=== PATIENT | male | born 1970 | race Caucasian/White ===

== ENCOUNTER 2017-01-30 20:20 | Emergency (ER) | payer BC ==
[2017-01-30 20:27] VITALS: RESP 18
--- NOTE | 2017-01-30 21:23 | ED ---
General Adult HPI - General Chief complaint: Shortness of Breath Stated complaint: congestion, jamil Time Seen by Provider: 01/30/17 20:57 Source: patient Mode of arrival: ambulatory Limitations: no limitations - History of Present Illness Initial comments: Patient is a 46-year-old male with history of GERD, hypertension, hyperlipidemia , tobacco abuse presenting with cough and shortness breath for the past 2 weeks. Patient states he been trying everything [id number] without relief. Patient states she has multiple sick contacts at home and at work. Patient smokes on average a pack a day. Patient denies fever, chills, chest pain. Patient states he wakes up having coughing fits at night. Patient denies influenza vaccine this year. - Related Data Home Medications Medication Instructions Recorded Confirmed Metoprolol Tartrate [Lopressor] 100 mg PO BID 04/10/15 01/30/17 Aspirin 325 mg PO DAILY 01/30/17 01/30/17 Lansoprazole 15 mg PO DAILY 01/30/17 01/30/17 Olmesartan/Hydrochlorothiazide 1 tab PO DAILY 01/30/17 01/30/17 [Benicar Hct 40-12.5 mg Tablet] Simvastatin [Zocor] 20 mg PO DAILY 01/30/17 01/30/17 Allergies Allergy/AdvReac Type Severity Reaction Status Date / Time No Known Allergies Allergy Verified 01/30/17 21:13 Review of Systems ROS Statement: Those systems with pertinent positive or pertinent negative responses have been documented in the HPI. Constitutional: No fever and no chills. HENT: +congestion, no rhinorrhea and +sore throat. Eyes: No discharge and no redness. Respiratory: +cough and +shortness of breath. Cardiovascular: No chest pain and no palpitations. Gastrointestinal: No nausea, no vomiting, no abdominal pain and no diarrhea. Genitourinary: No dysuria and no hematuria. Musculoskeletal: No back pain and no arthralgias. Skin: No pallor and no rash. Neurological: No dizziness and No headaches. ROS Other: All systems not noted in ROS Statement are negative. Past Medical History Past Medical History: CVA/TIA, GERD/Reflux, Hypertension Additional Past Medical History / Comment(s): hypercholestremia History of Any Multi-Drug Resistant Organisms: None Reported Additional Past Surgical History / Comment(s): eye surgery Past Psychological History: No Psychological Hx Reported Smoking Status: Current every day smoker Past Alcohol Use History: None Reported Past Drug Use History: Marijuana General Exam - General Exam Comments Initial Comments: Constitutional: Patient appears well-developed and well-nourished. Mild distress with a dry tacky cough. Head: Normocephalic and atraumatic. Eyes: Conjunctivae and EOM are normal. Right eye exhibits no discharge. Left eye exhibits no discharge. No scleral icterus. Neck: Normal range of motion. Neck supple. Cardiovascular: Normal rate and regular rhythm. No murmur heard. Pulmonary/Chest: Effort normal and breath sounds normal. No respiratory distress. No wheezes. Abdominal: Soft. No distension. There is no tenderness. There is no rebound and no guarding. Musculoskeletal: Normal range of motion. No edema or tenderness. Neurological: Patient alert and oriented to person, place, and time. Skin: Skin is warm and dry. Not diaphoretic. Nursing notes and vitals reviewed. Limitations: no limitations Course Vital Signs 01/30/17 01/30/17 20:23 21:31 Temperature 97.4 F L 97.1 F L Pulse Rate 84 74 Respiratory 18 18 Rate Blood Pressure 160/97 130/78 O2 Sat by Pulse 98 99 Oximetry - Reevaluation(s) Reevaluation #1: 01/30/17 22:13 Patient resting comfortably in bed awaiting flu results. Medical Decision Making - Medical Decision Making Patient's a 46-year-old male with tobacco abuse presenting with cough for 2 weeks. Patient has multiple sick contacts. Physical exam unremarkable chest x- ray negative. Flu negative. Prior to discharge, patient was resting comfortably in bed. Course of stay improved. Denies pain. Discussed physical exam and diagnostic tests with patient. Questions answered and patient is agreeable to discharge with close follow up with Primary Care Physician. Instructed to return to Emergency Department if symptoms worsen. - Lab Data Lab Results 01/30/17 Range/Units 21:25 Influenza Type A RNA Not Detected (Not Detectd) Influenza Type B (PCR) Not Detected (Not Detectd) Disposition Clinical Impression: Cough Disposition: HOME SELF-CARE Condition: Good Instructions: Chronic Cough (ED) Referrals: Paulo Rowell MD [Primary Care Provider] - 1-2 days
--- NOTE | 2017-01-30 21:36 | XR ---
EXAMINATION TYPE: XR chest 2V DATE OF EXAM: 01/30/2017 9:28 PM COMPARISON: 02/10/2014 HISTORY: Cough and congestion TECHNIQUE: Frontal and lateral views of the chest are obtained. FINDINGS: Heart and mediastinum are normal. Lungs are clear. Diaphragm is normal. Bony thorax is int act. IMPRESSION: Normal chest. No change.
[2017-01-30 22:42] VITALS: BP 123/88; PULSE 66; TEMP 97.7
== END 2017-01-30 22:41 | disposition home or self-care (01) ==
LOC: EC 20:20
DX: R05 Cough (principal); R06.02 Shortness of breath; I10 Essential (primary) hypertension; K21.9 Gastro-esophageal reflux disease without esophagitis; E78.00 Pure hypercholesterolemia, unspecified; F17.200 Nicotine dependence, unspecified, uncomplicated; Z79.82 Long term (current) use of aspirin; Z79.899 Other long term (current) drug therapy
CPT/HCPCS: 71020; 87502; 99285

== ENCOUNTER 2018-05-07 17:29 | Inpatient (IN) | payer BC ==
[2018-05-07 18:17] LABS: Basophils # (A) 0.1 k/uL (0-0.2); Basophils % (A) 1 %; Eosinophils # (A) 0.2 k/uL (0-0.7); Eosinophils % (A) 2 %; HCT 44.9 % (39.0-53.0); Lymphocytes # (A) 2.3 k/uL (1.0-4.8); Lymphocytes % (A) 27 %; MCH 29.4 pg (25.0-35.0); MCHC 35.6 g/dL (31.0-37.0); MCV 82.6 fL (80.0-100.0); Mean Platelet Volume 6.2; Monocytes # (A) 0.5 k/uL (0-1.0); Monocytes % (A) 6 %; Neutrophils # (A) 5.4 k/uL (1.3-7.7); Neutrophils % (A) 63 %; Platelet Count 337 k/uL (150-450); RBC 5.44 m/uL (4.30-5.90); RDW 13.1 % (11.5-15.5); WBC 8.6 k/uL (3.8-10.6)
[2018-05-07 18:26] LABS: ALT 32 U/L (21-72); AST 22 U/L (17-59); Albumin 4.3 g/dL (3.5-5.0); Alkaline Phosphatase 68 U/L (38-126); Anion Gap 12 mmol/L; Blood Urea Nitrogen 18 mg/dL (9-20); Calcium 9.4 mg/dL (8.4-10.2); Carbon Dioxide 24 mmol/L (22-30); Chloride 102 mmol/L (98-107); Glucose 96 mg/dL (74-99); Partial Thromboplastin Time 25.9 sec (22.0-30.0); Potassium 4.2 mmol/L (3.5-5.1); Prothrombin Time 10.1 sec (9.0-12.0); Sodium 138 mmol/L (137-145); Total Bilirubin 0.5 mg/dL (0.2-1.3)
[2018-05-07 19:10] LABS: Creatine Kinase MB 2.8 ng/mL (0.0-2.4); Troponin I 0.075 ng/mL (0.000-0.034)
[2018-05-07] MEDS ORDERED: ASPIRIN 81 MG PO STA (19:19)
[2018-05-07] MEDS ORDERED: HEPARIN SODIUM,PORCINE 5,000 UNIT/ML 1 ML VIAL IV ONE (19:31)
[2018-05-07] MEDS ORDERED: HEPARIN SODIUM,PORCINE 5,000 UNIT/ML 1 ML VIAL IV PRN (19:31)
--- NOTE | 2018-05-07 19:41 | ED ---
Chest Pain HPI - General Chief Complaint: Chest Pain Stated Complaint: CHEST/ABDOMINAL PAIN RADIATING TO NECK AND BACK Time Seen by Provider: 05/07/18 19:18 Source: patient Mode of arrival: ambulatory Limitations: no limitations - History of Present Illness Initial Comments: Patient is a 47-year-old male who presents with a chief complaint of diaphoresis , nausea, shoulder and jaw pain, and lightheadedness. Patient states that his symptoms started last Monday. 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 The patient states that he was not heavily exerting himself the time. The patient states that given the repeated episodes of the symptoms she decided to come to the ER for evaluation. Patient states he is a current pack and a half per day smoker, he has hypertension, hyperlipidemia, and hypertriglyceridemia. The patient is not diabetic though he states diabetes runs in his family. The patient states he cannot identify an inciting incident. Aggravating factors are exertion. Alleviating factors are rest. - Related Data Home Medications Medication Instructions Recorded Confirmed Metoprolol Tartrate [Lopressor] 100 mg PO BID 04/10/15 05/07/18 Aspirin 325 mg PO DAILY 01/30/17 05/07/18 Lansoprazole 15 mg PO DAILY 01/30/17 05/07/18 Olmesartan/Hydrochlorothiazide 1 tab PO DAILY 01/30/17 05/07/18 [Benicar Hct 40-12.5 mg Tablet] Simvastatin [Zocor] 20 mg PO DAILY 01/30/17 05/07/18 Allergies Allergy/AdvReac Type Severity Reaction Status Date / Time No Known Allergies Allergy Verified 05/07/18 19:40 Review of Systems ROS Statement: Those systems with pertinent positive or pertinent negative responses have been documented in the HPI. ROS Other: All systems not noted in ROS Statement are negative. Cardiovascular: Reports: chest pain, dyspnea on exertion Past Medical History Past Medical History: CVA/TIA, GERD/Reflux, Hypertension Additional Past Medical History / Comment(s): hypercholestremia History of Any Multi-Drug Resistant Organisms: None Reported Additional Past Surgical History / Comment(s): eye surgery Past Psychological History: No Psychological Hx Reported Smoking Status: Current every day smoker Past Alcohol Use History: Occasional Past Drug Use History: Marijuana General Exam Limitations: no limitations General appearance: alert, in no apparent distress Head exam: Present: atraumatic, normocephalic Eye exam: Present: normal appearance ENT exam: Present: normal exam Neck exam: Present: normal inspection Respiratory exam: Present: normal lung sounds bilaterally. Absent: respiratory distress, wheezes Cardiovascular Exam: Present: regular rate, normal rhythm GI/Abdominal exam: Present: soft. Absent: distended, tenderness Rectal exam: Present: deferred Extremities exam: Present: normal inspection Back exam: Present: normal inspection Neurological exam: Present: alert, oriented X3 Psychiatric exam: Present: normal affect, normal mood Skin exam: Present: warm, dry, intact Course Vital Signs 05/07/18 05/07/18 17:42 20:20 Temperature 98.1 F Pulse Rate 69 60 Respiratory 18 18 Rate Blood Pressure 141/92 116/68 O2 Sat by Pulse 98 98 Oximetry Chest Pain MDM - Differential Diagnosis AMI, ACS - MDM Patient presents with a chief complaint of anginal type symptoms. On initial evaluation, vitals are stable, patient is in no acute distress. EKG and labs performed while patient was in triage. EEG performed at 1803 shows normal sinus rhythm with a rate of 67 bpm. EKG is otherwise unremarkable. Lab evaluation shows positive cardiac enzymes with a troponin of 0.075, and a CK-MB of 2.8. Currently pending BNP, and chest x-ray. On exam, patient has nasal symptoms with minimal exertion. Even this finding, the patient was started on heparin. He denies any history of GI bleeding or active bleeding. She was given an aspirin. Discussed with pharmacy, patient to be started on low intensity heparin drip. 7:54 PM Case discussed with Dr. Bhagat who accepts admission with consult cardiology. 9:06 PM CXR and BNP unremarkable. patient remains stable. - Wells Criteria Clinical Symptoms of DVT: (0) No No Alternative Diagnosis: (0) No Immobilization of Surgery in Previous 4 Weeks: (0) No Previous DVT/PE: (0) No Hemoptysis: (0) No Malignancy: (0) No - PERC Rule Heart Rate < 100: (0) No g: (0) No No Prior History pf DVT/PE: (0) No No Recent Trauma or Surgery: (0) No Hemoptysis: (0) No No Exogenous Estrogen: (0) No No Clinical Signs Suggesting DVT: (0) No - LEE Score Age > 65: (0) No 3 or more CAD Risk Factors: (1) Yes Known CAD with more than 50% Stenosis: (0) No Aspirin use within the Past 7 Days: (1) Yes Elevated Cardiac Markers: (1) Yes ST Deviation Greater than 0.5mm: (0) No Disposition Clinical Impression: NSTEMI (non-ST elevated myocardial infarction) Disposition: ADMITTED IP TO THIS HOSP Condition: Good - Out of Hospital Transfer - Req. Specs Out of Hospital Transfer - Requested Specifics: Telemetry Unit
[2018-05-07] MEDS ORDERED: HEPARIN SOD,PORK IN 0.45% NACL 25,000 UNIT in 0.45% NACL 1 500ML.BAG IV SCH (19:45)
[2018-05-07] MEDS ORDERED: NALOXONE 0.4 MG/ML 1 ML VIAL IV PRN (19:50)
--- NOTE | 2018-05-07 20:16 | XR ---
EXAMINATION TYPE: XR chest 2V DATE OF EXAM: 05/07/2018 COMPARISON: 01/30/2017 HISTORY: Chest pain left arm pain TECHNIQUE: Frontal and lateral views of the chest are obtained. FINDINGS: Heart and mediastinum are normal. Lungs are clear. Diaphragm is normal. Bony thorax appear s normal. IMPRESSION: Normal chest. No change.
[2018-05-07 22:57] LABS: Glucose,Whole Blood 124 mg/dL (75-99)
[2018-05-07 23:18] VITALS: BMI 34.6
[2018-05-08 04:48] LABS: Basophils # (A) 0.1 k/uL (0-0.2); Basophils % (A) 1 %; Eosinophils # (A) 0.2 k/uL (0-0.7); Eosinophils % (A) 2 %; HCT 43.7 % (39.0-53.0); Lymphocytes # (A) 3.6 k/uL (1.0-4.8); Lymphocytes % (A) 50 %; MCH 28.8 pg (25.0-35.0); MCHC 34.3 g/dL (31.0-37.0); Mean Platelet Volume 6.5; Monocytes # (A) 0.5 k/uL (0-1.0); Monocytes % (A) 7 %; Neutrophils # (A) 2.8 k/uL (1.3-7.7); Neutrophils % (A) 38 %; Platelet Count 301 k/uL (150-450); RDW 12.9 % (11.5-15.5); WBC 7.3 k/uL (3.8-10.6)
[2018-05-08 05:31] LABS: Anion Gap 10 mmol/L; Blood Urea Nitrogen 15 mg/dL (9-20); Carbon Dioxide 24 mmol/L (22-30); Chloride 105 mmol/L (98-107); Glucose 88 mg/dL (74-99); Potassium 4.1 mmol/L (3.5-5.1); Sodium 139 mmol/L (137-145)
[2018-05-08] MEDS ORDERED: ALPRAZolam 0.5 MG TAB PO PRN (09:29)
[2018-05-08] MEDS ORDERED: ALPRAZolam 0.25 MG TAB PO PRN (09:29)
[2018-05-08] MEDS ORDERED: NITROGLYCERIN SL TABS 0.4 MG TAB SUBLINGUAL PRN ×2 (09:29→13:20)
[2018-05-08] MEDS ORDERED: SODIUM CHLORIDE 0.9% 1,000 ML in EMPTY BAG 1 BAG IV ONE (09:29)
[2018-05-08] MEDS ORDERED: ASPIRIN 325 MG TAB PO STA (09:36)
[2018-05-08] MEDS ORDERED: ATORVASTATIN 80 MG TAB PO STA (09:36)
--- NOTE | 2018-05-08 10:40 | CONS ---
CONSULTATION CHIEF COMPLAINT: Chest pain. Ferny is a 47-year-old gentleman with history of hypertension and dyslipidemia and smoking, who presented to hospital complaining of chest pain. He went to work around 4:00 yesterday and started having what he describes as epigastric discomfort, nausea, and felt unwell. It was moderate to severe intensity, came on at rest without clear- cut relieving or exacerbating factors. These symptoms persisted and the patient came to the ER and got admitted from there with a diagnosis of unstable angina. His EKG does not reveal any ischemic changes. However, his troponin was elevated at 0.07 and the second set was 0.1 and the third set was 1.2. At the time of my evaluation this morning, patient is chest pain-free and is hemodynamically stable. His labs show a hemoglobin of 15, platelet count of 301, potassium is 4.1 and creatinine is 0.9. Patient's clinical presentation is consistent with a diagnosis of non ST-segment elevation CA and I advised the patient to undergo cardiac catheterization with a view to performing angioplasty. The patient has been explained of risks, benefits and alternatives, understood and accepted. PAST MEDICAL HISTORY: Significant for hypertension and dyslipidemia. MEDICATIONS: Current medications include Zocor 20 q. daily, Benicar, Lopressor 100 b.i.d., Protonix, and aspirin. ALLERGIES: There are no known drug allergies. FAMILY HISTORY: Family history is significant for coronary artery disease in his father. SOCIAL HISTORY: Significant for smoking. There is no history of EtOH abuse or drug abuse. REVIEW OF SYSTEMS: HEENT is unremarkable. CARDIAC: As described above. RESPIRATORY: Negative. GI: Negative. GENITOURINARY: Negative. ALLERGY/IMMUNOLOGICAL: Negative. SKIN: Negative. MUSCULOSKELETAL: Negative. ENDOCRINE: Negative. HEMATOLOGICAL: Negative. DERM: Negative. CONSTITUTIONAL: Negative. ONCOLOGICAL: Negative. Rest of the system review is not relevant. PHYSICAL EXAMINATION: On exam, patient is comfortable at rest. Afebrile. Vital signs are stable. There is no jugular venous distention. Carotid upstroke is normal. There is no bruit. Chest exam reveals good air entry bilaterally. Heart exam reveals first and second heart sounds. No gallop. No murmur. No rub. Abdomen is soft, nontender. Examination of extremities did not reveal any edema. Peripheral pulses are felt. FAMILY EDUCATOR exam did not reveal focal neurological deficits. LABS: Labs show a hemoglobin of 15. Creatinine is 0.9. Troponins are elevated. ASSESSMENT: 1. Acute non ST-segment elevation myocardial infarction. 2. Hypertension. 3. Dyslipidemia. PLAN: I will obtain a 2D echo to assess LV function and schedule him for cardiac catheterization. The patient had been explained of risks, benefits and alternatives understood and accepted. NELA / SIOMARA: [id number] /
[2018-05-08] MEDS ORDERED: LIDOCAINE 1% INJ 10MG/ML (20 ML MDV) ONE (11:15)
--- NOTE | 2018-05-08 11:18 | P.HPIM ---
History of Present Illness H&P Date: 05/08/18 Chief Complaint: epigastric discomfort 47-year-old male who presented to the emergency room with a chief complaint of feeling "queasy". The patient reports his symptoms started on Monday. He states he had some epigastric discomfort and some tightness in his arm and shoulder. He reports nausea. Denies emesis. He states he had ate a large meal and attributed his symptoms to that. He states he was at work yesterday when he began to have the same feelings of queasiness. He also reports tightness in his back and neck. He once again denied any chest pain. He denied shortness of breath. He did have nausea again yesterday, but denied any episodes of emesis. Denies lightheadedness or dizziness. Denies fever or chills. The patient has a history of hypertension, GERD, and TIA in 2014. He is a current every day smoker and reports smoking between 1-1/2 packs per day. Chest x-ray completed in the emergency room was negative for acute process. EKG revealed sinus mechanism without ST elevation. Troponins were elevated 0.075, 0.144, and 1.200. White count 8.6. Hemoglobin 16.0. Platelet count 337. Sodium 130. Potassium 4.2. BUN 18. Creatinine 1.12. BNP 49. The patient was placed on a heparin drip and admitted to the hospital for further evaluation under the care of Dr. Bhagat. Consultations were placed to cardiology. Review of Systems Those systems with pertinent positive or pertinent negative responses have been documented in the HPI Past Medical History Past Medical History: CVA/TIA, GERD/Reflux, Hypertension Additional Past Medical History / Comment(s): hypercholestremia History of Any Multi-Drug Resistant Organisms: None Reported Additional Past Surgical History / Comment(s): eye surgery, vasectomy Past Psychological History: No Psychological Hx Reported Smoking Status: Current every day smoker Past Alcohol Use History: Occasional Past Drug Use History: Marijuana - Past Family History Father Additional Family Medical History / Comment(s): from circulation issues at the age of 63 Mother Additional Family Medical History / Comment(s): from CA at the age of 58 Medications and Allergies Home Medications Medication Instructions Recorded Confirmed Type Metoprolol Tartrate [Lopressor] 100 mg PO BID 04/10/15 05/07/18 History Aspirin 325 mg PO DAILY 01/30/17 05/07/18 History Lansoprazole 15 mg PO DAILY 01/30/17 05/07/18 History Olmesartan/Hydrochlorothiazide 1 tab PO DAILY 01/30/17 05/07/18 History [Benicar Hct 40-12.5 mg Tablet] Simvastatin [Zocor] 20 mg PO DAILY 01/30/17 05/07/18 History Allergies Allergy/AdvReac Type Severity Reaction Status Date / Time No Known Allergies Allergy Verified 05/07/18 19:40 Physical Exam Vitals: Vital Signs Temp Pulse Pulse Resp BP BP Pulse Ox 05/08/18 09:00 62 102/74 97 05/08/18 08:00 98 F 68 109/68 97 05/08/18 04:00 97.6 F 56 L 12 109/81 98 05/08/18 00:00 97.5 F L 57 L 16 105/67 95 05/07/18 22:07 98.2 F 68 18 118/80 98 05/07/18 22:00 97.5 F L 54 L 18 127/86 05/07/18 21:43 65 18 125/72 96 05/07/18 20:20 60 18 116/68 98 05/07/18 19:15 66 05/07/18 17:42 98.1 F 69 18 141/92 98 Intake and Output 05/07/18 05/08/18 05/08/18 22:59 06:59 14:59 Intake Total 623 Output Total 0 Balance 623 0 Intake: Intake, IV Titration 143 Amount Heparin Sod,Pork in 0.45% 143 NaCl 25,000 unit In 0.45 % NaCl 1 500ml.bag @ 12 UNITS/KG/HR 23.62 mls/hr IV .[id number] [facility] Rx#: [id number] Tube Feeding 480 Output: Urine 0 Other: Voiding Method Toilet # Voids 1 0 Weight 97.3 kg 97.3 kg 97.3 kg GENERAL: This is a 47-year-old male in no apparent distress at the time of examination. Pleasant and cooperative. HEENT: Head is atraumatic, normocephalic. Pupils are equal, round, and reactive to light. Sclerae anicteric. Conjunctivae are clear. Mucus membranes of the mouth are moist. Neck is supple. RESPIRATORY: Clear to ausculation. No wheezes, rales, or rhonchi. No use of accessory muscles. Patient maintaining oxygen saturation greater than 92%. No chest wall tenderness is noted on palpation or with deep breathing. CARDIOVASCULAR: Regular rate and rhythm. S1 and S2 noted. No systolic or diastolic murmur auscultated. No JVD noted. No S3 or S4 noted. GASTROINTESTINAL: No distention noted. Abdomen soft and round. Normal active bowel sounds auscultated x 4 quadrants. No pain or tenderness noted upon palpation. INTEGUMENTARY: No cyanosis. No jaundice. No rashes noted. No cellulitis noted. EXTREMITIES: 2+ peripheral pulses. No evidence of peripheral edema. No calf tenderness noted. NEUROLOGIC: Cranial nerves II-XII intact. PSYCHIATRIC: Awake, alert, and oriented X 3. Appropriate affect. Intact judgement and insight. Results CBC & Chem 7: 05/08/18 04:23 05/08/18 04:23 Labs: Abnormal Lab Results - Last 24 Hours (Table) 05/07/18 05/07/18 05/07/18 Range/Units 18:06 21:40 22:56 APTT (22.0-30.0) sec POC Glucose (mg/dL) 124 H (75-99) mg/dL CK-MB (CK-2) 2.8 H* (0.0-2.4) ng/mL Troponin I 0.075 H* 0.144 H* (0.000-0.034) ng/mL 05/08/18 05/08/18 05/08/18 Range/Units 02:10 04:23 09:01 APTT 36.8 H 47.7 H (22.0-30.0) sec POC Glucose (mg/dL) (75-99) mg/dL CK-MB (CK-2) (0.0-2.4) ng/mL Troponin I 1.200 H* (0.000-0.034) ng/mL Thrombosis Risk Factor Assmnt - Choose All That Apply Any of the Below Risk Factors Present?: Yes Each Factor Represents 1 point: Age 41-60 years, Obesity (BMI >25) Thrombosis Risk Factor Assessment Total Risk Factor Score: 2 Thrombosis Risk Factor Assessment Level: Low Risk Assessment and Plan Plan: ASSESSMENT: 1. Acute non-ST elevated myocardial infarction 2. Hypertension 3. History of TIA, 2015 4. Dyslipidemia 5. Nicotine dependence, patient is a current cigarette smoker and reports 1 to 1.5 PPD 6. Obesity: BMI 34.6 PLAN: Cardiology on consult. Appreciate recommendations and input Echocardiogram ordered. Await results Patient to undergo cardiac catheterization Home meds as appropriate Monitor labs GI prophylaxis: Pepcid 20mg PO BID DVT prophylaxis: Patient currently on heparin drip Monitor vital signs and address as appropriate Discharge planning: Patient to return home when stable Further recommendations pending patient's course Nurse practitioner note has been reviewed by physician. Signing provider agrees with the documented findings, assessment, and plan of care.
[2018-05-08 11:24] LABS: Glucose,Whole Blood 97 mg/dL (75-99)
[2018-05-08] MEDS ORDERED: HEPARIN SODIUM,PORCINE 30 ML 30 ML ONE (11:35)
[2018-05-08] MEDS ORDERED: MIDAZOLAM 2 MG/2 ML VIAL ONE (11:38)
[2018-05-08] MEDS ORDERED: SODIUM CHLORIDE 0.9% 500 ML IV ONE ×2 (11:42→12:36)
[2018-05-08] MEDS ORDERED: MIDAZOLAM 2 MG/2 ML VIAL IVP ONE (11:48)
[2018-05-08] MEDS ORDERED: LIDOCAINE 1% INJ 10MG/ML (20 ML MDV) SQ ONE (11:50)
[2018-05-08] MEDS ORDERED: fentaNYL (PF) 50 MCG/ML 2 ML AMP ONE (11:53)
[2018-05-08] MEDS: fentaNYL (PF) 50 MCG/ML 2 ML AMP IVP ONE ×2 (11:54→12:34)
[2018-05-08] MEDS ORDERED: BIVALIRUDIN 250 MG in SODIUM CHLORIDE 0.9% 50 ML IV ONE (12:21)
[2018-05-08] MEDS ORDERED: BIVALIRUDIN BOLUS 250 MG/50 ML IV ONE ×2 (12:21)
[2018-05-08] MEDS ORDERED: niCARdipine 25 MG/10 ML VIAL ONE (12:23)
[2018-05-08] MEDS ORDERED: CLOPIDOGREL 75 MG TAB ONE (12:23)
--- NOTE | 2018-05-08 12:27 | ECHOF ---
Referral Reason:mi MEASUREMENTS -------- HEIGHT: 165.1 cm WEIGHT: 97.5 kg BP: 123/80 IVSd: 1.3 cm (0.6 - 1.1) LVIDd: 3.7 cm (3.9 - 5.3) LVPWd: 1.2 cm (0.6 - 1.1) IVSs: 1.6 cm LVIDs: 2.8 cm LVPWs: 1.2 cm Ao Diam: 3.3 cm (2.0 - 3.7) AV Cusp: 1.7 cm (1.5 - 2.6) LA Diam: 2.9 cm (2.7 - 3.8) MV EXCURSION: 19.913 mm (> 18.000) MV EF SLOPE: 143 mm/s (70 - 150) EPSS: 0.8 cm MV E Teddy: 0.64 m/s MV DecT: 170 ms MV A Teddy: 0.50 m/s MV E/A Ratio: 1.28 RAP: 5.00 mmHg RVSP: 9.06 mmHg FINDINGS -------- Sinus rhythm. This was a techncally difficult study with suboptimal views, , Lumason utilized for enhancement of im ages. The left ventricular size is normal. There is borderline concentric left ventricular hypertrophy. Overall left ventricular systolic function is low-normal with, an EF between 50 - 55 %. Inferior b rohit Hypokinesis The right ventricle is normal in size. The left atrial size is normal. The right atrial size is normal. 5.0mg OF Lumason UTLIZED: 2 OR MORE WALL SEGMENTS NOT VISUALIZED. The aortic valve was not well visualized. Mild mitral annular calcification present. Mild mitral regurgitation is present. Mild tricuspid regurgitation present. There is no evidence of pulmonary hypertension. The right v entricular systolic pressure, as measured by Doppler, is 9.06mmHg. The pulmonic valve was not well visualized. The aortic root size is normal. There is no pericardial effusion. CONCLUSIONS -------- 1. This was a techncally difficult study with suboptimal views, , Lumason utilized for enhancement of images. 2. The left ventricular size is normal. 3. There is borderline concentric left ventricular hypertrophy. 4. Overall left ventricular systolic function is low-normal with, an EF between 50 - 55 %. 5. Inferior basal Hypokinesis 6. The right ventricle is normal in size. 7. The left atrial size is normal. 8. The right atrial size is normal. 9. 5.0mg OF Lumason UTLIZED: 2 OR MORE WALL SEGMENTS NOT VISUALIZED. 10. The aortic valve was not well visualized. 11. Mild mitral annular calcification present. 12. Mild mitral regurgitation is present. 13. Mild tricuspid regurgitation present. 14. There is no evidence of pulmonary hypertension. 15. The right ventricular systolic pressure, as measured by Doppler, is 9.06mmHg. 16. The pulmonic valve was not well visualized. 17. The aortic root size is normal. 18. There is no pericardial effusion. SPANISH SPEAKING BABYSITTER: Abbey Hernandez RDCS
[2018-05-08] MEDS ORDERED: CLOPIDOGREL 75 MG TAB PO ONE ×2 (12:29)
[2018-05-08] MEDS ORDERED: IOPAMIDOL-370 125ML BTL INJ ONE ×2 (12:30→13:11)
[2018-05-08] MEDS: niCARdipine Syringe (1,000 mcg/10 mL) INTRACORON ONE ×4 (12:37→13:10)
[2018-05-08] MEDS: NITROGLYCERIN 1000MCG/10ML SYRINGE INTRACORON ONE ×4 (12:37→13:10)
[2018-05-08] MEDS ORDERED: IOPAMIDOL-370 100ML BTL INJ ONE (13:14)
--- NOTE | 2018-05-08 13:16 | CC ---
CARDIAC CATHETERIZATION REPORT INDICATION: Non ST-segment elevation FL. PROCEDURE NOTE: After obtaining informed consent, left heart catheterization and coronary angiogram were performed via the right femoral artery using standard Margaret catheters. The left coronary with a size 4 Margaret was selectively engaging the at 3.5 got better images of the LAD. The patient received moderate conscious sedation and total sedation time was 20 minutes. The patient's procedure was completed uneventfully. FINDINGS: 1. HEMODYNAMICS: Left ventricular end-diastolic pressure is 8 to 12 mm. There is no significant gradient across the aortic valve. 2. LEFT VENTRICULOGRAM: Left ventriculogram is not performed. 3. ANGIOGRAPHIC DATA: 4. Left main coronary artery: Left main coronary artery is a normal-sized vessel and is free of stenosis. Divides into left anterior descending coronary artery and circumflex coronary artery. LAD and its branches, circumflex coronary artery and its branches are free of significant stenosis. There are extensive collaterals from the LAD to the distal right coronary artery. Next, right coronary artery appears totally occluded in its distal portion, which is probably the reason patient had myocardial infarction. 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 PLAN: I am going to have Dr. Gutierrez, the on-call v belt coverer, review the angiographic data and perform angioplasty of the right coronary artery. MMODL / IJN: [id number] /
[2018-05-08] MEDS ORDERED: ATROPINE SULFATE 0.1 MG/ML 10ML SYRINGE IV PRN (13:20)
[2018-05-08] MEDS ORDERED: ZOLPIDEM 5 MG TAB PO PRN (13:20)
[2018-05-08] MEDS ORDERED: MAG HYDROX/AL HYDROX/SIMETH 30 ML CUP PO PRN (13:20)
[2018-05-08] MEDS ORDERED: RX INFO: IV CONTRAST WAS GIVEN 1 EACH MISC MISCELLANE PRN (13:20)
[2018-05-08] MEDS ORDERED: SODIUM CHLORIDE 0.9% 1,000 ML IV SCH (13:30)
--- NOTE | 2018-05-08 14:37 | LTR ---
DATE OF SERVICE: 05/08/2017 RE: William Ferny Dear Dr. Rowell; Mr. Ferny Thomas presented to the hospital with chest discomfort and ruled in for acute non ST-elevation myocardial infarction. He underwent a heart catheterization and that revealed acute total occlusion of the right coronary artery distally where he underwent successful stenting of the RCA with good angiographic results and without any complication. I want to thank you for allowing us participate in his care and please do not hesitate to call if you have any question or concern. Sincerely, MD NELA Alvarez / SIOMARA: [id number] /
--- NOTE | 2018-05-08 15:22 | PTCA ---
PERCUTANEOUSTRANS CORORONARY ANGIOGRAPHY DATE OF SERVICE: May 08, 2018 PERFORMING PHYSICIAN: Gino Gutierrez MD, performance consultant. PROCEDURE PERFORMED: 1. Successful stenting of the distal right coronary artery using 2.5 x 18 mm Xience ALESSANDRO with good angiographic results. 2. Successful stenting of the mid to distal right coronary artery using 3.0 x 38 mm Xience ALESSANDRO with good angiographic results. 3. An aspiration thrombectomy from the right coronary artery. INDICATION: This is a pleasant 47-year-old gentleman with a past medical history significant for hypertension and dyslipidemia who presented to the hospital complaining of chest discomfort that started this past Monday, which is 2 days ago. The patient was seen and evaluated by Dr. Root. He was ruled in for acute non ST elevation myocardial infarction. Heart catheterization was performed by Dr. 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 The decision was made towards percutaneous coronary intervention of the right coronary artery. APPROACH: Right common femoral artery. COMPLICATION: None. LEVEL OF SEDATION: Moderate with sedation length of 62 minutes. PROCEDURE DESCRIPTION: After diagnostic heart catheterization was performed by Dr. Root and after reviewing the angiogram, we decided to pursue with an intervention on the right coronary artery. Anticoagulation was initiated using Angiomax. Subsequently I did engage the RCA using JR4 guiding catheter. After that, I did wire the right coronary artery using an 014 whisper wire. I did cross the acute total occlusion in the mid to distal right coronary artery. Subsequently I did balloon angioplasty using 2.0 x 12 mm balloon and in spite of that, I was unable to restore the flow in the right coronary artery. I decided to do an aspiration thrombectomy which was performed using the export catheter and I was unable to extract any thrombus from the right coronary artery. I decided at that point to balloon using a bigger balloon, so I did use a 2.5 x 15 mm balloon and again I did balloon the distal and mid to distal right coronary artery. With a 2.5 balloon, I was able to restore some flow in the RCA and see the bifurcation of the RCA into PDA and PLV branches. I was able to tell that there was a tight lesion at the bifurcation of the RCA distally and also at the mid to distal right coronary artery. I did decide to stent the RCA distally, which I did using 2.5 x 18 mm Xience ALESSANDRO where the stent was positioned under fluoroscopy guidance and deployed under 12 atmospheres for 20 seconds. I post dilated the stent using 2.75 mm NC balloon. 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 I decided to cover that with a stent. I did use 3.0 x 38 mm another Xience ALESSANDRO where the stent was positioned under fluoroscopy guidance with about 2 mm overlap between this stent and the previous stents. The second stent was deployed under 12 atmospheres again for 30 seconds. The following angiogram showed good angiographic results. The procedure was completed without any complication. CONCLUSION: 1. Acute non ST elevation myocardial infarction in this 47-year-old gentleman with history of hypertension and dyslipidemia. 2. 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 3. Successful stenting of the distal RCA using 2.5 x 18 mm Xience ALESSANDRO with good angiographic results. 4. Successful stenting of the mid to distal right coronary artery using 3.0 x 38 mm Xience ALESSANDRO with good angiographic results. POSTPROCEDURE MANAGEMENT: 1. Maximize medical treatment. 2. Follow up with the patient. MMODL / IJN: [id number] /
[2018-05-08] MEDS: FAMOTIDINE 20 MG TAB PO SCH (22:37)
[2018-05-09 07:46] LABS: Basophils # (A) 0.1 k/uL (0-0.2); Basophils % (A) 1 %; Eosinophils # (A) 0.1 k/uL (0-0.7); Eosinophils % (A) 2 %; HCT 42.3 % (39.0-53.0); HGB 14.7 gm/dL (13.0-17.5); Lymphocytes # (A) 2.4 k/uL (1.0-4.8); Lymphocytes % (A) 33 %; MCH 29.2 pg (25.0-35.0); MCHC 34.7 g/dL (31.0-37.0); MCV 84.2 fL (80.0-100.0); Mean Platelet Volume 6.3; Monocytes # (A) 0.4 k/uL (0-1.0); Monocytes % (A) 6 %; Neutrophils # (A) 4.2 k/uL (1.3-7.7); Neutrophils % (A) 57 %; Platelet Count 305 k/uL (150-450); RBC 5.03 m/uL (4.30-5.90); RDW 13.3 % (11.5-15.5); WBC 7.3 k/uL (3.8-10.6)
[2018-05-09] MEDS ORDERED: OLMESARTAN PO SCH (09:00)
[2018-05-09] MEDS ORDERED: [UNRECOGNIZED DRUG - OTHER] PO SCH (09:00)
[2018-05-09] MEDS ORDERED: HYDROCHLOROTHIAZIDE PO SCH (09:00)
--- NOTE | 2018-05-09 11:29 | P.PN ---
Subjective Progress Note Date: 05/09/18 47-year-old male who presented to the emergency room with a chief complaint of feeling "queasy". The patient reports his symptoms started on Monday. He states he had some epigastric discomfort and some tightness in his arm and shoulder. He reports nausea. Denies emesis. He states he had ate a large meal and attributed his symptoms to that. He states he was at work yesterday when he began to have the same feelings of queasiness. He also reports tightness in his back and neck. He once again denied any chest pain. He denied shortness of breath. He did have nausea again yesterday, but denied any episodes of emesis. Denies lightheadedness or dizziness. Denies fever or chills. The patient has a history of hypertension, GERD, and TIA in 2014. He is a current every day smoker and reports smoking between 1-1/2 packs per day. Chest x-ray completed in the emergency room was negative for acute process. EKG revealed sinus mechanism without ST elevation. Troponins were elevated 0.075, 0.144, and 1.200. White count 8.6. Hemoglobin 16.0. Platelet count 337. Sodium 130. Potassium 4.2. BUN 18. Creatinine 1.12. BNP 49. The patient was placed on a heparin drip and admitted to the hospital for further evaluation under the care of Dr. Bhagat. Consultations were placed to cardiology. 05/09/2018 Patient seen and examined while he was outside of the ICU walking in the hallway. Patient states he feel good today. Denies chest pain or pressure. Denies SOB. Patient underwent cardiac cath yesterday with two stents placed to the RCA. Patient tolerating PO intake. Vital signs have been stable. Patient anticipates he will be cleared for discharge tomorrow from cardiology standpoint. Objective - Vital Signs Vital signs: Vital Signs Temp 97.6 F 05/09/18 00:00 Pulse 71 05/09/18 01:00 Resp 18 05/09/18 00:00 BP 138/85 05/09/18 01:00 Pulse Ox 97 05/09/18 01:00 Intake & Output 05/08/18 05/09/18 05/09/18 18:59 06:59 18:59 Intake Total 743.6 800 Output Total 1350 750 Balance -606.4 50 Weight 97.3 kg Intake: IV 743.6 800 0.9 NACL 100 800 Output: Urine 1350 750 Other: Voiding Method Urinal Urinal # Voids 0 ABP, PAP, CO, CI - Last Documented Arterial Blood Pressure 144/75 - Exam GENERAL: This is a 47-year-old male in no apparent distress at the time of examination. Pleasant and cooperative. HEENT: Head is atraumatic, normocephalic. Pupils are equal, round, and reactive to light. Sclerae anicteric. Conjunctivae are clear. Mucus membranes of the mouth are moist. Neck is supple. RESPIRATORY: Clear to ausculation. No wheezes, rales, or rhonchi. No use of accessory muscles. Patient maintaining oxygen saturation greater than 92%. No chest wall tenderness is noted on palpation or with deep breathing. CARDIOVASCULAR: Regular rate and rhythm. S1 and S2 noted. No systolic or diastolic murmur auscultated. No JVD noted. No S3 or S4 noted. GASTROINTESTINAL: No distention noted. Abdomen soft and round. Normal active bowel sounds auscultated x 4 quadrants. No pain or tenderness noted upon palpation. INTEGUMENTARY: No cyanosis. No jaundice. No rashes noted. No cellulitis noted. EXTREMITIES: 2+ peripheral pulses. No evidence of peripheral edema. No calf tenderness noted. NEUROLOGIC: Cranial nerves II-XII intact. PSYCHIATRIC: Awake, alert, and oriented X 3. Appropriate affect. Intact judgement and insight. - Labs CBC & Chem 7: 05/08/18 04:23 05/08/18 04:23 Assessment and Plan Plan: ASSESSMENT: 1. Acute non-ST elevated myocardial infarction, s/p cardiac catherization with stent placement x 2 to RCA 2. Hypertension 3. History of TIA, 2015 4. Dyslipidemia 5. Nicotine dependence, patient is a current cigarette smoker and reports 1 to 1.5 PPD 6. Obesity: BMI 34.6 PLAN: Cardiology on consult. Appreciate recommendations and input Activity as tolerated Home meds as appropriate Monitor labs GI/DVT prophylaxis Monitor vital signs and address as appropriate Discharge planning: Patient to return home when stable Further recommendations pending patient's course Anticipate discharge home tomorrow if patient remains stable Nurse practitioner note has been reviewed by physician. Signing provider agrees with the documented findings, assessment, and plan of care.
[2018-05-09] MEDS: HYDROCHLOROTHIAZIDE 12.5 MG CAP PO SCH (11:44)
[2018-05-09] MEDS: FAMOTIDINE 20 MG TAB PO SCH ×2 (11:44→20:54)
[2018-05-09] MEDS: LOSARTAN 50 MG TAB PO SCH (11:44)
[2018-05-09] MEDS: NICOTINE 21MG/24HR PATCH TRANSDERM SCH (11:45)
--- NOTE | 2018-05-09 12:23 | PN ---
PROGRESS NOTE This is a 47-year-old gentleman who was admitted to hospital with non ST-segment elevation [place]. Underwent cardiac catheterization and angioplasty with stent placement of distal right coronary artery. This morning he is doing well and is free of symptoms. Denies chest pain or difficulty in breathing. He is on optimal medical therapy. On exam, vital signs are stable. There is no jugular venous distention. Chest exam reveals good air entry bilaterally. Heart exam reveals first and second heart sounds. No gallop. No murmur. Abdomen is soft. Exam of the extremities did not reveal any edema. Peripheral pulses are felt. Groin is free of bleeding, bruit, hematoma. Foot pulses are intact. ASSESSMENT: Acute non ST-segment elevation myocardial infarction, status post catheterization and angioplasty of right coronary artery. Patient is doing well. Will ambulate him outside in the hallway and we should be able to discharge him home tomorrow morning. MMODL / IJN: [id number] /
[2018-05-09] MEDS: CLOPIDOGREL 75 MG TAB PO SCH (12:35)
[2018-05-09 14:45] LABS: Anion Gap 11 mmol/L; Blood Urea Nitrogen 12 mg/dL (9-20); Calcium 8.8 mg/dL (8.4-10.2); Carbon Dioxide 22 mmol/L (22-30); Chloride 106 mmol/L (98-107); Glucose 82 mg/dL (74-99); Potassium 4.4 mmol/L (3.5-5.1); Sodium 139 mmol/L (137-145)
[2018-05-09 16:41] VITALS: TEMP 98.1
[2018-05-09 21:56] VITALS: RESP 16
[2018-05-10 06:24] LABS: Basophils # (A) 0.1 k/uL (0-0.2); Basophils % (A) 1 %; Eosinophils # (A) 0.2 k/uL (0-0.7); Eosinophils % (A) 2 %; HGB 15.2 gm/dL (13.0-17.5); Lymphocytes # (A) 2.7 k/uL (1.0-4.8); Lymphocytes % (A) 37 %; MCH 29.3 pg (25.0-35.0); MCHC 35.3 g/dL (31.0-37.0); MCV 83.1 fL (80.0-100.0); Mean Platelet Volume 6.1; Monocytes # (A) 0.5 k/uL (0-1.0); Monocytes % (A) 7 %; Neutrophils # (A) 3.6 k/uL (1.3-7.7); Neutrophils % (A) 50 %; Platelet Count 293 k/uL (150-450); RBC 5.17 m/uL (4.30-5.90); RDW 13.6 % (11.5-15.5); WBC 7.2 k/uL (3.8-10.6)
[2018-05-10] MEDS: LOSARTAN 50 MG TAB PO SCH (08:42)
[2018-05-10] MEDS: CLOPIDOGREL 75 MG TAB PO SCH (08:42)
[2018-05-10] MEDS: NICOTINE 21MG/24HR PATCH TRANSDERM SCH ×2 (08:42→08:47)
[2018-05-10] MEDS: FAMOTIDINE 20 MG TAB PO SCH (08:42)
[2018-05-10] MEDS: HYDROCHLOROTHIAZIDE 12.5 MG CAP PO SCH (08:42)
--- NOTE | 2018-05-10 10:48 | P.PN ---
Subjective Progress Note Date: 05/10/18 Principal diagnosis: This is a pleasant 47-year-old gentleman who presented to the hospital with a non-ST elevation myocardial infarction, underwent angioplasty and stent placement of the RCA. Patient was seen and examined this morning, denied any chest pain or difficulty in breathing and he's been up ambulating without any difficulty. At pressure 130/70 with a heart rate in the 60s, 98% on room air. Objective - Vital Signs Vital signs: Vital Signs Temp 98.1 F 05/09/18 20:00 Pulse 65 05/10/18 04:00 Resp 16 05/10/18 04:00 BP 131/76 05/10/18 04:00 Pulse Ox 98 05/10/18 04:00 Intake & Output 05/09/18 05/10/18 05/10/18 18:59 06:59 18:59 Intake Total 700 240 Balance 700 240 Weight 97.3 kg 102.6 kg Intake: Oral 700 240 Other: Voiding Method Toilet Urinal # Voids 3 1 1 # Bowel Movements 0 ABP, PAP, CO, CI - Last Documented Arterial Blood Pressure 144/75 - Exam PHYSICAL EXAMINATION: GENERAL: 47-year-old gentleman in no apparent distress at the time of my examination. HEENT: Head is atraumatic, normocephalic. Pupils equal, round. Sclera anicteric. Conjunctiva are clear. Mucous membranes of the mouth are moist. Neck is supple. There is no elevated jugular venous pressure.] bruit is heard. HEART EXAMINATION: Heart S1, S2 normal. No murmur or gallop heard. CHEST EXAMINATION: Lungs are clear to auscultation and precussion. No chest wall tenderness is noted on palpation or with deep breathing. ABDOMEN: Soft, nontender. Bowel sounds are heard. No organomegaly noted. EXTREMITIES: 2+ peripheral pulses with no evidence of peripheral edema and no calf tenderness noted. NEUROLOGIC patient is awake, alert and oriented ?-3. . - Labs CBC & Chem 7: 05/10/18 05:35 05/09/18 04:13 Assessment and Plan Plan: Assessment and plan #1 non-ST elevation myocardial infarction, status post angioplasty and stenting of the right coronary artery #2 hypertension #3 hyperlipidemia #4 history of prior TIA #5 nicotine dependence #6 obesity, BMI 34.6 Plan From cardiology's perspective, patient may be able to be discharged home today. We will make him a follow-up appointment in the office post discharge with Dr. Root. Discharge medications include Plavix 75 mg daily, Ecotrin 81 mg daily, losartan 150 mg daily, nicotine patch 21 mg daily, Lopressor 25 mg daily , sublingual nitroglycerin as needed for chest pain. DNP note has been reviewed, I agree with a documented findings and plan of care. Patient was seen and examined.
[2018-05-10 10:58] VITALS: BP 138/74; PULSE 80
[2018-05-10] MEDS ORDERED: ASPIRIN 81 MG PO SCH (11:00)
[2018-05-10] MEDS ORDERED: METOPROLOL TARTRATE 25 MG TAB PO SCH (11:00)
--- NOTE | 2018-05-10 11:38 | P.DS ---
Providers Date of admission: 05/07/18 19:50 Expected date of discharge: 05/10/18 Attending physician: Baldo Bhagat Consults: 05/07/18 19:50 Consult Physician Stat Consulting Provider: Gino Gutierrez Consult Reason/Comments: NSTEMI Do you want consulting provider notified?: Yes 05/08/18 13:21 Consult Physician Routine Consulting Provider: [facility] Consult Reason/Comments: Post Interventional patient Do you want consulting provider notified?: Already Contacted Primary care physician: [facility] Hospital Course: 47-year-old male who presented to the emergency room with a chief complaint of feeling "queasy". The patient reports his symptoms started on Monday. He states he had some epigastric discomfort and some tightness in his arm and shoulder. He reports nausea. Denies emesis. He states he had ate a large meal and attributed his symptoms to that. He states he was at work yesterday when he began to have the same feelings of queasiness. He also reports tightness in his back and neck. He once again denied any chest pain. He denied shortness of breath. He did have nausea again yesterday, but denied any episodes of emesis. Denies lightheadedness or dizziness. Denies fever or chills. The patient has a history of hypertension, GERD, and TIA in 2015. He is a current every day smoker and reports smoking between 1-1/2 packs per day. Chest x-ray completed in the emergency room was negative for acute process. EKG revealed sinus mechanism without ST elevation. Troponins were elevated 0.075, 0.144, and 1.200. White count 8.6. Hemoglobin 16.0. Platelet count 337. Sodium 130. Potassium 4.2. BUN 18. Creatinine 1.12. BNP 49. The patient was placed on a heparin drip and admitted to the hospital for further evaluation under the care of Dr. Bhagat. Consultations were placed to cardiology. The patient underwent cardiac cath on 05/08/2018 with two stents placed to the RCA. Patient has been feeling well since cardiac cath. Denies any further chest pain or pressure. Denies shortness of breath. Patient has been ambulating in the hallway. Tolerating PO intake. Vital signs have been stable. The patient has been cleared for discharge from a medical standpoint when cleared from cardiology. Smoking cessation was recommended. Discharge diagnosis: 1. Acute non-ST elevated myocardial infarction, s/p cardiac catherization with stent placement x 2 to RCA 2. Hypertension 3. History of TIA, 2014 4. Dyslipidemia 5. Nicotine dependence, patient is a current cigarette smoker and reports 1 to 1.5 PPD 6. Obesity: BMI 34.6 Nurse practitioner note has been reviewed by physician. Signing provider agrees with the documented findings, assessment, and plan of care. Patient Condition at Discharge: Stable Plan - Discharge Summary Discharge Rx Participant: Yes New Discharge Prescriptions: New Clopidogrel [Plavix] 75 mg PO DAILY #30 tab Hydrochlorothiazide [Hydrodiuril] 12.5 mg PO DAILY #30 cap Losartan [Cozaar] 150 mg PO DAILY #30 tab Nicotine 21Mg/24Hr Patch [Habitrol] 1 patch TRANSDERM DAILY #30 patch Nitroglycerin Sl Tabs [Nitrostat] 0.4 mg SUBLINGUAL Q5M PRN #25 tab PRN Reason: Chest Pain Continue Metoprolol Tartrate [Lopressor] 100 mg PO BID Simvastatin [Zocor] 20 mg PO DAILY Lansoprazole 15 mg PO DAILY Aspirin 325 mg PO DAILY Discontinued Olmesartan/Hydrochlorothiazide [Benicar Hct 40-12.5 mg Tablet] 1 tab PO DAILY Discharge Medication List Metoprolol Tartrate [Lopressor] 100 mg PO BID 04/10/15 [History] Aspirin 325 mg PO DAILY 01/30/17 [History] Lansoprazole 15 mg PO DAILY 01/30/17 [History] Simvastatin [Zocor] 20 mg PO DAILY 01/30/17 [History] Clopidogrel [Plavix] 75 mg PO DAILY #30 tab 05/10/18 [Rx] Hydrochlorothiazide [Hydrodiuril] 12.5 mg PO DAILY #30 cap 05/10/18 [Rx] Losartan [Cozaar] 150 mg PO DAILY #30 tab 05/10/18 [Rx] Nicotine 21Mg/24Hr Patch [Habitrol] 1 patch TRANSDERM DAILY #30 patch 05/10/18 [ Rx] Nitroglycerin Sl Tabs [Nitrostat] 0.4 mg SUBLINGUAL Q5M PRN #25 tab 05/10/18 [Rx ] Follow up Appointment(s)/Referral(s): Paulo Rowell MD [Primary Care Provider] - 05/21/18 1:45 pm (Monday) Ildefonso Root MD [STAFF PHYSICIAN] - 05/15/18 3:00 pm (Monday) Patient Instructions/Handouts: *[facility] - After Heart Catheterization - Ict Educator Instructions, Left Heart Catheterization (DC) Discharge Disposition: HOME SELF-CARE
== END 2018-05-10 12:01 | disposition home or self-care (01) | DRG 246 ==
LOC: EC 17:29 → 6SEL 19:50 → 6ICU 21:52 → 6SEL 05-09 18:45
PROVIDERS: ADMIT Family Medicine; ATTEND Family Medicine
PROC: 027035Z Dilation of Coronary Artery, One Artery with Two Drug-eluting Intraluminal Devices, Percutaneous Approach (ICD-10-PCS; principal; 2018-05-08 11:23)
PROC: 4A023N7 Measurement of Cardiac Sampling and Pressure, Left Heart, Percutaneous Approach (ICD-10-PCS; 2018-05-08 11:23)
PROC: B2111ZZ Fluoroscopy of Multiple Coronary Arteries using Low Osmolar Contrast (ICD-10-PCS; 2018-05-08 11:23)
DX: I21.4 Non-ST elevation (NSTEMI) myocardial infarction (principal); I25.42 Coronary artery dissection; E66.9 Obesity, unspecified; E78.1 Pure hyperglyceridemia; E78.5 Hyperlipidemia, unspecified; F17.210 Nicotine dependence, cigarettes, uncomplicated; I10 Essential (primary) hypertension; K21.9 Gastro-esophageal reflux disease without esophagitis; I25.10 Atherosclerotic heart disease of native coronary artery without angina pectoris; Z68.34 Body mass index [BMI] 34.0-34.9, adult; Z79.82 Long term (current) use of aspirin; Z79.899 Other long term (current) drug therapy; Z86.73 Personal history of transient ischemic attack (TIA), and cerebral infarction without residual deficits; Z83.3 Family history of diabetes mellitus; Z82.49 Family history of ischemic heart disease and other diseases of the circulatory system
CPT/HCPCS: 36415; 71046; 80048; 80053; 82550; 82553; 83880; 84484; 85025; 85610; 85730; 93005; 93306; 93458; 93799; 96365; 96366; 96376; 99285

== ENCOUNTER 2019-01-07 13:57 | Emergency (ER) | payer BC ==
[2019-01-07 14:55] LABS: Basophils # (A) 0.1 k/uL (0-0.2); Basophils % (A) 1 %; Eosinophils # (A) 0.2 k/uL (0-0.7); Eosinophils % (A) 3 %; HCT 45.5 % (39.0-53.0); HGB 15.5 gm/dL (13.0-17.5); Lymphocytes # (A) 2.6 k/uL (1.0-4.8); Lymphocytes % (A) 35 %; MCH 28.5 pg (25.0-35.0); MCHC 34.1 g/dL (31.0-37.0); MCV 83.7 fL (80.0-100.0); Monocytes # (A) 0.5 k/uL (0-1.0); Monocytes % (A) 6 %; Neutrophils # (A) 3.9 k/uL (1.3-7.7); Neutrophils % (A) 53 %; Platelet Count 333 k/uL (150-450); RBC 5.44 m/uL (4.30-5.90); RDW 13.2 % (11.5-15.5); WBC 7.4 k/uL (3.8-10.6)
--- NOTE | 2019-01-07 14:57 | ED ---
Chest Pain HPI - General Chief Complaint: Chest Pain Stated Complaint: Flutter in chest Time Seen by Provider: 01/07/19 14:19 Source: patient, RN notes reviewed Mode of arrival: ambulatory Limitations: no limitations - History of Present Illness Initial Comments: 48-year-old male presents emergency Department with chief complaint palpitations. Patient states that this started yesterday worse today. Patient states that he was well physical it's Be. Patient States She's Had This in the past. Patient Also Admits That He Had a Heart Attack Last April. He Had Stents Placed by Dr. Gray. Patient Denies Any Current Chest Pain or Chest Pressure. Patient Is Scheduled for Stress Echo Tomorrow. Patient Denies Any Current Headache, Dizziness, Nausea Vomiting. - Related Data Home Medications Medication Instructions Recorded Confirmed Lansoprazole 15 mg PO DAILY 01/30/17 01/07/19 Atorvastatin [Lipitor] 80 mg PO HS 01/07/19 01/07/19 Metoprolol Tartrate [Lopressor] 25 mg PO BID 01/07/19 01/07/19 Olmesartan/Hydrochlorothiazide 1 tab PO DAILY 01/07/19 01/07/19 [Benicar Hct 40-12.5 mg Tablet] Previous Rx's Medication Instructions Recorded Aspirin 81 mg PO DAILY #30 chew 05/10/18 Clopidogrel [Plavix] 75 mg PO DAILY #30 tab 05/10/18 Nicotine 21Mg/24Hr Patch [Habitrol] 1 patch TRANSDERM DAILY #30 patch 05/10/18 Nitroglycerin Sl Tabs [Nitrostat] 0.4 mg SUBLINGUAL Q5M PRN #25 tab 05/10/18 Allergies Allergy/AdvReac Type Severity Reaction Status Date / Time No Known Allergies Allergy Verified 01/07/19 15:16 Review of Systems ROS Statement: Those systems with pertinent positive or pertinent negative responses have been documented in the HPI. ROS Other: All systems not noted in ROS Statement are negative. EKG Findings - EKG Comments: EKG Findings:: EKG performed at 14:34 normal sinus rhythm with a rate of 96 [place] 158 QRS 84 QT/QTC 358/452 Past Medical History Past Medical History: CVA/TIA, GERD/Reflux, Hypertension, Myocardial Infarction ([place]) Additional Past Medical History / Comment(s): hypercholestremia History of Any Multi-Drug Resistant Organisms: None Reported Past Surgical History: Heart Catheterization With Stent Additional Past Surgical History / Comment(s): eye surgery, vasectomy Past Psychological History: No Psychological Hx Reported Smoking Status: Current every day smoker Past Alcohol Use History: Occasional Past Drug Use History: Marijuana - Past Family History Father Additional Family Medical History / Comment(s): from circulation issues at the age of 63 Mother Additional Family Medical History / Comment(s): from [place] at the age of 58 General Exam Limitations: no limitations Course Vital Signs 01/07/19 14:01 Temperature 98.4 F Pulse Rate 98 Respiratory 18 Rate Blood Pressure 156/84 O2 Sat by Pulse 97 Oximetry Chest Pain MDM - MDM 48-year-old male presented for palpitations. Patient has no chest pain or shortness breath no associated symptoms. Patient stopped his metoprolol today because he is scheduled for stress echo tomorrow. Patient did have a few PVCs which were noted. Patient has no current symptoms will be discharged. Disposition Clinical Impression: Palpitations Disposition: HOME SELF-CARE Condition: Stable Instructions (If sedation given, give patient instructions): Heart Palpitations (ED) Additional Instructions: Please return to the Emergency Department if symptoms worsen or any other concerns. Is patient prescribed a controlled substance at d/c from ED?: No Referrals: Paulo Rowell MD [Primary Care Provider] - 1-2 days Time of Disposition: 15:44
[2019-01-07 15:02] LABS: INR 0.9 (<1.2); Partial Thromboplastin Time 25.5 sec (22.0-30.0)
[2019-01-07 15:04] LABS: ALT 46 U/L (21-72); AST 28 U/L (17-59); Albumin 4.4 g/dL (3.5-5.0); Alkaline Phosphatase 88 U/L (38-126); Anion Gap 11 mmol/L; Blood Urea Nitrogen 13 mg/dL (9-20); Calcium 9.4 mg/dL (8.4-10.2); Carbon Dioxide 25 mmol/L (22-30); Chloride 104 mmol/L (98-107); Glucose 100 mg/dL (74-99); Lipase 84 U/L (23-300); Magnesium 1.6 mg/dL (1.6-2.3); Sodium 140 mmol/L (137-145); Total Bilirubin 0.5 mg/dL (0.2-1.3); Total Protein 7.3 g/dL (6.3-8.2)
--- NOTE | 2019-01-07 15:08 | XR ---
EXAMINATION TYPE: XR chest 2V DATE OF EXAM: 01/07/2019 COMPARISON: 05/07/2018 TECHNIQUE: PA and lateral views submitted. HISTORY: Chest pain FINDINGS: The lungs are clear and there is no pneumothorax, pleural effusion, or focal pneumonia. Degenerativ e change of the spine. Hyperinflation suggests COPD. IMPRESSION: 1. No acute process.
[2019-01-07 16:09] VITALS: BP 118/91; PULSE 82; RESP 19; TEMP 97.9
--- NOTE | 2019-01-09 00:56 | CDI ---
Dear Jonny Zhang DO: Please do addendum Physical Examination. Thank you, Dia Lomax, [employer]. If you have any questions, please contact [facility] at [phone]. [facility]
== END 2019-01-07 16:08 | disposition home or self-care (01) ==
LOC: EC 13:57
DX: R00.2 Palpitations (principal); I49.3 Ventricular premature depolarization; E78.00 Pure hypercholesterolemia, unspecified; I10 Essential (primary) hypertension; I25.2 Old myocardial infarction; K21.9 Gastro-esophageal reflux disease without esophagitis; F17.200 Nicotine dependence, unspecified, uncomplicated; Z79.899 Other long term (current) drug therapy; Z86.73 Personal history of transient ischemic attack (TIA), and cerebral infarction without residual deficits; Z95.5 Presence of coronary angioplasty implant and graft; Z82.49 Family history of ischemic heart disease and other diseases of the circulatory system
CPT/HCPCS: 36415; 71046; 80053; 83690; 83735; 83880; 84484; 85025; 85610; 85730; 93005; 99285

== ENCOUNTER → 2020-05-19 | Outpatient (CLI) | payer BC ==
--- NOTE | 2020-05-19 08:56 | XR ---
EXAM TYPE: LUMBAR SPINE X RAY SERIES COMPARISON: NONE HISTORY: Pain TECHNIQUE: Three facet arthropathy L4-5 and L5-S1. Vascular calcifications. Views are submitted. FINDINGS: Alignment is anatomic. The pedicles are intact. The transverse processes are intact. There is no s pondylolisthesis. Multilevel hypertrophic changes. IMPRESSION: 1. Advanced facet arthropathy L4-5 and L5-S1 consider follow-up MRI to assess for foraminal encroachm ent. 2. Multilevel hypertrophic spurring.
== END | disposition home or self-care (01) ==
LOC: RADXRMAIN 08:19
PROVIDERS: ATTEND Family Medicine
DX: M47.26 Other spondylosis with radiculopathy, lumbar region (principal); M47.27 Other spondylosis with radiculopathy, lumbosacral region
CPT/HCPCS: 72100

== ENCOUNTER 2020-05-20 08:03 | Emergency (ER) | payer BC ==
--- NOTE | 2020-05-20 08:28 | ED ---
Male Urogenital HPI - General Chief complaint: Urogenital Stated complaint: Groin pain Time Seen by Provider: 05/20/20 08:14 Source: patient, RN notes reviewed Mode of arrival: ambulatory Limitations: no limitations - History of Present Illness Initial comments: 49-year-old male present emergency from chief complaint of right groin pain. Patient states she's had some on-and-off symptoms for a while states since Monday as worsening pain along with swelling now. Patient states that when he stands up he no solid large lump. He denies any trauma denies any activity that exacerbated his symptoms. Denies dysuria, hematuria, diarrhea constipation patient denies any prior abdominal surgeries he does admit that he had access of his right groin for heart cath in the past. Patient states it's this was several years ago. Patient has meant that with certain movements pain is worsened. - Related Data Home Medications Medication Instructions Recorded Confirmed Lansoprazole 15 mg PO DAILY 01/30/17 01/07/19 Atorvastatin [Lipitor] 80 mg PO HS 01/07/19 01/07/19 Metoprolol Tartrate [Lopressor] 25 mg PO BID 01/07/19 01/07/19 Olmesartan/Hydrochlorothiazide 1 tab PO DAILY 01/07/19 01/07/19 [Benicar Hct 40-12.5 mg Tablet] Previous Rx's Medication Instructions Recorded Aspirin 81 mg PO DAILY #30 chew 05/10/18 Clopidogrel [Plavix] 75 mg PO DAILY #30 tab 05/10/18 Nicotine 21Mg/24Hr Patch [Habitrol] 1 patch TRANSDERM DAILY #30 patch 05/10/18 Nitroglycerin Sl Tabs [Nitrostat] 0.4 mg SUBLINGUAL Q5M PRN #25 tab 05/10/18 Allergies Allergy/AdvReac Type Severity Reaction Status Date / Time No Known Allergies Allergy Verified 05/20/20 12:22 Review of Systems ROS Statement: Those systems with pertinent positive or pertinent negative responses have been documented in the HPI. ROS Other: All systems not noted in ROS Statement are negative. Past Medical History Past Medical History: CVA/TIA, GERD/Reflux, Hypertension, Myocardial Infarction ([place]) Additional Past Medical History / Comment(s): hypercholestremia History of Any Multi-Drug Resistant Organisms: None Reported Past Surgical History: Heart Catheterization With Stent Additional Past Surgical History / Comment(s): eye surgery, vasectomy Past Psychological History: No Psychological Hx Reported Smoking Status: Current every day smoker Past Alcohol Use History: Occasional Past Drug Use History: Marijuana - Past Family History Father Additional Family Medical History / Comment(s): from circulation issues at the age of 63 Mother Additional Family Medical History / Comment(s): from [place] at the age of 58 General Exam Limitations: no limitations General appearance: alert, in no apparent distress Head exam: Present: atraumatic, normocephalic, normal inspection Respiratory exam: Present: normal lung sounds bilaterally. Absent: respiratory distress, wheezes, rales, rhonchi, stridor Cardiovascular Exam: Present: regular rate, normal rhythm, normal heart sounds. Absent: systolic murmur, diastolic murmur, rubs, gallop, clicks GI/Abdominal exam: Present: soft, normal bowel sounds. Absent: distended, tenderness, guarding, rebound, rigid exam: Present: other (There is tenderness and mild swelling to the right groin noted, no erythema no discoloration no scrotal swelling) Back exam: Absent: CVA tenderness (R), CVA tenderness (L) Neurological exam: Present: alert, oriented X3 Skin exam: Present: warm, dry, intact, normal color. Absent: rash Course Vital Signs 05/20/20 08:04 Temperature 97.9 F Pulse Rate 87 Respiratory 18 Rate Blood Pressure 144/88 O2 Sat by Pulse 96 Oximetry Medical Decision Making - Medical Decision Making CT REVEALED EVIDENCE OF INGUINAL HERNIA RIGHT AND LEFT. PATIENT WILL FOLLOW-UP WITH DR. NAIK. WE DISCUSSED NO HEAVY LIFTING CLOSE RETURN PARAMETERS. Disposition Clinical Impression: Inguinal hernia Disposition: HOME SELF-CARE Condition: Stable Instructions (If sedation given, give patient instructions): Inguinal Hernia (ED) Additional Instructions: Please return to the Emergency Department if symptoms worsen or any other concerns. Is patient prescribed a controlled substance at d/c from ED?: No Referrals: Paulo Rowell MD [Primary Care Provider] - 1-2 days Nissa West MD [STAFF PHYSICIAN] - 1-2 days
--- NOTE | 2020-05-20 09:21 | US ---
EXAMINATION TYPE: US groin RT DATE OF EXAM: 05/20/2020 COMPARISON: NONE CLINICAL HISTORY: Groin pain. Right groin pain. Patient states he has had discomfort on right groin for a while and sometimes feels a bulge. Pain increased this morning. Area of pain scanned. Possible right inguinal hernia visualized with bowel seen. Josee arana IMPRESSION: 1. Findings are suspicious for a right inguinal hernia. CT scan follow-up recommended.
--- NOTE | 2020-05-20 13:20 | CT ---
EXAMINATION TYPE: CT abdomen pelvis wo con DATE OF EXAM: 05/20/2020 COMPARISON: None INDICATION: Rt groin pain DLP: 1137.3 mGycm, Automated exposure control for dose reduction was used. CONTRAST: 0 mL of Isovue 300. Study performed without Oral Contrast TECHNIQUE: Axial images were obtained from above the diaphragm to the pubic rami in the axial plane a t 5 mm thick sections. Reconstructed images are reviewed on the computer in the coronal plane. FINDINGS: Limited CT sections are obtained the lung bases. The lung bases are clear. CT ABDOMEN: Liver: Normal Spleen: Normal Pancreas: Normal Adrenal glands: The adrenal glands are normal. Gallbladder: Normal Kidneys: No masses are evident. No hydronephrosis is present. No cysts are present. There is a 0.3 cm calcification within the left renal pelvis. No hydronephrosis is evident. No [place] ureter is evid ent. 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 Aorta: Vascular calcification is within the aorta. Inferior vena cava: Normal. CT PELVIS: Bilateral inguinal hernias are present larger on the left than the right. No loops of luis eduardo l are involved. Loops of bowel within the abdomen and pelvis are normal. The study is without oral contrast limit ing bowel evaluation. Appendix: Normal as visualized. Urinary bladder: Normal. Genitourinary structures: Prostate is normal. Osseous structures: No suspicious lytic or sclerotic lesions. Preliminary report was provided. IMPRESSIONS: 1. Nonobstructing 0.3 cm left renal pelvic stone. 2. Minimal to small bilateral inguinal hernias containing mesenteric fat.
[2020-05-22 09:18] VITALS: BP 144/88; PULSE 87; RESP 18; TEMP 97.9
== END 2020-05-20 15:35 | disposition home or self-care (01) ==
LOC: EC 08:03
DX: K40.20 Bilateral inguinal hernia, without obstruction or gangrene, not specified as recurrent (principal); I10 Essential (primary) hypertension; I25.2 Old myocardial infarction; K21.9 Gastro-esophageal reflux disease without esophagitis; F17.200 Nicotine dependence, unspecified, uncomplicated; Z79.899 Other long term (current) drug therapy; Z86.73 Personal history of transient ischemic attack (TIA), and cerebral infarction without residual deficits; Z95.5 Presence of coronary angioplasty implant and graft
CPT/HCPCS: 74176; 99283

== ENCOUNTER 2020-07-17 09:31 | Day surgery (SDC) | payer BC ==
[2020-07-15 10:21] VITALS: BMI 37.1
[~2020-07-17 09:31] MED LIST: DEXAMETHASONE SOD PHOSPHATE 10 MG/ML 1 ML VIAL IV ONE; HEPARIN SODIUM,PORCINE 5,000 UNIT/ML 1 ML VIAL SQ ONE; HYDROmorphone 0.5 MG/0.5 ML SYRINGE IVP PRN; LACTATED RINGERS 1,000 ML IV SCH; LIDOCAINE 1% (10MG/ML) FOR IV START INTRADERMA PRN; MIDAZOLAM 2 MG/2 ML VIAL IV PRN; ONDANSETRON 4 MG/2 ML VIAL IVP ONE; fentaNYL (PF) 50 MCG/ML 2 ML AMP IVP PRN
[2020-07-17 10:26] LABS: HCT 46.9 % (39.0-53.0); HGB 16.3 gm/dL (13.0-17.5); MCH 29.3 pg (25.0-35.0); MCHC 34.7 g/dL (31.0-37.0); MCV 84.4 fL (80.0-100.0); Mean Platelet Volume 6.9; Platelet Count 338 k/uL (150-450); RBC 5.56 m/uL (4.30-5.90); RDW 13.2 % (11.5-15.5); WBC 7.1 k/uL (3.8-10.6)
[2020-07-17] MEDS ORDERED: ACETAMINOPHEN TAB 500 MG TAB ONE (10:30)
[2020-07-17] MEDS ORDERED: TAMSULOSIN 0.4 MG CAP.ER.24H PO STA (10:31)
[2020-07-17] MEDS ORDERED: ACETAMINOPHEN TAB 500 MG TAB PO STA (10:31)
[2020-07-17] MEDS ORDERED: GABAPENTIN 300 MG CAP PO STA (10:31)
--- NOTE | 2020-07-17 10:31 | P.GSHP ---
History of Present Illness H&P Date: 07/17/20 CHIEF COMPLAINT: Inguinal hernia, bilateral HISTORY OF PRESENT ILLNESS: The patient is a 50-year-old male who presents with a history of swelling and pain along the groins. He's noted increased swelling including pain of the area. Now he presents for repair of his inguinal hernia. PAST MEDICAL HISTORY: Please see list. PAST SURGICAL HISTORY: Please see list. MEDICATIONS: Please see list. ALLERGIES: Please see list. SOCIAL HISTORY: No illicit drug use FAMILY HISTORY: No reports of Crohn disease or ulcerative colitis. REVIEW OF ORGAN SYSTEMS: CONSTITUTIONAL: No reports of fevers or chills. No reports of weight loss despite prior attempts. GI: Denies any blood in stools or constipation. PHYSICAL EXAM: VITAL SIGNS: Stable GENERAL: Well-developed pleasant male in no acute distress. HEENT: No scleral icterus. Extraocular movements grossly intact. Moist buccal mucosa. NECK: Supple without lymphadenopathy. CHEST: Unlabored respirations. Equal bilateral excursions. CARDIOVASCULAR: Regular rate and rhythm. Distal 2+ pulses. ABDOMEN: Soft, nondistended. No peritoneal signs. Palpable defect of the groin MUSCULOSKELETAL: No clubbing, cyanosis, or edema. ASSESSMENT: 1. Inguinal hernia, bilateral PLAN: 1. Recommend proceeding with a robotic inguinal repair with mesh with bilateral approach. 2. Benefits and risks of surgical intervention was discussed including possibility of open technique. 3. DVT prophylaxis. 4. Antibiotic prophylaxis. Past Medical History Past Medical History: CVA/TIA, GERD/Reflux, Hyperlipidemia, Hypertension, Myocardial Infarction ([place]), Sleep Apnea/CPAP/BIPAP Additional Past Medical History / Comment(s): hypercholestremia Last Myocardial Infarction Date:: 05/2018 History of Any Multi-Drug Resistant Organisms: None Reported Past Surgical History: Heart Catheterization With Stent Additional Past Surgical History / Comment(s): eye surgery, vasectomy. stent x2 Past Anesthesia/Blood Transfusion Reactions: Previous Problems w/ Anesthesia Additional Past Anesthesia/Blood Transfusion Reaction / Comment(s): pt states stopped breathing during egd oxygen applied resolved Date of Last Stent Placement:: 05/2018 Smoking Status: Current every day smoker - Past Family History Father Additional Family Medical History / Comment(s): from circulation issues at the age of 63 Mother Family Medical History: Cancer Additional Family Medical History / Comment(s): from [place] at the age of 58 Medications and Allergies Home Medications Medication Instructions Recorded Confirmed Type Atorvastatin [Lipitor] 80 mg PO HS 01/07/19 07/15/20 History Metoprolol Tartrate [Lopressor] 25 mg PO BID@1200,2100 01/07/19 07/15/20 History Olmesartan/Hydrochlorothiazide 1 tab PO W/LUNCH 01/07/19 07/15/20 History [Benicar Hct 40-12.5 mg Tablet] Aspirin 81 mg PO W/LUNCH 05/20/20 07/15/20 History Lansoprazole [Prevacid] 15 mg PO W/LUNCH 05/20/20 07/15/20 History Allergies Allergy/AdvReac Type Severity Reaction Status Date / Time No Known Allergies Allergy Verified 07/17/20 09:52 Results - Labs 07/17/20 10:05
[2020-07-17] MEDS ORDERED: fentaNYL (PF) 50 MCG/ML 2 ML AMP IVP ONE (11:05)
--- NOTE | 2020-07-17 11:32 | P.ANPRN ---
Procedure Note - Anesthesia - Nerve Block Performed Bilateral Transversus Abdominis Single Time Out Performed: Yes Date of Procedure: 07/17/20 Procedure Start Time: :04 Procedure Stop Time: :14 Location of Patient: PreOp Indication: Requested by Surgeon Specifically requested for management of pain by DrArron: Nissa West Sedation Type: Sedate with meaningful contact maintained Preparation: Sterile Prep Position: Supine Needle Types: Pajunk Needle Gauge: 20 Ultrasound used to visualize needle placement: Yes Ultrasound used to observe medication spread: Yes Injectate: 0.5% Ropivacaine (see comment for volume) (20 ml plus Dexamethason 4 mg per side) Blood Aspirated: No Pain Paresthesia on Injection Noted: No Resistance on Injection: Normal Image Stored and Saved: Yes Events: Uneventful and Well Tolerated
[2020-07-17] MEDS ORDERED: DEXAMETHASONE SOD PHOSPHATE 4 MG/ML 1 ML VIAL ONE (12:26)
[2020-07-17] MEDS ORDERED: GLYCOPYRROLATE 0.2 MG/ML 2 ML VIAL ONE (12:26)
[2020-07-17] MEDS ORDERED: NEOSTIGMINE 1 MG/ML 10 ML VIAL ONE (12:26)
[2020-07-17] MEDS ORDERED: MIDAZOLAM 2 MG/2 ML VIAL ONE (12:26)
[2020-07-17] MEDS ORDERED: ROCURONIUM BROMIDE 10 MG/ML 5 ML VIAL IV ONE (12:26)
[2020-07-17] MEDS ORDERED: SUCCINYLCHOLINE CHLORIDE 100 MG/5 ML SYR IV ONE (12:26)
[2020-07-17] MEDS ORDERED: LIDOCAINE 1% INJ 10MG/ML (20 ML MDV) ONE (12:26)
[2020-07-17] MEDS ORDERED: ROPIVACAINE 5 MG/ML 30 ML VIAL ONE (12:26)
[2020-07-17] MEDS ORDERED: PROPOFOL 10 MG/ML 20 ML VIAL IV ONE (12:26)
[2020-07-17] MEDS ORDERED: fentaNYL (PF) 50 MCG/ML 2 ML AMP ONE (12:26)
[2020-07-17] MEDS ORDERED: BUPIVACAINE (PF) 0.25% 30 ML VIAL SQ ONE (12:51)
[2020-07-17 13:48] VITALS: TEMP 98.1
--- NOTE | 2020-07-17 13:50 | P.OP ---
Date of Procedure: 07/17/20 Description of Procedure: SURGEON: NISSA WEST MD PREOPERATIVE DIAGNOSES: 1. Bilateral groin pain 2. Morbid obesity due to excess calories, BMI 37.9 3. Hypertensive heart disease 4. Gastroesophageal reflux disease 5. Hyperlipidemia 6. History of cerebrovascular accident 7. History of myocardial infarction 8. Obstructive sleep apnea 9. Tobacco abuse disorder 10. History of cardiac catheterization POSTOPERATIVE DIAGNOSES: 1. Right inguinal hernia 2. Morbid obesity due to excess calories, BMI 37.9 3. Hypertensive heart disease 4. Gastroesophageal reflux disease 5. Hyperlipidemia 6. History of cerebrovascular accident 7. History of myocardial infarction 8. Obstructive sleep apnea 9. Tobacco abuse disorder 10. History of cardiac catheterization OPERATION: 1. Robotic-assisted right groin exploration 2. Robotic-assisted laparoscopic right inguinal hernia repair without mesh Anesthesia: GETA, local Estimated Blood Loss (ml): 5 Pathology: none sent Condition: stable Disposition: same day COMPLICATIONS: None. Operative Findings: 1. No inguinal hernia on the left side 2. Mild weakness and defect along the right groin with right groin exploration for lipoma. 3. Peritoneum closed primarily without mesh INDICATIONS: The patient is a 50-year-old male who presents with history of bilateral groin pain. Now he presents for surgical intervention. Laparoscopic versus open and robotic approaches were discussed. Benefits and risks including bleeding, infection and chronic groin pain were reviewed. Placement of mesh was also described. Informed consent was obtained. DESCRIPTION: The patient was brought to the operating room and initially laid in supine position. After general induction, the abdomen had been prepped and draped in standard sterile fashion. Ioban draping was also placed. Prior to incision, a timeout protocol was confirmed with surgical team regarding patient's name including procedures to be performed and location along the left groin. Initial positioning for the robotic assisted ports were selected whereby 20 cm superior to the target anatomy, 0 degree 5 mm laparoscopic trocar entry was performed at the left upper quadrant. The abdomen was insufflated to 15 mmHg which was tolerated well. Diagnostic laparoscopy demonstrated no hernias to the left groin. A small weakness was identified at the indirect inguinal area of the right groin. The [employer] Xi robot was primed, draped, prepared for docking along the left side of the patient. I then went to the [employer] console. The executive assistant was at bedside for exchange of the robot arms and equipment. Along the weakness of the right indirect inguinal area, the peritoneum was scored. The right groin was explored without findings of a large lipoma. The peritoneal defect was oversewn using nonabsorbable 2-0 VLOC x 9-inch length sutures. Intraoperative films were obtained. The robot was undocked from the patient's bedside. I then rescrubbed into the case. Insufflation was released from the abdominal cavity and all instruments were removed from the abdominal cavity. The rest of incisions were reapproximated using 4-0 Monocryl in a running subcuticular fashion. Local anesthetic was placed along the incision including for a groin block. Incisions were cleansed using dilute hydrogen peroxide. Exofin was applied to the skin. At the end of the procedure, the needle, sponge and instrument counts had been verified correct by the registered dietetic technician. The patient had tolerated the procedure well and was taken to the postanesthesia care unit in stable condition. Plan - Discharge Summary Discharge Rx Participant: No New Discharge Prescriptions: New Ibuprofen [Motrin] 600 mg PO Q8HR PRN #30 tab PRN Reason: Pain Acetaminophen Tab [Tylenol Tab] 1,000 mg PO Q6HR PRN #30 tablet Continue Metoprolol Tartrate [Lopressor] 25 mg PO BID@1200,2100 Olmesartan/Hydrochlorothiazide [Benicar Hct 40-12.5 mg Tablet] 1 tab PO W/LUNCH Atorvastatin [Lipitor] 80 mg PO HS Lansoprazole [Prevacid] 15 mg PO W/LUNCH Aspirin 81 mg PO W/LUNCH Discharge Medication List Atorvastatin [Lipitor] 80 mg PO HS 01/07/19 [History] Metoprolol Tartrate [Lopressor] 25 mg PO BID@1200,2100 01/07/19 [History] Olmesartan/Hydrochlorothiazide [Benicar Hct 40-12.5 mg Tablet] 1 tab PO W/LUNCH 01/07/19 [History] Aspirin 81 mg PO W/LUNCH 05/20/20 [History] Lansoprazole [Prevacid] 15 mg PO W/LUNCH 05/20/20 [History] Acetaminophen Tab [Tylenol Tab] 1,000 mg PO Q6HR PRN #30 tablet 07/17/20 [Rx] Ibuprofen [Motrin] 600 mg PO Q8HR PRN #30 tab 07/17/20 [Rx] Follow up Appointment(s)/Referral(s): Nissa West MD [STAFF PHYSICIAN] - 07/28/20 (YOU WILL NEED TO CALL TO SCHEDULE YOUR FOLLOW UP APPOINTMENT UNLESS YOU ALREADY HAVE ONE MADE) Paulo Arce MD [Primary Care Provider] - 1 Week (YOU NEED TO CALL DR. ARCE'S OFFICE TO RESCHEDULE YOUR PHYSICAL AND TO SCHEDULE FOR A SLEEP STUDY TEST) Patient Instructions/Handouts: *[facility] - Managing Your Pain After Surgery Without Opioids, *[facility] - (Anesthesia) Discharge Instructions Outpatient Surgery, Laparoscopic Herniorrhaphy (IP) Activity/Diet/Wound Care/Special Instructions: No lifting over 10 pounds in 2 weeks until Jul 31 May shower. No bath tub soaks for two weeks until Jul 31 Diet as tolerated. Use Tylenol and ibuprofen or Aleve scheduled for the next 24-48 hours for best pain relief. Use ice along incisions for the today to prevent swelling. Discharge Disposition: HOME SELF-CARE
[2020-07-17 15:33] VITALS: RESP 18
[2020-07-17 16:15] VITALS: BP 149/87; PULSE 93
== END 2020-07-17 16:18 | disposition home or self-care (01) ==
LOC: OR 09:31
PROVIDERS: ATTEND Surgery Plastic and Reconstructive Surgery
DX: K40.90 Unilateral inguinal hernia, without obstruction or gangrene, not specified as recurrent (principal); R10.32 Left lower quadrant pain; R19.04 Left lower quadrant abdominal swelling, mass and lump; I25.10 Atherosclerotic heart disease of native coronary artery without angina pectoris; E78.2 Mixed hyperlipidemia; I11.9 Hypertensive heart disease without heart failure; E66.01 Morbid (severe) obesity due to excess calories; F17.210 Nicotine dependence, cigarettes, uncomplicated; K21.9 Gastro-esophageal reflux disease without esophagitis; I25.2 Old myocardial infarction; G47.33 Obstructive sleep apnea (adult) (pediatric); Z95.5 Presence of coronary angioplasty implant and graft; Z79.899 Other long term (current) drug therapy; Z79.82 Long term (current) use of aspirin; Z86.73 Personal history of transient ischemic attack (TIA), and cerebral infarction without residual deficits; Z99.89 Dependence on other enabling machines and devices; Z98.890 Other specified postprocedural states; Z98.52 Vasectomy status; Z91.89 Other specified personal risk factors, not elsewhere classified; Z97.2 Presence of dental prosthetic device (complete) (partial); Z82.49 Family history of ischemic heart disease and other diseases of the circulatory system; Z80.9 Family history of malignant neoplasm, unspecified; Z68.37 Body mass index [BMI] 37.0-37.9, adult
CPT/HCPCS: 64488; 85027; 49650; J2250; J1100 ×2; J2710; J0690; J2405; J2001; J3010; J2795; J0330; J2704

== ENCOUNTER 2021-01-05 09:29 | Emergency (ER) | payer BC ==
[2021-01-05 09:36] VITALS: RESP 18
--- NOTE | 2021-01-05 10:11 | ED ---
Abdominal Pain HPI - General Chief Complaint: Abdominal Pain Stated Complaint: Male Time Seen by Provider: 01/05/21 10:02 Source: patient Mode of arrival: ambulatory Limitations: no limitations - History of Present Illness Initial Comments: 50-year-old male with history of a inguinal hernia presents to emergency department with a chief complaint of groin pain. Patient reports bilateral hernia repair 8 months ago without mesh placement. Patient reports over last several days he developed increased pain in bilateral inguinal region. He also reports a "lump" on the right inguinal region which was present prior to the surgery but not after. He denies any nausea or vomiting diarrhea or constipation. Reports the pain is sharp 7/10. Pain is exacerbated when lifting heavy. 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 Denies any testicular swelling, erythema, enlargement or penile discharge. - Related Data Home Medications Medication Instructions Recorded Confirmed Atorvastatin [Lipitor] 80 mg PO HS 01/07/19 01/05/21 Metoprolol Tartrate [Lopressor] 100 mg PO BID@1200,2100 01/07/19 01/05/21 Olmesartan/Hydrochlorothiazide 1 tab PO DAILY 01/07/19 01/05/21 [Benicar Hct 40-12.5 mg Tablet] Aspirin 81 mg PO DAILY 05/20/20 01/05/21 Lansoprazole [Prevacid] 15 mg PO DAILY 05/20/20 01/05/21 Allergies Allergy/AdvReac Type Severity Reaction Status Date / Time No Known Allergies Allergy Verified 01/05/21 10:27 Review of Systems ROS Statement: Those systems with pertinent positive or pertinent negative responses have been documented in the HPI. ROS Other: All systems not noted in ROS Statement are negative. Past Medical History Past Medical History: CVA/TIA, GERD/Reflux, Hyperlipidemia, Hypertension, Myocardial Infarction ([place]), Sleep Apnea/CPAP/BIPAP Additional Past Medical History / Comment(s): hypercholestremia Last Myocardial Infarction Date:: 05/2018 History of Any Multi-Drug Resistant Organisms: None Reported Past Surgical History: Heart Catheterization With Stent, Hernia Repair Additional Past Surgical History / Comment(s): eye surgery, vasectomy. stent x2 Past Anesthesia/Blood Transfusion Reactions: Previous Problems w/ Anesthesia Additional Past Anesthesia/Blood Transfusion Reaction / Comment(s): pt states stopped breathing during egd oxygen applied resolved Date of Last Stent Placement:: 05/2018 Past Psychological History: No Psychological Hx Reported Smoking Status: Current every day smoker Past Alcohol Use History: Occasional Past Drug Use History: Marijuana - Past Family History Father Additional Family Medical History / Comment(s): from circulation issues at the age of 63 Mother Family Medical History: Cancer Additional Family Medical History / Comment(s): from [place] at the age of 58 General Exam Limitations: no limitations General appearance: alert, in no apparent distress Head exam: Present: atraumatic, normocephalic, normal inspection Eye exam: Present: normal appearance, PERRL, EOMI Pupils: Present: normal accommodation ENT exam: Present: normal exam, normal oropharynx, mucous membranes moist Neck exam: Present: normal inspection, full ROM. Absent: tenderness Respiratory exam: Present: normal lung sounds bilaterally. Absent: respiratory distress Cardiovascular Exam: Present: regular rate, normal rhythm, normal heart sounds GI/Abdominal exam: Present: soft, tenderness (Mild tenderness in bilateral groin regions.), normal bowel sounds, hernia (Small protrusion noted in the right internal region.). Absent: distended, guarding, rebound, rigid Extremities exam: Present: normal inspection, full ROM, normal capillary refill. Absent: tenderness Back exam: Present: normal inspection, full ROM. Absent: tenderness Neurological exam: Present: alert, oriented X3, normal gait Psychiatric exam: Present: normal affect, normal mood Skin exam: Present: warm, dry, intact, normal color Course Vital Signs 01/05/21 09:30 Temperature 97.5 F L Pulse Rate 71 Respiratory 18 Rate Blood Pressure 141/94 O2 Sat by Pulse 99 Oximetry Medical Decision Making - Medical Decision Making 50 yo Male resenting to the emergency department with a chief complaint of groin pain. On physical examination, patient has scarring in bilateral inguinal region from the hernia repair. Very small protrusion distal to the right inguinal scar. No testicular swelling erythema or tenderness. CBC CMP unremarkable. CT of abdomen and pelvis performed shows no signs of a hernia. However, there is an 11 mm lesion on the left kidney that radiology does recommend a follow-up. Patient was advised to follow-up with a general surgeon and a urologist. Return parameters discussed with patient was understanding and agreeable. Case discussed with Dr. Flores. - Lab Data Result diagrams: 01/05/21 10:20 01/05/21 10:20 Lab Results 01/05/21 01/05/21 01/05/21 Range/Units 10:20 10:20 10:20 WBC 7.8 (3.8-10.6) k/uL RBC 5.64 (4.30-5.90) m/uL Hgb 16.5 (13.0-17.5) gm/dL Hct 47.8 (39.0-53.0) % MCV 84.7 (80.0-100.0) fL MCH 29.3 (25.0-35.0) pg MCHC 34.6 (31.0-37.0) g/dL RDW 12.7 (11.5-15.5) % Plt Count 317 (150-450) k/uL MPV 6.7 Neutrophils % 55 % Lymphocytes % 33 % Monocytes % 7 % Eosinophils % 3 % Basophils % 1 % Neutrophils # 4.2 (1.3-7.7) k/uL Lymphocytes # 2.6 (1.0-4.8) k/uL Monocytes # 0.5 (0-1.0) k/uL Eosinophils # 0.3 (0-0.7) k/uL Basophils # 0.1 (0-0.2) k/uL Sodium 138 (137-145) mmol/L Potassium 4.7 (3.5-5.1) mmol/L Chloride 101 (98-107) mmol/L Carbon Dioxide 28 (22-30) mmol/L Anion Gap 9 mmol/L BUN 13 (9-20) mg/dL Creatinine 0.97 (0.66-1.25) mg/dL Est GFR (CKD-EPI)AfAm >90 (>60 ml/min/1.73 sqM) Est GFR (CKD-EPI)NonAf >90 (>60 ml/min/1.73 sqM) Glucose 127 H (74-99) mg/dL Plasma Lactic Acid Aidan (0.7-2.0) mmol/L Calcium 9.9 (8.4-10.2) mg/dL Total Bilirubin 0.8 (0.2-1.3) mg/dL AST 30 (17-59) U/L ALT 40 (4-49) U/L Alkaline Phosphatase 76 (38-126) U/L Total Protein 7.5 (6.3-8.2) g/dL Albumin 4.4 (3.5-5.0) g/dL Urine Color Yellow Urine Appearance Clear (Clear) Urine pH 6.0 (5.0-8.0) Ur Specific [place] 1.017 (1.001-1.035) Urine Protein Negative (Negative) Urine Glucose (UA) Negative (Negative) Urine Ketones Negative (Negative) Urine Blood Negative (Negative) Urine Nitrite Negative (Negative) Urine Bilirubin Negative (Negative) Urine Urobilinogen <2.0 (<2.0) mg/dL Ur Leukocyte Esterase Negative (Negative) 01/05/21 Range/Units 10:20 WBC (3.8-10.6) k/uL RBC (4.30-5.90) m/uL Hgb (13.0-17.5) gm/dL Hct (39.0-53.0) % MCV (80.0-100.0) fL MCH (25.0-35.0) pg MCHC (31.0-37.0) g/dL RDW (11.5-15.5) % Plt Count (150-450) k/uL MPV Neutrophils % % Lymphocytes % % Monocytes % % Eosinophils % % Basophils % % Neutrophils # (1.3-7.7) k/uL Lymphocytes # (1.0-4.8) k/uL Monocytes # (0-1.0) k/uL Eosinophils # (0-0.7) k/uL Basophils # (0-0.2) k/uL Sodium (137-145) mmol/L Potassium (3.5-5.1) mmol/L Chloride (98-107) mmol/L Carbon Dioxide (22-30) mmol/L Anion Gap mmol/L BUN (9-20) mg/dL Creatinine (0.66-1.25) mg/dL Est GFR (CKD-EPI)AfAm (>60 ml/min/1.73 sqM) Est GFR (CKD-EPI)NonAf (>60 ml/min/1.73 sqM) Glucose (74-99) mg/dL Plasma Lactic Acid Aidan 1.5 (0.7-2.0) mmol/L Calcium (8.4-10.2) mg/dL Total Bilirubin (0.2-1.3) mg/dL AST (17-59) U/L ALT (4-49) U/L Alkaline Phosphatase (38-126) U/L Total Protein (6.3-8.2) g/dL Albumin (3.5-5.0) g/dL Urine Color Urine Appearance (Clear) Urine pH (5.0-8.0) Ur Specific [place] (1.001-1.035) Urine Protein (Negative) Urine Glucose (UA) (Negative) Urine Ketones (Negative) Urine Blood (Negative) Urine Nitrite (Negative) Urine Bilirubin (Negative) Urine Urobilinogen (<2.0) mg/dL Ur Leukocyte Esterase (Negative) Disposition Clinical Impression: Groin pain, Kidney lesion Disposition: HOME SELF-CARE Condition: Stable Instructions (If sedation given, give patient instructions): Inguinal Hernia (ED) Additional Instructions: Follow-up with general surgery and urology.Please return to the Emergency Department if symptoms worsen or any other concerns. Is patient prescribed a controlled substance at d/c from ED?: No Referrals: Paulo Rowell MD [Primary Care Provider] - 1-2 days Jose Jeffrey MD [STAFF PHYSICIAN] - 1-2 days Time of Disposition: 11:43
[2021-01-05 10:31] LABS: Basophils # (A) 0.1 k/uL (0-0.2); Basophils % (A) 1 %; Eosinophils # (A) 0.3 k/uL (0-0.7); Eosinophils % (A) 3 %; HCT 47.8 % (39.0-53.0); HGB 16.5 gm/dL (13.0-17.5); Lymphocytes # (A) 2.6 k/uL (1.0-4.8); Lymphocytes % (A) 33 %; MCH 29.3 pg (25.0-35.0); MCHC 34.6 g/dL (31.0-37.0); MCV 84.7 fL (80.0-100.0); Mean Platelet Volume 6.7; Monocytes # (A) 0.5 k/uL (0-1.0); Monocytes % (A) 7 %; Neutrophils # (A) 4.2 k/uL (1.3-7.7); Neutrophils % (A) 55 %; Platelet Count 317 k/uL (150-450); RBC 5.64 m/uL (4.30-5.90); RDW 12.7 % (11.5-15.5); WBC 7.8 k/uL (3.8-10.6)
[2021-01-05 10:36] LABS: Appearance,Urine Clear (Clear); Bilirubin,Urine Negative (Negative); Blood,Urine Negative (Negative); Color,Urine Yellow; Glucose,Urine (UA) Negative (Negative); Ketones,Urine Negative (Negative); Leukocyte Esterase,Urine Negative (Negative); Nitrite,Urine Negative (Negative); Protein,Urine Negative (Negative); Specific Gravity,Urine 1.017 (1.001-1.035); Urobilinogen,Urine <2.0 mg/dL (<2.0)
[2021-01-05 10:39] LABS: ALT 40 U/L (4-49); AST 30 U/L (17-59); African American GFR (CKD) >90 (>60 ml/min/1.73 sqM); Albumin 4.4 g/dL (3.5-5.0); Alkaline Phosphatase 76 U/L (38-126); Anion Gap 9 mmol/L; Blood Urea Nitrogen 13 mg/dL (9-20); Calcium 9.9 mg/dL (8.4-10.2); Carbon Dioxide 28 mmol/L (22-30); Chloride 101 mmol/L (98-107); Glucose 127 mg/dL (74-99); Non-African American GFR(CKD) >90 (>60 ml/min/1.73 sqM); Potassium 4.7 mmol/L (3.5-5.1); Sodium 138 mmol/L (137-145); Total Bilirubin 0.8 mg/dL (0.2-1.3); Total Protein 7.5 g/dL (6.3-8.2)
--- NOTE | 2021-01-05 11:24 | CT ---
EXAMINATION TYPE: CT abdomen pelvis w con DATE OF EXAM: 01/05/2021 COMPARISON: CT 05/20/2020 HISTORY: bilateral pelvic pain, history of inguinal hernia repair [address] DLP: 1629.3 mGycm Automated exposure control for dose reduction was used. TECHNIQUE: Helical acquisition of images from the lung bases through the pelvis have been completed. CONTRAST: Performed without Oral Contrast and with IV Contrast, patient injected with 100 mL of Isovue 300. FINDINGS: LUNG BASES: No significant abnormality is appreciated. AORTA: No significant abnormality is appreciated. LIVER/GB: Liver shows no mass, there is low attenuation suggesting possible hepatic steatosis, liver is enlarged PANCREAS: No significant abnormality is seen. SPLEEN: Focal calcification could be indicative of old granulomatous disease ADRENALS: No significant abnormality is seen. KIDNEYS: Hypodense focus in the midpole the left kidney measures 11 mm but shows high attenuation, fi ndings may be indicative of proteinaceous cyst, follow-up could BE performed to assess for stability. REPRODUCTIVE ORGANS: No significant abnormality is seen BOWEL: No evident bowel obstruction. There are areas of small bowel which show some questionable wal l thickening. The appendix is normal FREE AIR: No Free Air visible. ASCITES: None visible. PELVIC ADENOPATHY: None visualized. RETROPERITONEAL ADENOPATHY: No Retroperitoneal Adenopathy visible. URINARY BLADDER: Bladder wall thickening could be due to lack of distention, correlate to exclude cy stitis, bladder outlet obstruction OSSEOUS STRUCTURES: Degenerative disc changes are noted in the visualized spine IMPRESSION: INDETERMINATE 11 MM LEFT RENAL LESION, FOLLOW-UP RECOMMENDED. HEPATOMEGALY, HEPATIC STEATOSIS. CORREL ATE FOR POSSIBLE ENTERITIS, CYSTITIS.
[2021-01-05 12:22] VITALS: BP 146/88; PULSE 78; TEMP 97.9
== END 2021-01-05 12:21 | disposition home or self-care (01) ==
LOC: EC 09:29
DX: N28.9 Disorder of kidney and ureter, unspecified (principal); R10.2 Pelvic and perineal pain; K21.9 Gastro-esophageal reflux disease without esophagitis; E78.5 Hyperlipidemia, unspecified; I10 Essential (primary) hypertension; I25.2 Old myocardial infarction; F17.200 Nicotine dependence, unspecified, uncomplicated; Z79.899 Other long term (current) drug therapy; Z99.89 Dependence on other enabling machines and devices; Z79.82 Long term (current) use of aspirin; Z95.5 Presence of coronary angioplasty implant and graft; Z86.73 Personal history of transient ischemic attack (TIA), and cerebral infarction without residual deficits
CPT/HCPCS: 36415; 80053; 83605; 85025; 81003; 74177; 99284; Q9967

== ENCOUNTER 2022-06-21 06:14 | Inpatient (IN) | payer BC, OTHER ==
[2022-06-21 06:18] LABS: Glucose,Whole Blood 155 mg/dL (70-110)
[2022-06-21] MEDS ORDERED: SODIUM CHLORIDE 0.9% 1,000 ML IV STA ×2 (06:18)
--- NOTE | 2022-06-21 06:36 | ED ---
Neuro HPI - General Chief Complaint: Neuro Symptoms/Deficit Stated Complaint: stroke symptoms Time Seen by Provider: 06/21/22 06:21 Source: patient, RN notes reviewed Mode of arrival: ambulatory Limitations: no limitations - History of Present Illness Is the patient presenting with stroke symptoms?: Yes Last Known Well Date: 06/20/22 Last Known Well Time: 19:30 Initial Comments: This is a 51-year-old male presents emergency department to complaint of left- sided facial droop, difficulty and bleeding. Patient states that she did not feel well yesterday afternoon and states that he was felt tight rule out that around 7:30 on the ground. Patient states that he just seemed to be off EMS from sleep reportedly she came home around 3:30 he has some slurred speech which continued when he woke up around 432 Around Again. Patient States He Had a TIA 5 Years Ago and Also Said Prior Cardiac Stent. Patient Has a Headache No Blurred Vision States He Feels That It's Difficulty Ambulate but Denies Any Focal Weakness He Does Take a Daily Baby Aspirin Denies Taking Any Blood Thin ners. Patient Uses See Cardiology Has Not Seen Currently A While. - Related Data Home Medications: Home Medications Medication Instructions Recorded Confirmed Metoprolol Tartrate [Lopressor] 25 mg PO BID 01/07/19 06/21/22 Olmesartan/Hydrochlorothiazide 1 tab PO DAILY 01/07/19 06/21/22 [Benicar Hct 40-12.5 mg Tablet] Lansoprazole [Prevacid] 15 mg PO DAILY 05/20/20 06/21/22 Aspirin 325 mg PO DAILY 06/21/22 06/21/22 Allergies/Adverse Reactions: Allergies Allergy/AdvReac Type Severity Reaction Status Date / Time No Known Allergies Allergy Verified 06/21/22 07:42 Review of Systems ROS Statement: Those systems with pertinent positive or pertinent negative responses have been documented in the HPI. ROS Other: All systems not noted in ROS Statement are negative. General Exam Limitations: no limitations General appearance: alert, in no apparent distress Head exam: Present: atraumatic, normocephalic, normal inspection Eye exam: Present: normal appearance, PERRL, EOMI. Absent: scleral icterus, conjunctival injection, periorbital swelling ENT exam: Present: normal exam, mucous membranes moist Neck exam: Present: normal inspection, full ROM. Absent: tenderness, meningismus, lymphadenopathy Respiratory exam: Present: normal lung sounds bilaterally. Absent: respiratory distress, wheezes, rales, rhonchi, stridor Cardiovascular Exam: Present: regular rate, normal rhythm, normal heart sounds. Absent: systolic murmur, diastolic murmur, rubs, gallop, clicks Extremities exam: Present: normal inspection, full ROM, normal capillary refill. Absent: tenderness, pedal edema, joint swelling, calf tenderness Expanded Patient oriented to: Present: person, place, time Speech: Present: fluid speech Cranial nerves: EOM's Intact: Normal, Gag Reflex: Normal, Tongue Deviation: Normal, Facial Sensation: Normal, Facial Palsy with Forehead Movement: Abnormal Left Cerebellar function: Finger to Nose: Normal, Heel to Johnson: Normal Upper motor neuron: Basilio Neglect: Normal, Pronator Drift: Normal Sensory exam: Upper Extremity Light Touch: Normal, Upper Extremity Pin Prick: Normal, Upper Extremity Temperature: Normal, UE 2 Point Discrimination: Normal, Lower Extremity Light Touch: Normal, Lower Extremity Pin Prick: Normal, Lower Extremity Temperature: Normal, LE 2 Point Discrimination: Normal Motor strength exam: RUE: 5, LUE: 5, RLE: 5, LLE: 5 Eye Response: (4) open spontaneously Motor Response: (6) obeys commands Verbal Response: (5) oriented [place] Total: 15 (NIH 2) Skin exam: Present: warm, dry, intact, normal color. Absent: rash Stroke MDM - Lab Data Result diagrams: 06/21/22 06:26 06/21/22 06:26 Lab Results 06/21/22 06/21/22 06/21/22 Range/Units 06:16 06:26 06:26 WBC 8.5 (3.8-10.6) k/uL RBC 6.19 H (4.30-5.90) m/uL Hgb 17.4 (13.0-17.5) gm/dL Hct 52.2 (39.0-53.0) % MCV 84.4 (80.0-100.0) fL MCH 28.0 (25.0-35.0) pg MCHC 33.2 (31.0-37.0) g/dL RDW 12.7 (11.5-15.5) % Plt Count 365 (150-450) k/uL MPV 7.4 Neutrophils % 56 % Lymphocytes % 32 % Monocytes % 6 % Eosinophils % 2 % Basophils % 2 % Neutrophils # 4.7 (1.3-7.7) k/uL Lymphocytes # 2.7 (1.0-4.8) k/uL Monocytes # 0.5 (0-1.0) k/uL Eosinophils # 0.2 (0-0.7) k/uL Basophils # 0.1 (0-0.2) k/uL PT 10.1 (9.0-12.0) sec INR 0.9 (<1.2) APTT 25.8 (22.0-30.0) sec Sodium (137-145) mmol/L Potassium (3.5-5.1) mmol/L Chloride (98-107) mmol/L Carbon Dioxide (22-30) mmol/L Anion Gap mmol/L BUN (9-20) mg/dL Creatinine (0.66-1.25) mg/dL Est GFR (CKD-EPI)AfAm (>60 ml/min/1.73 sqM) Est GFR (CKD-EPI)NonAf (>60 ml/min/1.73 sqM) Glucose (74-99) mg/dL POC Glucose (mg/dL) 155 H (70-110) mg/dL POC Glu Dry Wall Installer ID Boris Galindo Calcium (8.4-10.2) mg/dL Total Bilirubin (0.2-1.3) mg/dL AST (17-59) U/L ALT (4-49) U/L Alkaline Phosphatase (38-126) U/L Troponin I (0.000-0.034) ng/mL Total Protein (6.3-8.2) g/dL Albumin (3.5-5.0) g/dL 06/21/22 06/21/22 Range/Units 06:26 06:26 WBC (3.8-10.6) k/uL RBC (4.30-5.90) m/uL Hgb (13.0-17.5) gm/dL Hct (39.0-53.0) % MCV (80.0-100.0) fL MCH (25.0-35.0) pg MCHC (31.0-37.0) g/dL RDW (11.5-15.5) % Plt Count (150-450) k/uL MPV Neutrophils % % Lymphocytes % % Monocytes % % Eosinophils % % Basophils % % Neutrophils # (1.3-7.7) k/uL Lymphocytes # (1.0-4.8) k/uL Monocytes # (0-1.0) k/uL Eosinophils # (0-0.7) k/uL Basophils # (0-0.2) k/uL PT (9.0-12.0) sec INR (<1.2) APTT (22.0-30.0) sec Sodium 135 L (137-145) mmol/L Potassium 4.6 (3.5-5.1) mmol/L Chloride 105 (98-107) mmol/L Carbon Dioxide 22 (22-30) mmol/L Anion Gap 8 mmol/L BUN 15 (9-20) mg/dL Creatinine 0.91 (0.66-1.25) mg/dL Est GFR (CKD-EPI)AfAm >90 (>60 ml/min/1.73 sqM) Est GFR (CKD-EPI)NonAf >90 (>60 ml/min/1.73 sqM) Glucose 139 H (74-99) mg/dL POC Glucose (mg/dL) (70-110) mg/dL POC Glu Dry Wall Installer ID Calcium 9.4 (8.4-10.2) mg/dL Total Bilirubin 0.6 (0.2-1.3) mg/dL AST 30 (17-59) U/L ALT 29 (4-49) U/L Alkaline Phosphatase 102 (38-126) U/L Troponin I <0.012 (0.000-0.034) ng/mL Total Protein 8.0 (6.3-8.2) g/dL Albumin 4.6 (3.5-5.0) g/dL - NIH Stroke Scale 1a. Level of Consciousness: (0) alert 1b. LOC Questions: (0) answers correctly 1c. LOC Commands: (0) performs tasks correctly 2. Best Gaze: (0) normal 3. Visual: (0) no visual loss 4. Facial Palsy: (2) partial paralysis 5a. Motor Arm Left: (0) no drift 5b. Motor Arm Right: (0) no drift 6a. Motor Leg Left: (0) no drift 6b. Motor Leg Right: (0) no drift 7. Limb Ataxia: (0) absent 8. Sensory: (0) normal 9. Best Language: (0) no aphasia 10. Dysarthria: (0) normal 11. Extinction/Inattention: (0) no abnormality NIH Score total: 2 - Medical Decision Making 51-year-old male presented for left-sided facial paralysis, weakness or left side patient had an NIH of 2. Patient was really called code stroke patient was sent to CT for CT noncontrast computed tomography scan 0 patient. Labs. Patient is not a TPA candidate given low NIH and onset of symptoms unclear as patient awoke with symptoms. Patient's case discussed with Dr. Rowell patient will be admitted for neurology evaluation did discuss this may be early Levin's palsy. Past Medical History Past Medical History: CVA/TIA, GERD/Reflux, Hyperlipidemia, Hypertension, Myocardial Infarction ([place]), Sleep Apnea/CPAP/BIPAP Additional Past Medical History / Comment(s): hypercholestremia Last Myocardial Infarction Date:: 05/2018 History of Any Multi-Drug Resistant Organisms: None Reported Past Surgical History: Heart Catheterization With Stent, Hernia Repair Additional Past Surgical History / Comment(s): eye surgery, vasectomy. stent x2 Past Anesthesia/Blood Transfusion Reactions: Previous Problems w/ Anesthesia Additional Past Anesthesia/Blood Transfusion Reaction / Comment(s): pt states stopped breathing during egd oxygen applied resolved Date of Last Stent Placement:: 05/2018 Past Psychological History: No Psychological Hx Reported Smoking Status: Current every day smoker Past Alcohol Use History: Occasional Past Drug Use History: Marijuana - Past Family History Father Additional Family Medical History / Comment(s): from circulation issues at the age of 63 Mother Family Medical History: Cancer Additional Family Medical History / Comment(s): from [place] at the age of 58 Course Vital Signs 06/21/22 06:22 Temperature 98.4 F Pulse Rate 105 H Respiratory 20 Rate Blood Pressure 161/95 O2 Sat by Pulse 98 Oximetry Critical Care Time Critical Care Time: Yes Total Critical Care Time: 35 Disposition Clinical Impression: Cerebrovascular accident (CVA) Disposition: ADMITTED IP TO THIS [facility] Condition: Fair Referrals: Paulo Rowell MD [Primary Care Provider] - 1-2 days Time of Disposition: 08:18
[2022-06-21 06:55] LABS: Basophils # (A) 0.1 k/uL (0-0.2); Basophils % (A) 2 %; Eosinophils # (A) 0.2 k/uL (0-0.7); Eosinophils % (A) 2 %; HCT 52.2 % (39.0-53.0); HGB 17.4 gm/dL (13.0-17.5); Lymphocytes # (A) 2.7 k/uL (1.0-4.8); Lymphocytes % (A) 32 %; MCHC 33.2 g/dL (31.0-37.0); MCV 84.4 fL (80.0-100.0); Mean Platelet Volume 7.4; Monocytes # (A) 0.5 k/uL (0-1.0); Monocytes % (A) 6 %; Neutrophils # (A) 4.7 k/uL (1.3-7.7); Neutrophils % (A) 56 %; Platelet Count 365 k/uL (150-450); RBC 6.19 m/uL (4.30-5.90); RDW 12.7 % (11.5-15.5); WBC 8.5 k/uL (3.8-10.6)
--- NOTE | 2022-06-21 06:56 | CT ---
EXAMINATION TYPE: CT brain wo con for TPA DATE OF EXAM: 06/21/2022 COMPARISON: 04/10/2015 HISTORY: Lt sided weakness CT DLP: 1107 mGycm Automated exposure control for dose reduction was used. Images of the brain obtained with no contrast. Ventricles and sulci appear normal. There is no mass effect or midline shift. No sign of intracranial hemorrhage. No evidence of cerebral edema. The calvarium is intact. IMPRESSION: Negative unenhanced head CT scan. No change.
[2022-06-21 07:03] LABS: INR 0.9 (<1.2); Partial Thromboplastin Time 25.8 sec (22.0-30.0); Prothrombin Time 10.1 sec (9.0-12.0)
[2022-06-21 07:04] LABS: ALT 29 U/L (4-49); AST 30 U/L (17-59); African American GFR (CKD) >90 (>60 ml/min/1.73 sqM); Albumin 4.6 g/dL (3.5-5.0); Alkaline Phosphatase 102 U/L (38-126); Anion Gap 8 mmol/L; Blood Urea Nitrogen 15 mg/dL (9-20); Calcium 9.4 mg/dL (8.4-10.2); Carbon Dioxide 22 mmol/L (22-30); Chloride 105 mmol/L (98-107); Glucose 139 mg/dL (74-99); Non-African American GFR(CKD) >90 (>60 ml/min/1.73 sqM); Potassium 4.6 mmol/L (3.5-5.1); Sodium 135 mmol/L (137-145); Total Bilirubin 0.6 mg/dL (0.2-1.3)
--- NOTE | 2022-06-21 07:14 | CT ---
EXAMINATION TYPE: CT angio head neck DATE OF EXAM: 06/21/2022 COMPARISON: None HISTORY: Lt sided weakness CT DLP: 821 mGycm Automated exposure control for dose reduction was used. CONTRAST: Performed with IV Contrast, patient injected with 65 mL of Isovue 370. Images obtained from the aortic arch to the vertex of the brain with IV contrast. Three-D postprocessed images. There is normal branching pattern of the great vessels on the aortic arch. There is bilateral arteria l flow in the subclavian arteries. Left vertebral artery has origin on the aortic arch. There is arterial flow in the common internal and external carotid arteries bilaterally. This plaque formation and 50% stenosis at the origin left internal carotid artery. There is plaque formation and 25% stenosis at the origin of the right internal card artery. There is arterial flow in both vertebra l arteries. No evidence of carotid or vertebral artery aneurysm or dissection. There is arterial flow in the vertebrobasilar artery system. There is distal vertebral artery calcification. There is arterial flow in the anterior middle and posterior cerebral arteries bilaterally. No mass ef fect. No evidence of intracranial aneurysm or neovascularity. The right posterior cerebral artery zen ears to fill mostly through the right posterior communicating artery. There is no evidence of intracr anial aneurysm or neovascularity. No evidence of intracranial arterial stenosis. IMPRESSION: Negative CT angiogram of the brain. Plaque formation and 50% stenosis at the origin of the left internal carotid artery and 25% stenosis origin right internal card artery.
[2022-06-21] MEDS ORDERED: ASPIRIN 325 MG TAB PO STA (08:19)
[2022-06-21] MEDS ORDERED: LOSARTAN 50 MG TAB PO SCH (09:00)
[2022-06-21] MEDS: hydroCHLOROthiazide 12.5 MG CAP PO SCH (09:19)
[2022-06-21] MEDS: PANTOPRAZOLE 40 MG TABLET PO SCH (09:20)
[2022-06-21] MEDS: METOPROLOL TARTRATE 25 MG TAB PO SCH ×2 (09:20→21:58)
[2022-06-21] MEDS ORDERED: CLOPIDOGREL 75 MG TAB PO STA (11:32)
--- NOTE | 2022-06-21 11:41 | CA ---
Transthoracic Echo Report Name: Ferny Thomas Age: 51 Gender: M : 1970 Exam Date: 06/21/2022 09:02 Exam Location: [facility] Ht (in): 66 Wt (lb): 220 Ordering Physician: Ferny Paul Attending/Referring Phys: [id number], [place] Public Safety Officer Miladys Nielson RDCS Procedure CPT: Indications: CVA Cardiac Hx: Technical Quality: Fair Contrast 1: Total Dose (mL): Contrast 2: Total Dose (mL): MEASUREMENTS (Male / Female) Normal Values 2D ECHO LV Diastolic Diameter PLAX 3.9 cm 4.2 - 5.9 / 3.9 - 5.3 cm LV Systolic Diameter PLAX 2.8 cm IVS Diastolic Thickness 1.1 cm 0.6 - 1.0 / 0.6 - 0.9 cm LVPW Diastolic Thickness 1.1 cm 0.6 - 1.0 / 0.6 - 0.9 cm LV Relative Wall Thickness 0.6 RV Internal Dim ED PLAX 3.1 cm LA Systolic Diameter LX 3.4 cm 3.0 - 4.0 / 2.7 - 3.8 cm LA Volume 26.3 cm??? 18 - 58 / 22 - 52 cm??? M-MODE Aortic Root Diameter MM 3.5 cm MV E Point Septal Separation 2.0 cm AV Cusp Separation MM 2.0 cm DOPPLER AV Peak Velocity 118.9 cm/s AV Peak Gradient 5.7 mmHg MV Area PHT 3.6 cm??? Mitral E Point Velocity 77.9 cm/s Mitral A Point Velocity 68.9 cm/s Mitral E to A Ratio 1.1 MV Deceleration Time 209.7 ms MV E' Velocity 6.8 cm/s Mitral E to MV E' Ratio 11.4 FINDINGS Left Ventricle Left ventricular ejection fraction is estimated at 60-65 %. Left ventricular cavity size normal. Borderline left ventricular hypertrophy. Right Ventricle Normal right ventricular size and function. Right Atrium Normal right atrial size. Left Atrium Normal left atrial size. No evidence for an atrial septal defect. Mitral Valve Structurally normal mitral valve. No mitral stenosis, regurgitation or prolapse. Aortic Valve Trileaflet aortic valve. No aortic valve stenosis or regurgitation. Tricuspid Valve Structurally normal tricuspid valve. Pulmonic Valve Pulmonic valve not well visualized. Pericardium Normal pericardium. No pericardial effusion. Aorta Normal size aortic root and proximal ascending aorta. CONCLUSIONS Normal LV systolic function Previewed by: Dr. Ildefonso Root MD (Electronically Signed) Final Date: 21 June 2022 11:41
--- NOTE | 2022-06-21 14:40 | P.CNNES ---
History of Present Illness Consult date: 06/21/22 Requesting physician: Ferny Paul Reason for Consult: CVA History of Present Illness: Patient is a 51-year-old right-handed male with history of hypertension, tobacco use, coronary artery disease, status post stenting, on aspirin 325 mg daily, states that yesterday morning he was doing well. He performed some work out, lifted weights and was talking to his friends and was normal. At around 3:30 PM, when he was talking to his , she notices that he was slurring his speech. Patient states that he just felt exhausted. He laid down. At 7:30 PM he tried to get up to go to the bathroom, and his left face was noticed to be slightly droopy. He just went to sleep. This morning he woke up, got up and was trying to go to the bathroom, when he fell down. It took time for him to get up. His noticed that he was weak on the left side. There was obvious left facial droop. He told her to take her to the hospital. When he was trying to walk to the jeep, he was dragging his left leg, and has to require help getting into and to get out of the jeep. He was noticing slightly less control of his left arm. There was no problem with swallowing, double vision, loss of vision. Vital signs arrival blood pressure 161/95, pulse rate 105, temperature 98.4. EKG shows normal sinus rhythm, with heart rate of 94. CT head revealed no acute process. I personally reviewed CT head, agree with the findings. There is evidence of bilateral basal ganglionic calcification, which is chronic. CTA of head was reported as negative. CTA of neck reported as plaque formation and 50% stenosis at the origin of the left ICA and 25% stenosis origin of the right ICA. Blood tests shows normal WBC, hemoglobin 17.4 platelets 365 PT/PTT normal, sodium 135 CMP is normal. Troponin negative. Patient has history of hypertension for 10-15 years. Denies diabetes. Patient states he had history of a mini strokes years ago, which affected his right side at that time. It never affected his walking or had any facial droop. Patient's states that he had a few spells, in which she was found on the floor, not able to talk or speak, couldn't connect brain to the mouth. On review of records, it appears he had an MRI of the brain on 06/03/2015, which revealed several foci of increased signal within the left centrum semiovale which may reflect areas acute focal ischemia. Correlate for embolic process. I dalila galvan reviewed that MRI, agree with the findings, although ADC map was negative. The abnormal signal could be T2 shine through. Intracranial MRA was normal. He has been taking aspirin 325 mg daily since then. He is compliant with aspirin. Patient states that he ran out of insurance therefore he stopped taking Lipitor about 5-6 months ago. He has smoked 1+ pack per day from age 16, still smokes. He drinks alcohol "now and then", not heavy drinking. He smokes marijuana for years. Denies any other drug use. Review of Systems Patient denies any chest pain, shortness of breath, palpitations, abdominal pain, nausea vomiting diarrhea. Denies any double vision or loss of vision. No hoarseness, sore throat, dysphagia. No rash. No fever or chills. No anxiety or depression. All other review of systems reviewed, noncontributory to the present illness. Neurological as per HPI. Past Medical History Past Medical History: CVA/TIA, GERD/Reflux, Hyperlipidemia, Hypertension, Myocardial Infarction ([place]), Sleep Apnea/CPAP/BIPAP Additional Past Medical History / Comment(s): hypercholestremia Last Myocardial Infarction Date:: 05/2018 History of Any Multi-Drug Resistant Organisms: None Reported Past Surgical History: Heart Catheterization With Stent, Hernia Repair Additional Past Surgical History / Comment(s): eye surgery, vasectomy. stent x2 Past Anesthesia/Blood Transfusion Reactions: Previous Problems w/ Anesthesia Additional Past Anesthesia/Blood Transfusion Reaction / Comment(s): pt states stopped breathing during egd oxygen applied resolved Date of Last Stent Placement:: 05/2018 Past Psychological History: No Psychological Hx Reported Smoking Status: Current every day smoker Past Alcohol Use History: Occasional Past Drug Use History: Marijuana - Past Family History Father Additional Family Medical History / Comment(s): from circulation issues at the age of 63 Mother Family Medical History: Cancer Additional Family Medical History / Comment(s): from [place] at the age of 58 Medications and Allergies Home Medications Medication Instructions Recorded Confirmed Type Metoprolol Tartrate [Lopressor] 25 mg PO BID 01/07/19 06/21/22 History Olmesartan/Hydrochlorothiazide 1 tab PO DAILY 01/07/19 06/21/22 History [Benicar Hct 40-12.5 mg Tablet] Lansoprazole [Prevacid] 15 mg PO DAILY 05/20/20 06/21/22 History Aspirin 325 mg PO DAILY 06/21/22 06/21/22 History Allergies Allergy/AdvReac Type Severity Reaction Status Date / Time No Known Allergies Allergy Verified 06/21/22 07:42 Physical Examination - Vital Signs Vital Signs: Vital Signs Temp Pulse Pulse Resp BP BP Pulse Ox 06/21/22 12:00 67 17 140/103 06/21/22 10:19 74 20 138/82 98 06/21/22 09:09 79 16 156/86 98 06/21/22 06:22 98.4 F 105 H 20 161/95 98 Intake and Output 06/20/22 06/21/22 06/21/22 22:59 06:59 14:59 Other: Weight 99.79 kg Patient is a middle aged male, very pleasant, in no acute distress. Patient is alert awake oriented to time place and person. Speech is very mildly dysarthric but no aphasia and language functions are normal. Patient can name and repeat very well. Attention, concentration and fund of knowledge is adequ ate. On cranial nerve examination, pupils are equal, round and reacting to light, visual petit are full on confrontation, with no visual neglect on double simultaneous stimulation. His extraocular muscles are intact with no nystagmus. He has left facial weakness, central type. His tongue protrudes to the midline. Palatal elevation and sensation normal, hearing and shoulder shrug normal, facial sensation normal. Shoulder shrug normal. On muscle strength testing, there is left pronator drift and the strength is normal in arms and legs distally and proximally, except left bilingual trainer which is 5-, and left hip flexion 5-, rest were all normal. Deep tendon reflexes are (right/left biceps 2+/2, brachioradialis 2+/1+, knees 3/3, ankle 1/4 and plantars are upgoing bilaterally. Sensory to touch is equal with no neglect on double simultaneous stimulation. Cerebellar function showed no ataxia for [id number] testing. Tone and bulk of muscles normal. Gait deferred. On general examination, there is no carotid bruit or murmur, S1-S2 audible. Abdomen is soft nontender. No organomegaly, bowel sounds present. Chest is clear. Peripheral pulses are present. No edema. Results - Laboratory Findings CBC and BMP: 06/21/22 06:26 06/21/22 06:26 Abnormal Lab Findings: Abnormal Labs 06/21/22 06/21/22 06/21/22 06:16 06:26 06:26 RBC 6.19 H Sodium 135 L Glucose 139 H POC Glucose (mg/dL) 155 H Assessment and Plan Assessment: * Probable acute ischemic stroke with mild dysarthria and mild left hemiparesis. His NIH stroke scale is 3 related to left facial droop, left arm drift and mild dysarthria. * Hypertension * Hyperlipidemia * Coronary artery disease * History of previous CVA with no residual deficits. * Tobacco use Plan: * Patient has failed aspirin regimen. He was taking aspirin 325 mg daily. * Patient will be loaded with Plavix 150 mg 1 dose, then 75 mg daily. Patient will need DAP for 21 days. * Permissive hypertension for 24-48 hours * Fasting lipid panel, hemoglobin A1c * MRI of the brain to evaluate for acute stroke * CTA of head and neck revealed 50% stenosis of the left ICA and 25% stenosis of the right ICA. We will check carotid Doppler. * Telemetry monitoring rule out arrhythmia. * PT OT, speech therapy * Close neuro checks * DVT prophylaxis: We'll start heparin 5000 units subcu every 12 hours. * Strongly recommended tobacco cessation. * Neurology will follow. * Thank you for the consult.
[2022-06-21] MEDS: HEPARIN SODIUM,PORCINE/PF 5,000 UNIT/0.5 ML SYRINGE SQ SCH ×2 (16:51→21:58)
[2022-06-21 17:02] LABS: Urn Cannabinoid Scrn Detected (NotDetected)
--- NOTE | 2022-06-21 17:02 | MR ---
EXAMINATION TYPE: MR brain wo con DATE OF EXAM: 06/21/2022 2:40 PM COMPARISON: MR angiogram head neck 06/03/2015. CLINICAL INDICATION:Male, 51 years old with history of Acute CVA; TECHNIQUE: Multi planar, multi sequence imaging was performed through the brain including: T1, T2, In version recovery, Diffusion weighted imaging, and gradient echo imaging. No gadolinium was given. FINDINGS: Scattered foci of restricted diffusion in height DWI/low ADC signal seen throughout the right middle cerebral artery territory predominantly involving the right huff radiata of the parietal, temporal and frontal lobes. A more confluent area seen within the right huff radiata superior to the basal g anglia Additional nonspecific scattered high T2 signal in the periventricular and deep white matter. The gracia-white junctions, ventricular system, and cisterns appear unremarkable. The bone marrow signa l is within normal limits. The paranasal sinuses show minimal mucosal thickening. There is a removed from the globes. IMPRESSION: 1. Scattered acute/subacute foci of microinfarcts involving the predominantly right MCA territory as well as a more confluent area within the right huff radiata 2. Nonspecific white matter changes, likely secondary to small vessel ischemic disease.
[2022-06-21 17:03] LABS: Amphetamine Screen,Urine Not Detected (NotDetected); Barbiturate Screen,Urine Not Detected (NotDetected); Benzodiazepines Screen,Urine Not Detected (NotDetected); Cocaine Screen,Urine Not Detected (NotDetected); Methadone Screen, Urine Not Detected (NotDetected); Opiate Screen,Urine Not Detected (NotDetected); Oxycodone Screen, Urine Not Detected (NotDetected); Phencyclidine Screen,Urine Not Detected (NotDetected); Tricyclic Antidepressant,Urine Not Detected (NotDetected)
--- NOTE | 2022-06-21 19:03 | US ---
EXAMINATION TYPE: US carotid duplex BILAT DATE OF EXAM: 06/21/2022 COMPARISON: US 2015 CLINICAL HISTORY: CVA. CVA TECHNIQUE: Carotid duplex ultrasound examination. Indirect Doppler criteria was utilized. 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 Criteria for Assigning % of Stenosis / Diameter reduction (Estimation based on the indirect measurements of the internal carotid artery velocities (ICA PSV). 1. Normal (no stenosis)=ICA PSV < 125 cm/s: ratio < 2.0: ICA EDV<40 cm/s. 2. Less than 50% stenosis=ICA PSV < 125 cm/s: ratio < 2.0: ICA EDV<40 cm/s. 3. 50 to 69% stenosis=ICA PSV of 125 to 230 cm/s: ration 2.0 ? 4.0: ICA EDV 40-100 cm/s. 4. Greater than 70% stenosis to near occlusion= ICA PSV > 230 cm/s: ratio > 4.0: ICA EDV > 100 cm/s. 5. Near occlusion= ICA PSV velocities may be low or undetectable: variable ratio and ICA EDV. 6. Total occlusion=unable to detect flow.
[2022-06-22] MEDS: PANTOPRAZOLE 40 MG TABLET PO SCH (06:45)
[2022-06-22] MEDS ORDERED: ASPIRIN 325 MG TAB PO SCH (09:00)
[2022-06-22] MEDS: METOPROLOL TARTRATE 25 MG TAB PO SCH ×2 (09:12→20:35)
[2022-06-22] MEDS: hydroCHLOROthiazide 12.5 MG CAP PO SCH (09:12)
[2022-06-22] MEDS: HEPARIN SODIUM,PORCINE/PF 5,000 UNIT/0.5 ML SYRINGE SQ SCH ×2 (09:12→20:35)
[2022-06-22] MEDS: CLOPIDOGREL 75 MG TAB PO SCH (09:12)
--- NOTE | 2022-06-22 12:49 | P.HPIM ---
History of Present Illness H&P Date: 06/22/22 Chief Complaint: Left-sided weakness, slurred speech This is a pleasant 51-year-old gentleman with past medical history of TIA( with right-sided symptoms at that time), gastroesophageal reflux disease, CAD, CT, nicotine dependence, THC use, occasional alcohol use and multiple other medical issues presented to the ER with left-sided facial droop, slurred speech, left- sided weakness initially started the evening before bed. Reports he had been lifting weights in the afternoon prior , developed fatigue with some slurring of speech , developed mild left facial droop , and proceeded to lay down for nap .upon getting up to proceed to the bathroom,had difficulty standing maintaining balance with left leg and weakness of left arm. Denies nausea vomiting or diarrhea. Denies lightheadedness dizziness, blurred or double vision but did report a headache. Brain CT negative, no change. CTA of the brain reported negative, 50% stenosis at the origin of the left internal carotid artery and 25% right internal carotid artery. Echo reported Normal LV function. Afebrile, no rmal WBC, hypertensive, maintaining O2 sats in the high 90s on room air. Hematology, coagulation, chemistry panels unremarkable, hemoglobin A1c 6.3, troponin negative. Toxicology screen detected THC. Neurology consult in place, recommendations pending. Review of Systems ROS Statement: Those systems with pertinent positive or pertinent negative responses have been documented in the HPI. ROS Other: All systems not noted in ROS Statement are negative. Past Medical History Past Medical History: Coronary Artery Disease (CAD), CVA/TIA, GERD/Reflux, Hyperlipidemia, Hypertension, Myocardial Infarction (CT), Sleep Apnea/CPAP/BIPAP Additional Past Medical History / Comment(s): TIA Last Myocardial Infarction Date:: 05/2018 History of Any Multi-Drug Resistant Organisms: None Reported Past Surgical History: Heart Catheterization With Stent, Hernia Repair Additional Past Surgical History / Comment(s): PCI with stents, bilateral inguinal hernia repairs, EGD, vasectomy, bilateral eye cataracts. Past Anesthesia/Blood Transfusion Reactions: Previous Problems w/ Anesthesia Additional Past Anesthesia/Blood Transfusion Reaction / Comment(s): pt states stopped breathing during egd, oxygen applied resolved Date of Last Stent Placement:: 05/2018 Smoking Status: Current every day smoker - Past Family History Father Family Medical History: Vascular Disorder Additional Family Medical History / Comment(s): from circulation issues at the age of 63 Mother Family Medical History: Cancer Additional Family Medical History / Comment(s): from CA at the age of 58 Medications and Allergies Home Medications Medication Instructions Recorded Confirmed Type Metoprolol Tartrate [Lopressor] 25 mg PO BID 01/07/19 06/21/22 History Olmesartan/Hydrochlorothiazide 1 tab PO DAILY 01/07/19 06/21/22 History [Benicar Hct 40-12.5 mg Tablet] Lansoprazole [Prevacid] 15 mg PO DAILY 05/20/20 06/21/22 History Aspirin 325 mg PO DAILY 06/21/22 06/21/22 History Allergies Allergy/AdvReac Type Severity Reaction Status Date / Time No Known Allergies Allergy Verified 06/21/22 07:42 Physical Exam Vitals: Vital Signs Temp Pulse Pulse Resp BP BP Pulse Ox 06/21/22 14:00 67 17 06/21/22 12:00 67 17 140/103 06/21/22 10:19 74 20 138/82 98 06/21/22 09:09 79 16 156/86 98 06/21/22 06:22 98.4 F 105 H 20 161/95 98 Intake and Output 06/21/22 06/21/22 06/21/22 06:59 14:59 22:59 Intake Total 400 Output Total 700 Balance -300 Intake: Oral 400 Output: Urine 700 Other: Weight 99.79 kg 99.79 kg PHYSICAL EXAM: VITAL SIGNS: As above GENERAL: Sitting up in stretcher, no acute distress, speech fluent and clear, comprehension appears intact HEENT: Conjunctivae normal. eyes normal. Mild left facial droop. NECK: No JVD. No thyroid enlargement. No LNs CARDIOVASCULAR: S1, S2 regular.. No murmur RESPIRATION: Breath sounds diminished in the bases. No rhonchi or crackles. No bronchial breathing. ABDOMEN: Soft, nontender . No guarding. no masses palpable. No ascites, No hepatosplenomegaly.Bowel sounds heard. LEGS: No edema. no swelling PSYCHIATRY: Alert and oriented X3, mood and affect normal. NERVOUS SYSTEM: Cranial N 2-12 grossly normal. Left pronator drift, otherwise strength and sensation grossly intact.. Skin: Warm and dry, no rash Results CBC & Chem 7: 06/21/22 06:26 06/21/22 06:26 Labs: Abnormal Lab Results - Last 24 Hours (Table) 06/21/22 06/21/22 06/21/22 Range/Units 06:16 06:26 06:26 RBC 6.19 H (4.30-5.90) m/uL Sodium 135 L (137-145) mmol/L Glucose 139 H (74-99) mg/dL POC Glucose (mg/dL) 155 H (70-110) mg/dL Thrombosis Risk Factor Assmnt - Choose All That Apply Any of the Below Risk Factors Present?: Yes Each Factor Represents 1 point: Age 41-60 years, Obesity (BMI >25) Each Risk Factor Represents 5 Points: Stroke (< 1 month) Thrombosis Risk Factor Assessment Total Risk Factor Score: 7 Thrombosis Risk Factor Assessment Level: High Risk Assessment and Plan Assessment: Left-sided weakness, come new by facial droop and slurred speech, possible acute CVA, and the patient already on aspirin 325 mg daily History of TIA CAD, history of CT, stents Hypertension Dyslipidemia Nicotine dependence Obesity, BMI 35.5 Plan: Continue on current medication regime ,monitoring and symptomatic treatment. Neurology consult with workup in progress/MRI pending. Home meds have been reviewed and resumed accordingly. Nicotine/ THC cessation reinforced. Prognosis guarded given multiple complex medical issues. The impression and plan of care has been dictated as directed. : I performed a history and examination of this patient, discussed the same with the dictator. I agree with the dictator's note ,documented as a scribe. Any additional findings or plans will be noted.
[2022-06-22 13:06] LABS: Basophils # (A) 0.1 k/uL (0-0.2); Basophils % (A) 1 %; Eosinophils # (A) 0.1 k/uL (0-0.7); Eosinophils % (A) 1 %; HCT 50.2 % (39.0-53.0); HGB 16.9 gm/dL (13.0-17.5); Lymphocytes # (A) 1.9 k/uL (1.0-4.8); Lymphocytes % (A) 29 %; MCH 29.1 pg (25.0-35.0); MCHC 33.6 g/dL (31.0-37.0); MCV 86.6 fL (80.0-100.0); Mean Platelet Volume 7.9; Monocytes # (A) 0.4 k/uL (0-1.0); Monocytes % (A) 6 %; Neutrophils # (A) 3.9 k/uL (1.3-7.7); Neutrophils % (A) 61 %; Platelet Count 358 k/uL (150-450); RDW 13.2 % (11.5-15.5); WBC 6.3 k/uL (3.8-10.6)
--- NOTE | 2022-06-22 13:21 | P.CRDCN ---
History of Present Illness Consult date: 06/22/22 History of present illness: History of Present Illness: The patient is a 51-year-old male with history of hypertension, hyperlipidemia, chronic tobacco use and history of CAD who presented with left sided weakness and slurred speech. His symptoms started yesterday with some improvement today. He had according to him a stroke over 5 years ago. He has no change in his breathing, no chest discomfort, palpitation, dizziness or syncope. He denies any PND, orthopnea or peripheral edema. He underwent cardiac catheterization in April [address] Root and was found to have acute occlusion of the distal RCA with no high-grade stenosis in the left system. He subsequently underwent stenting of his RCA using a 2.5 x 18 and a 3.0 x 38 mm stents with thrombectomy. According to him he has been stable from the cardiac standpoint without any symptoms to suggest recurrent angina pectoris. He had an echocardiogram during this admission that showed a preserved systolic function with no significant valvular abnormalities. Cardiology consultation was requested for a MARCO to rule out cardiac source for his neurological event. His brain MRI showed scattered acute and subacute microinfarct involving the right middle cerebral artery territory. His coronary risk factors are positive for hypertension, hyperlipidemia and smoking. According to him he stopped smoking yesterday. Medications: Benicar HCT 4012-1/2 mg daily, aspirin once a day, metoprolol 25 mg twice a day. Patient has not been taking his statin for the last few months Review of Systems: Respiratory: No history of asthma, bronchitis or recent cough. GI: No nausea or vomiting . No history of peptic ulcer disease. No recent GI bleed. : No hematuria or dysuria. Nervous System: He has a prior history of stroke but no seizure. Physical Examination: 51-year-old male, alert oriented no apparent distress, mild slurred speech ,Blood pressure 144/79, Heart rate 80 Head: Decrease in the left nasolabial fold Eyes: Sclerae nonicteric. Neck: Good carotid upstroke, no bruit, no jugular venous distention. Lungs: Clear to auscultation. Heart: Regular rate and rhythm, S1-S2, no S3, no rub. No murmur. Abdomen: Soft nontender, positive bowel sounds no organomegaly. Extremities: No edema, intact distal pulses. Labs: Hemoglobin 16.9, white blood cell 6.3, BUN 15, creatinine 0.91. Troponin less than 0.012 EKG: EKG shows sinus mechanism with no acute ST segment changes Impression: 1. CVA with slurred speech and left-sided weakness 2. History of CAD status post stenting of the RCA with no evidence to suggest acute coronary syndrome 3. History of hypertension 4. Chronic tobacco use 5. History of hyperlipidemia, not treated Plan: 1. The patient is in sinus mechanism, there is no documentation of atrial fibrillation in the past. There is no evidence by examination or echocardiogram of an ASD or VSD 2. Continue on dual antiplatelets treatment in addition to statin and Benicar 3. Proceed with MARCO to rule out intracardiac etiology for his events 4. The procedure as well as the risks and the complications were discussed with the patient, he is in full understanding and agreement. 5. Thank you for this consult we will follow with you. Past Medical History Past Medical History: Coronary Artery Disease (CAD), CVA/TIA, GERD/Reflux, Hyperlipidemia, Hypertension, Myocardial Infarction ([place]), Sleep Apnea/CPAP/BIPAP Additional Past Medical History / Comment(s): TIA Last Myocardial Infarction Date:: 05/2018 History of Any Multi-Drug Resistant Organisms: None Reported Past Surgical History: Heart Catheterization With Stent, Hernia Repair Additional Past Surgical History / Comment(s): PCI with stents, bilateral ingu inal hernia repairs, EGD, vasectomy, bilateral eye cataracts. Past Anesthesia/Blood Transfusion Reactions: Previous Problems w/ Anesthesia Additional Past Anesthesia/Blood Transfusion Reaction / Comment(s): pt states stopped breathing during egd, oxygen applied resolved Date of Last Stent Placement:: 05/2018 Smoking Status: Current every day smoker - Past Family History Father Family Medical History: Vascular Disorder Additional Family Medical History / Comment(s): from circulation issues at the age of 63 Mother Family Medical History: Cancer Additional Family Medical History / Comment(s): from [place] at the age of 58 Medications and Allergies Home Medications Medication Instructions Recorded Confirmed Type Metoprolol Tartrate [Lopressor] 25 mg PO BID 01/07/19 06/21/22 History Olmesartan/Hydrochlorothiazide 1 tab PO DAILY 01/07/19 06/21/22 History [Benicar Hct 40-12.5 mg Tablet] Lansoprazole [Prevacid] 15 mg PO DAILY 05/20/20 06/21/22 History Aspirin 325 mg PO DAILY 06/21/22 06/21/22 History Allergies Allergy/AdvReac Type Severity Reaction Status Date / Time No Known Allergies Allergy Verified 06/21/22 07:42 Physical Exam Vitals: Vital Signs Temp Pulse Resp BP Pulse Ox 06/22/22 12:50 98.0 F 80 18 144/79 99 06/22/22 08:14 97.8 F 72 18 144/67 99 06/22/22 03:42 97.6 F 84 16 147/99 95 06/21/22 23:56 98.1 F 73 16 151/85 97 06/21/22 20:40 97.9 F 83 15 139/90 98 06/21/22 16:52 98.0 F 70 18 133/77 97 06/21/22 14:00 67 17 Intake and Output 06/21/22 06/22/22 06/22/22 22:59 06:59 14:59 Intake Total 518 540 240 Output Total 700 200 Balance -182 540 40 Intake: Oral 518 540 240 Output: Urine 700 200 Other: Voiding Method Urinal Urinal Urinal Results 06/22/22 08:55 06/21/22 06:26 CBC 06/22/22 Range/Units 08:55 WBC 6.3 (3.8-10.6) k/uL RBC 5.80 (4.30-5.90) m/uL Hgb 16.9 (13.0-17.5) gm/dL Hct 50.2 (39.0-53.0) % Plt Count 358 (150-450) k/uL Current Medications Generic Name Dose Route Start Last Admin Trade Name Hipolitoq PRN Reason Stop Dose Admin Aspirin 325 mg 06/22/22 09:00 06/22/22 09:12 Aspirin 325 Mg Tab PO 325 mg DAILY DORIS Administration Atorvastatin Calcium 80 mg 06/22/22 21:00 Atorvastatin 80 Mg Tab PO HS DORIS Clopidogrel Bisulfate 75 mg 06/22/22 09:00 06/22/22 09:12 Clopidogrel 75 Mg Tab PO 75 mg DAILY DORIS Administration Heparin Sodium (Porcine) 5,000 unit 06/21/22 14:45 06/22/22 09:12 Heparin Sodium,Porcine/Pf 5,000 Unit/0.5 Ml Syringe SQ 5,000 unit Q12HR DORIS Administration Hydrochlorothiazide 12.5 mg 06/21/22 09:00 06/22/22 09:12 Hydrochlorothiazide 12.5 Mg Cap PO 12.5 mg DAILY DORIS Administration Metoprolol Tartrate 25 mg 06/21/22 09:00 06/22/22 09:12 Metoprolol Tartrate 25 Mg Tab PO 25 mg BID DORIS Administration Pantoprazole Sodium 40 mg 06/21/22 09:00 06/22/22 06:45 Pantoprazole 40 Mg Tablet PO 40 mg [id number] DORIS Administration Intake and Output 06/21/22 06/22/22 06/22/22 22:59 06:59 14:59 Intake Total 518 540 240 Output Total 700 200 Balance -182 540 40 Intake: Oral 518 540 240 Output: Urine 700 200 Other: Voiding Method Urinal Urinal Urinal 06/22/22 08:55 06/21/22 06:26
[2022-06-22 13:22] LABS: African American GFR (CKD) >90 (>60 ml/min/1.73 sqM); Anion Gap 13 mmol/L; Blood Urea Nitrogen 13 mg/dL (9-20); Calcium 9.5 mg/dL (8.4-10.2); Carbon Dioxide 23 mmol/L (22-30); Chloride 100 mmol/L (98-107); Glucose 184 mg/dL (74-99); Non-African American GFR(CKD) >90 (>60 ml/min/1.73 sqM); Potassium 4.2 mmol/L (3.5-5.1); Sodium 136 mmol/L (137-145)
--- NOTE | 2022-06-22 14:27 | P.PN ---
Subjective Progress Note Date: 06/22/22 his is a pleasant 51-year-old gentleman with past medical history of TIA( with right-sided symptoms at that time), gastroesophageal reflux disease, CAD, [place], nicotine dependence, THC use, occasional alcohol use and multiple other medical issues presented to the ER with left-sided facial droop, slurred speech, left- sided weakness initially started the evening before bed. Reports he had been lifting weights in the afternoon prior , developed fatigue with some slurring of speech , developed mild left facial droop , and proceeded to lay down for nap .upon getting up to proceed to the bathroom,had difficulty standing maintaining balance with left leg and weakness of left arm. Denies nausea vomiting or diarrhea. Denies lightheadedness dizziness, blurred or double vision but did report a headache. Brain CT negative, no change. CTA of the brain reported negative, 50% stenosis at the origin of the left internal carotid artery and 25% right internal carotid artery. Echo reported Normal LV function. Afebrile, normal WBC, hypertensive, maintaining O2 sats in the high 90s on room air. Hematology, coagulation, chemistry panels unremarkable, hemoglobin A1c 6.3, troponin negative. Toxicology screen detected THC. Neurology consult in place, recommendations pending. June 22, 2022:Patient is reevaluated today for left-sided weakness and dysarthria.All symptoms are slightly improved.Vitals are stable. Patient afebrile. Oxygenation normal.Labs were essentially normal with the exception of a glucose of 184. And hemoglobinating when C is six. Three. TSH was normal. Neurology had seen the patient and was concerned of acute ischemic stroke. He has known hypertension hyperlipidemia corners in a previous CVA. He also smokes.MRI of the brain MRI of the brainShows scattered acute in subacute foci of micro infarct involving the predominantly right MCA territory as well as more confluence area in the right huff radiata. Nonspecific white matter changes likely secondary to small vessel ischemic disease. The cardiology consoled ordered by neurologies pending for MARCO. Objective - Vital Signs Vital signs: Vital Signs Temp 98.0 F 06/22/22 12:50 Pulse 80 06/22/22 12:50 Resp 18 06/22/22 12:50 BP 144/79 06/22/22 12:50 Pulse Ox 99 06/22/22 12:50 FiO2 Intake & Output 06/21/22 06/22/22 06/22/22 18:59 06:59 18:59 Intake Total 518 540 240 Output Total 700 200 Balance -182 540 40 Weight 99.79 kg Intake: Oral 518 540 240 Output: Urine 700 200 Other: Voiding Method Urinal Urinal - Exam GENERAL: Patient sitting in the chair in his room.no acute distress, speech fluent and clear, comprehension appears intact HEENT: Mild left facial droop.improved from 1 day ago NECK: No JVD. No thyroid enlargement. No LNs CARDIOVASCULAR: S1, S2 regular.. No murmur RESPIRATION: Breath sounds diminished in the bases. No rhonchi or crackles. No bronchial breathing. ABDOMEN: Soft, nontender . No guarding. no masses palpable. No ascites, No hepatosplenomegaly.Bowel sounds heard. LEGS: No edema. no swelling PSYCHIATRY: Alert and oriented X3, mood and affect normal. NERVOUS SYSTEM: Cranial N 2-12 grossly normal. Left pronator drift, otherwise strength and sensation grossly intact.. Skin: Warm and dry, no rash - Labs CBC & Chem 7: 06/22/22 08:55 06/22/22 08:55 Labs: Abnormal Lab Results - Last 24 Hours (Table) 06/21/22 06/21/22 06/22/22 Range/Units 06:26 16:12 08:55 Sodium 136 L (137-145) mmol/L Glucose 184 H (74-99) mg/dL Hemoglobin A1c 6.3 H (0.0-6.0) % U Marijuana (THC) Screen Detected H (NotDetected) Assessment and Plan (1) Hemiplegia affecting left nondominant side Current Visit: Yes Status: Acute Code(s): G81.94 - HEMIPLEGIA, UNSPECIFIED AFFECTING LEFT NONDOMINANT SIDE SNOMED Code(s): 531592165838715 (2) Essential (primary) hypertension Current Visit: Yes Status: Acute Code(s): I10 - ESSENTIAL (PRIMARY) HYPERTENSION SNOMED Code(s): 93763853 (3) Mixed hyperlipidemia Current Visit: Yes Status: Acute Code(s): E78.2 - MIXED HYPERLIPIDEMIA SNOMED Code(s): 190189205 (4) Type 2 diabetes mellitus without complications Current Visit: Yes Status: Acute Code(s): E11.9 - TYPE 2 DIABETES MELLITUS WITHOUT COMPLICATIONS SNOMED Code(s): 859550146 (5) Tobacco use Current Visit: Yes Status: Acute Code(s): Z72.0 - TOBACCO USE SNOMED Code(s): 200893312 (6) Coronary artery disease involving [place] coronary artery Current Visit: Yes Status: Acute Code(s): I25.10 - ATHSCL HEART DISEASE OF [place] CORONARY ARTERY W/O ANG PCTRS SNOMED Code(s): 465481745 (7) H/O heart artery stent Current Visit: Yes Status: Acute Code(s): Z95.5 - PRESENCE OF CORONARY ANGIOPLASTY IMPLANT AND GRAFT SNOMED Code(s): 222713221 (8) Cerebrovascular accident (CVA) Current Visit: Yes Status: Acute Code(s): I63.9 - CEREBRAL INFARCTION, UNSPECIFIED SNOMED Code(s): 267761703 Plan: Weather in cardiology in the [facility] start him on Metformin and Possibly an SLGT2 medication.Accu checks AC HS, Hi Madeline scale, continue PTOT speech therapy Continue aspirin is ordered, Continue sub queue heparin metoprolol come out for thiazide, clopidogrel, Ilan pretty one repeat labs in the AM He'll be r eevaluate in the next 24 hours
--- NOTE | 2022-06-22 15:01 | P.PN ---
Subjective Progress Note Date: 06/22/22 Patient was seen for a follow-up. Patient states he is feeling slightly better. Patient's was also present. She states that she has noticed that patient sometimes zones out. It happened twice today, and numerous times yesterday. However he can be redirected within a second. No seizures. Objective - Vital Signs Vital signs: Vital Signs Temp 98.0 F 06/22/22 12:50 Pulse 80 06/22/22 12:50 Resp 18 06/22/22 12:50 BP 144/79 06/22/22 12:50 Pulse Ox 99 06/22/22 12:50 FiO2 Intake & Output 06/21/22 06/22/22 06/22/22 18:59 06:59 18:59 Intake Total 518 540 240 Output Total 700 200 Balance -182 540 40 Weight 99.79 kg Intake: Oral 518 540 240 Output: Urine 700 200 Other: Voiding Method Urinal Urinal - Exam Patient is a middle aged male, very pleasant, in no acute distress. Patient is alert awake oriented to time place and person. Speech is very mildly dysarthric but no aphasia and language functions are normal. Patient can name and repeat very well. Attention, concentration and fund of knowledge is a dequate. On cranial nerve examination, pupils are equal, round and reacting to light, visual petit are full on confrontation, with no visual neglect on double simultaneous stimulation. His extraocular muscles are intact with no nystagmus. He has left facial weakness, central type. His tongue protrudes to the midline. Palatal elevation and sensation normal, hearing and shoulder shrug normal, facial sensation normal. Shoulder shrug normal. On muscle strength testing, there is left pronation with very minimal drift and the strength is normal in arms and legs distally and proximally, except left hip flexion 5-4+, rest were all normal. 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 Deep tendon reflexes are (right/left biceps 2+/2, brachioradialis 2+/1+, knees 3/3, ankle 1/4 and plantars are upgoing bilaterally. Sensory to touch is equal with no neglect on double simultaneous stimulation. Cerebellar function showed no ataxia for alrdby-ei-vxwu testing. Tone and bulk of muscles normal. Gait deferred. On general examination, there is no carotid bruit or murmur, S1-S2 audible. Abdomen is soft nontender. No organomegaly, bowel sounds present. Chest is clear. Peripheral pulses are present. No edema. - Labs CBC & Chem 7: 06/22/22 08:55 06/22/22 08:55 Labs: Abnormal Lab Results - Last 24 Hours (Table) 06/21/22 06/21/22 06/22/22 Range/Units 06:26 16:12 08:55 Sodium 136 L (137-145) mmol/L Glucose 184 H (74-99) mg/dL Hemoglobin A1c 6.3 H (0.0-6.0) % U Marijuana (THC) Screen Detected H (NotDetected) Assessment and Plan Assessment: * Acute ischemic stroke , multiple small areas of infarction involving right MCA vascular territory. Clinically patient has mild dysarthria and mild left hemiparesis. His NIH stroke scale remains at 3 related to left facial droop, left arm drift and mild dysarthria. * Hypertension * Hyperlipidemia * Prediabetes. A1c 6.3. * Coronary artery disease * History of previous CVA with no residual deficits. * Tobacco use * Marijuana use. Plan: * Continue Plavix 75 mg daily and aspirin 81 mg daily for 21 days. Thereafter stop aspirin and continue Plavix indefinitely. * MRI of the brain revealed scattered acute/subacute foci of microinfarcts involving the predominantly right MCA territory as well as a more confluent areas within the right huff radiata. Small vessel disease. I personally reviewed MRI, agreed with the findings. Also reviewed MRI films with the patient's family. * Fasting lipid panel pending, hemoglobin A1c 6.3, suggestive of borderline diabetes. Recommend dietary modification, healthy lifestyles. Recheck A1c in 6 months. * CTA of head and neck revealed 50% stenosis of the left ICA and 25% stenosis of the right ICA. * Carotid Doppler showed no significant stenosis. Antegrade flow in both vertebral arteries. * 2-D echo revealed normal left ventricular systolic function. Normal size aortic root. EF is 60-65%. Borderline left ventricular hypertrophy. Normal left atrial size. We will consult cardiology for possible MARCO, as the stroke appears embolic in nature. Patient probably will benefit from 30 day event monitor rule out PAF. * Telemetry monitoring so far showing sinus rhythm, with sinus bradycardia in the 50s. Some couplets, PACs and PVCs. No other arrhythmia. * PT OT, speech therapy * Close neuro checks * DVT prophylaxis: Continue Heparin 5000 units subcu every 12 hours. * Strongly recommended tobacco cessation.
[2022-06-22 15:52] LABS: HDL Cholesterol 36.7 mg/dL (40.00-60.00)
[2022-06-22 16:09] LABS: Chol/HDL Ratio 8.01 Ratio
[2022-06-22 17:10] LABS: Glucose,Whole Blood 96 mg/dL (70-110)
[2022-06-22] MEDS: INSULIN ASPART (NovoLOG) 100 UNIT/ML VIAL SQ SCH ×3 (17:15→20:36)
[2022-06-22] MEDS: metFORMIN 500 MG TAB PO SCH (17:15)
[2022-06-22 20:07] LABS: Glucose,Whole Blood 103 mg/dL (70-110)
[2022-06-22] MEDS ORDERED: ATORVASTATIN 80 MG TAB PO SCH (21:00)
[2022-06-23 06:17] LABS: Glucose,Whole Blood 132 mg/dL (70-110)
[2022-06-23] MEDS: INSULIN ASPART (NovoLOG) 100 UNIT/ML VIAL SQ SCH ×2 (06:33→13:45)
[2022-06-23] MEDS: PANTOPRAZOLE 40 MG TABLET PO SCH (06:34)
[2022-06-23] MEDS: metFORMIN 500 MG TAB PO SCH (06:34)
[2022-06-23 08:06] LABS: Basophils # (A) 0.1 k/uL (0-0.2); Basophils % (A) 1 %; Eosinophils # (A) 0.1 k/uL (0-0.7); Eosinophils % (A) 1 %; HCT 50.6 % (39.0-53.0); HGB 17.2 gm/dL (13.0-17.5); Lymphocytes # (A) 2.1 k/uL (1.0-4.8); Lymphocytes % (A) 29 %; MCH 29.1 pg (25.0-35.0); MCV 85.6 fL (80.0-100.0); Monocytes # (A) 0.5 k/uL (0-1.0); Monocytes % (A) 7 %; Neutrophils # (A) 4.3 k/uL (1.3-7.7); Neutrophils % (A) 60 %; Platelet Count 320 k/uL (150-450); RBC 5.91 m/uL (4.30-5.90); RDW 12.9 % (11.5-15.5); WBC 7.2 k/uL (3.8-10.6)
[2022-06-23 09:04] LABS: African American GFR (CKD) >90 (>60 ml/min/1.73 sqM); Anion Gap 10 mmol/L; Blood Urea Nitrogen 13 mg/dL (9-20); Calcium 9.9 mg/dL (8.4-10.2); Carbon Dioxide 29 mmol/L (22-30); Chloride 99 mmol/L (98-107); Glucose 120 mg/dL (74-99); Non-African American GFR(CKD) 82 (>60 ml/min/1.73 sqM); Potassium 4.6 mmol/L (3.5-5.1); Sodium 138 mmol/L (137-145)
--- NOTE | 2022-06-23 10:00 | P.DS ---
Providers Date of admission: 06/22/22 10:56 Expected date of discharge: 06/23/22 Attending physician: Paulo Rowell Consults: 06/21/22 08:19 Consult Physician Urgent Consulting Provider: Deo Otto Consult Reason/Comments: CVA Do you want consulting provider notified?: Yes 06/22/22 11:51 Consult Physician Routine Consulting Provider: Gino Gutierrez Consult Reason/Comments: Embolic CVA, R/O PFO, Consider MARCO Do you want consulting provider notified?: Yes Primary care physician: Paulo Rowell - Discharge Diagnosis(es) (1) Cerebrovascular accident (CVA) Current Visit: Yes Status: Acute (2) Hemiplegia affecting left nondominant side Current Visit: Yes Status: Acute (3) Essential (primary) hypertension Current Visit: Yes Status: Acute (4) Mixed hyperlipidemia Current Visit: Yes Status: Acute (5) Type 2 diabetes mellitus without complications Current Visit: Yes Status: Acute (6) Tobacco use Current Visit: Yes Status: Acute (7) Coronary artery disease involving [place] coronary artery Current Visit: Yes Status: Acute (8) H/O heart artery stent Current Visit: Yes Status: Acute Hospital Course: his is a pleasant 51-year-old gentleman with past medical history of TIA( with right-sided symptoms at that time), gastroesophageal reflux disease, CAD, ID, nicotine dependence, THC use, occasional alcohol use and multiple other medical issues presented to the ER with left-sided facial droop, slurred speech, left- sided weakness initially started the evening before bed. Reports he had been lifting weights in the afternoon prior , developed fatigue with some slurring of speech , developed mild left facial droop , and proceeded to lay down for nap .upon getting up to proceed to the bathroom,had difficulty standing maintaining balance with left leg and weakness of left arm. Denies nausea vomiting or diarrhea. Denies lightheadedness dizziness, blurred or double vision but did report a headache. Brain CT negative, no change. CTA of the brain reported negative, 50% stenosis at the origin of the left internal carotid artery and 25% right internal carotid artery. Echo reported Normal LV function. Afebrile, normal WBC, hypertensive, maintaining O2 sats in the high 90s on room air. Hematology, coagulation, chemistry panels unremarkable, hemoglobin A1c 6.3, troponin negative. Toxicology screen detected THC. Neurology consult in place, recommendations pending. June 22, 2022:Patient is reevaluated today for left-sided weakness and dysarthria.All symptoms are slightly improved.Vitals are stable. Patient afebrile. Oxygenation normal.Labs were essentially normal with the exception of a glucose of 184. And hemoglobinating when C is six. Three. TSH was normal. Neurology had seen the patient and was concerned of acute ischemic stroke. He has known hypertension hyperlipidemia corners in a previous CVA. He also smokes.MRI of the brain MRI of the brainShows scattered acute in subacute foci of micro infarct involving the predominantly right MCA territory as well as more confluence area in the right huff radiata. Nonspecific white matter changes likely secondary to small vessel ischemic disease. The cardiology consoled ordered by neurologies pending for MARCO. 06/23/2022: Patient undergo a MARCO today. If this is normal, we'll have cardiology place an event monitor and he will be discharged home as he is stable and cleared by neurology. Patient Condition at Discharge: Fair Plan - Discharge Summary Discharge Rx Participant: No New Discharge Prescriptions: New Atorvastatin [Lipitor] 80 mg PO HS #90 tab Clopidogrel [Plavix] 75 mg PO DAILY #21 tab Aspirin 325 mg PO DAILY #0 tab metFORMIN HCL [Glucophage] 500 mg PO BID-W/MEALS #180 tab Continue Metoprolol Tartrate [Lopressor] 25 mg PO BID Olmesartan/Hydrochlorothiazide [Benicar Hct 40-12.5 mg Tablet] 1 tab PO DAILY Lansoprazole [Prevacid] 15 mg PO DAILY Aspirin 325 mg PO DAILY Discharge Medication List Metoprolol Tartrate [Lopressor] 25 mg PO BID 01/07/19 [History] Olmesartan/Hydrochlorothiazide [Benicar Hct 40-12.5 mg Tablet] 1 tab PO DAILY 01/07/19 [History] Lansoprazole [Prevacid] 15 mg PO DAILY 05/20/20 [History] Aspirin 325 mg PO DAILY 06/21/22 [History] Aspirin 325 mg PO DAILY #0 tab 06/23/22 [Rx] Atorvastatin [Lipitor] 80 mg PO HS #90 tab 06/23/22 [Rx] Clopidogrel [Plavix] 75 mg PO DAILY #21 tab 06/23/22 [Rx] metFORMIN HCL [Glucophage] 500 mg PO BID-W/MEALS #180 tab 06/23/22 [Rx] Follow up Appointment(s)/Referral(s): Paulo Rowell MD [Primary Care Provider] - 1-2 days Discharge Disposition: HOME SELF-CARE
[2022-06-23] MEDS ORDERED: fentaNYL (PF) 50 MCG/ML 2 ML AMP ONE (10:28)
[2022-06-23] MEDS ORDERED: fentaNYL (PF) 50 MCG/ML 2 ML AMP IV ONE (10:55)
[2022-06-23] MEDS ORDERED: BENZOCAINE SPRAY 1 CAN TOPICAL ONE (10:55)
[2022-06-23] MEDS ORDERED: MIDAZOLAM 2 MG/2 ML VIAL IV ONE (10:55)
[2022-06-23 11:00] VITALS: RESP 16
[2022-06-23] MEDS ORDERED: SODIUM CHLORIDE 0.9% 500 ML 500 ML IV ONE (11:02)
--- NOTE | 2022-06-23 11:24 | P.PN ---
Subjective Progress Note Date: 06/23/22 Patient was seen for a follow-up. Patient states he is feeling better today than yesterday. No new neurological symptoms. Objective - Vital Signs Vital signs: Vital Signs Temp 97.7 F 06/23/22 08:19 Pulse 77 06/23/22 08:19 Resp 18 06/23/22 08:19 BP 127/77 06/23/22 08:19 Pulse Ox 97 06/23/22 08:19 FiO2 Intake & Output 06/22/22 06/23/22 06/23/22 18:59 06:59 18:59 Intake Total 720 250 Output Total 400 Balance 320 250 Intake: Oral 720 250 Output: Urine 400 Other: Voiding Method Urinal Urinal Urinal - Exam Patient is a middle aged male, very pleasant, in no acute distress. Patient is alert awake oriented to time place and person. Speech is almost back to normal, with no obvious dysarthria. No aphasia and language functions are normal. Patient can name and repeat very well. Attention, concentration and f und of knowledge is adequate. On cranial nerve examination, pupils are equal, round and reacting to light, visual petit are full on confrontation, with no visual neglect on double simultaneous stimulation. His extraocular muscles are intact with no nystagmus. He has left facial weakness, central type, better than yesterday. His tongue protrudes to the midline. Palatal elevation and sensation normal, hearing and shoulder shrug normal, facial sensation normal. Shoulder shrug normal. On muscle strength testing, there is left pronation with no drift and the strength is normal in arms and legs distally and proximally, except left hip flexion 5-4+, rest were all normal. 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 Deep tendon reflexes are (right/left biceps 2+/2, brachioradialis 2+/1+, knees 3/3, ankle 1/4 and plantars are upgoing bilaterally. Sensory to touch is equal with no neglect on double simultaneous stimulation. Cerebellar function showed no ataxia for sjahnn-pe-bbqb testing. Tone and bulk of muscles normal. Rapid finger tapping much slow on the left. Rapid supination and pronation, also slow on the left. Gait deferred. Patient states he feels quite steady while going to the bathroom. On general examination, there is no carotid bruit or murmur, S1-S2 audible. Abdomen is soft nontender. No organomegaly, bowel sounds present. Chest is clear. Peripheral pulses are present. No edema. - Labs CBC & Chem 7: 06/23/22 07:41 06/23/22 07:41 Labs: Abnormal Lab Results - Last 24 Hours (Table) 06/22/22 06/22/22 06/23/22 Range/Units 08:55 08:55 06:15 RBC (4.30-5.90) m/uL Sodium 136 L (137-145) mmol/L Glucose 184 H (74-99) mg/dL POC Glucose (mg/dL) 132 H (70-110) mg/dL Triglycerides 561.00 H (0.00-149.00) mg/dL Cholesterol 294.00 H (0.00-200.00) mg/dL LDL Cholesterol Direct 164.00 H (0.00-129.00) mg/dL HDL Cholesterol 36.70 L (40.00-60.00) mg/dL 06/23/22 06/23/22 Range/Units 07:41 07:41 RBC 5.91 H (4.30-5.90) m/uL Sodium (137-145) mmol/L Glucose 120 H (74-99) mg/dL POC Glucose (mg/dL) (70-110) mg/dL Triglycerides (0.00-149.00) mg/dL Cholesterol (0.00-200.00) mg/dL LDL Cholesterol Direct (0.00-129.00) mg/dL HDL Cholesterol (40.00-60.00) mg/dL Assessment and Plan Assessment: * Acute ischemic stroke , multiple small areas of infarction involving right MCA vascular territory. Clinically patient has mild dysarthria and mild left hemiparesis. His NIH stroke scale today is 2, related to left facial droop, left arm drift. Dysarthria seems to have resolved. * Hypertension * Hyperlipidemia * Prediabetes. A1c 6.3. * Coronary artery disease * History of previous CVA with no residual deficits. * Tobacco use * Marijuana use. Plan: * Continue Plavix 75 mg daily and aspirin 81 mg daily for 21 days. Thereafter stop aspirin and continue Plavix indefinitely. * MRI of the brain revealed scattered acute/subacute foci of microinfarcts involving the predominantly right MCA territory as well as a more confluent areas within the right huff radiata. Small vessel disease. I personally reviewed MRI, agreed with the findings. Also reviewed MRI films with the patient's family. * Fasting lipid panel with total cholesterol 294, LDL 164, HDL 36 and triglyc erides 561. Continue high-dose statins with Lipitor 80 mg daily. * Hemoglobin A1c 6.3, suggestive of borderline diabetes. Recommend dietary modification, healthy lifestyles. Recheck A1c in 6 months. * CTA of head and neck revealed 50% stenosis of the left ICA and 25% stenosis of the right ICA. * Carotid Doppler showed no significant stenosis. Antegrade flow in both v ertebral arteries. * 2-D echo revealed normal left ventricular systolic function. Normal size aort ic root. EF is 60-65%. Borderline left ventricular hypertrophy. Normal left atrial size. * Cardiology input appreciated. Patient undergoing MARCO today. * Also recommended a 30 day event monitor rule out PAF. * Telemetry monitoring in the last 24 hours showing sinus rhythm in the 80s. No other arrhythmia. * PT OT, speech therapy. OT has recommended outpatient PT. * DVT prophylaxis: Continue Heparin 5000 units subcu every 12 hours. * Strongly recommended tobacco cessation. * Neurologically clear, if the MARCO comes back negative. MARCO showed no intracardiac thrombus. No evidence of shunting across the interatrial septum. No evidence of eero-kr-hxkgp shunt by color flow Doppler or ddxth-af-fmpf shunt by agitated saline contrast study.
[2022-06-23 11:45] LABS: Glucose,Whole Blood 140 mg/dL (70-110)
[2022-06-23] MEDS: hydroCHLOROthiazide 12.5 MG CAP PO SCH (12:04)
[2022-06-23] MEDS: CLOPIDOGREL 75 MG TAB PO SCH (12:05)
[2022-06-23] MEDS: METOPROLOL TARTRATE 25 MG TAB PO SCH (12:05)
[2022-06-23] MEDS: HEPARIN SODIUM,PORCINE/PF 5,000 UNIT/0.5 ML SYRINGE SQ SCH (12:08)
[2022-06-23 14:32] VITALS: BP 133/87; PULSE 80; TEMP 98
--- NOTE | 2022-06-24 05:36 | ECHOT ---
TRANSESOPHAGEAL ECHOCARDIOGRAM INDICATION: CVA to rule out cardiac source of thromboembolic phenomenon. PROCEDURE NOTE: After obtaining informed consent, transesophageal echocardiogram was performed in left lateral position using an Omniplane probe. Local and IV sedation were obtained using Xylocaine spray, 2 mg of Versed, and 25 mcg of fentanyl. The patient tolerated the procedure well without any obvious immediate complications. The patient received moderate conscious sedation. Total sedation time was 10 minutes. FINDINGS: 1. There is no intracardiac thrombus within the left atrium, right atrium, right ventricle, or left ventricle. There is no intracardiac thrombus within the left atrial appendage. 2. Left atrium, right atrium, right ventricle, and left ventricle have normal size and systolic function. 3. Mitral valve is anatomically normal. There is trace mitral regurgitation noted. 4. Aortic valve is a 3-leaflet valve. There is no evidence of aortic stenosis or regurgitation. 5. Aortic root measures normally. 6. Tricuspid valve appears normal. 7. Interatrial septum. There is no evidence of bbgt-vi-wolew shunt by color-flow Doppler or yezqj-qp-dhuk shunt by agitated saline contrast study. CONCLUSION: 1. No intracardiac thrombus. 2. No evidence of shunting across the interatrial septum. PLAN: The patient will continue with the further workup. MMODL / IJN: [id number] /
[2022-06-24] MEDS ORDERED: ASPIRIN 81 MG PO SCH (09:00)
== END 2022-06-23 14:30 | disposition home or self-care (01) | DRG 65 ==
LOC: EC 06:14 → 3SCARD 06:33 → OBSVTOIN 06-22 10:56
PROVIDERS: ADMIT Family Medicine; ATTEND Family Medicine
PROC: B24BZZ4 Ultrasonography of Heart with Aorta, Transesophageal (ICD-10-PCS; principal; 2022-06-23 10:30)
DX: I63.411 Cerebral infarction due to embolism of right middle cerebral artery (principal); I69.354 Hemiplegia and hemiparesis following cerebral infarction affecting left non-dominant side; E11.9 Type 2 diabetes mellitus without complications; R47.1 Dysarthria and anarthria; R29.703 NIHSS score 3; I10 Essential (primary) hypertension; Z28.310 Unvaccinated for COVID-19; I65.23 Occlusion and stenosis of bilateral carotid arteries; I25.10 Atherosclerotic heart disease of native coronary artery without angina pectoris; E78.00 Pure hypercholesterolemia, unspecified; E78.2 Mixed hyperlipidemia; G47.30 Sleep apnea, unspecified; K21.9 Gastro-esophageal reflux disease without esophagitis; I25.2 Old myocardial infarction; E66.9 Obesity, unspecified; Z68.35 Body mass index [BMI] 35.0-35.9, adult; F17.210 Nicotine dependence, cigarettes, uncomplicated; Z71.6 Tobacco abuse counseling; Z79.82 Long term (current) use of aspirin; Z79.899 Other long term (current) drug therapy; Z95.5 Presence of coronary angioplasty implant and graft; Z87.19 Personal history of other diseases of the digestive system; W19.XXXA Unspecified fall, initial encounter; Y92.003 Bedroom of unspecified non-institutional (private) residence as the place of occurrence of the external cause; Z82.49 Family history of ischemic heart disease and other diseases of the circulatory system; Z80.9 Family history of malignant neoplasm, unspecified
CPT/HCPCS: 36415; 70450; 70496; 70498; 70551; 80048; 80053; 80061; 80306; 83036; 83721; 84443; 84484; 85025; 85610; 85730; 93005; 93270; 93306; 93312; 93320; 93325; 93880; 99291

== ENCOUNTER → 2023-03-07 | Outpatient (CLI) | payer OTHER ==
--- NOTE | 2023-03-07 13:31 | P.SLEEP ---
History of Present Illness H&P Date: 03/07/23 52-year-old male patient, referred to the sleep Center due to concerns of sleep apnea. The patient is morbidly obese with a BMI 38.8. The patient is known to have coronary artery disease and is already undergone previous coronary stenting. The patient is also known to have had a stroke with left-sided weakness and this occurred back in June 2022. Since then, the patient has quit smoking and the patient is gradually recovering and currently his ambulating without any assistance. There is an obvious concern for sleep apnea the patient has loud snoring, witnessed apneas, chronic fatigue and tiredness and sleepiness during the day and is a port score is at 17. His sleep is fragmented. He goes to bed at around 11 PM and he wakes up at 8 AM in the morning. He feels non-refreshed. He averages around 6-7 hours of sleep. Denies waking up choking or gasping for air. He starts sleeping on his back and ultimately hemostasis site. Is a nose breather. No nighttime seizures. No nighttime heartburn or chest pain or shortness of breath. He has gained weight in the order of 15 pounds over the past 10 years. 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 He does not drink alcohol. He quit smoking back in June 2022. No other new complaints otherwise for now. No Restasis in his lower extremities. No sleepwalking. No sleep talking. No heartburn. No palpitations. No anxiety or panic attacks. No depression. No issues with insomnia. No issues with depression. Review of Systems Constitutional: Reports daytime sleepiness, Reports fatigue, Reports weight gain Eyes: denies as per HPI, denies blurred vision, denies bulging eye, denies decreased vision, denies diplopia, denies discharge, denies dry eye, denies irritation, denies itching, denies pain, denies photophobia, denies loss of peripheral vision, denies loss of vision, denies tunnel vision/blind spots Ears: deny: decreased hearing, ear discharge, earache, tinnitus Ears, nose, mouth and throat: Reports as per HPI Breasts: absent: as per HPI, gynecomastia Cardiovascular: Reports as per HPI Respiratory: Reports snoring Gastrointestinal: Reports as per HPI Genitourinary: Reports as per HPI Musculoskeletal: Reports as per HPI Musculoskeletal: absent: ankle pain, ankle stiffness, ankle swelling Integumentary: Reports as per HPI Neurological: Reports weakness (Left-sided weakness following a stroke) Psychiatric: Reports as per HPI Endocrine: Reports as per HPI, Reports fatigue Hematologic/Lymphatic: Reports as per HPI Allergic/Immunologic: Reports as per HPI Past Medical History Past Medical History: Coronary Artery Disease (CAD), CVA/TIA, GERD/Reflux, Hyperlipidemia, Hypertension, Myocardial Infarction (MT), Sleep Apnea/CPAP/BIPAP Additional Past Medical History / Comment(s): TIA Last Myocardial Infarction Date:: 05/2018 History of Any Multi-Drug Resistant Organisms: None Reported Past Surgical History: Heart Catheterization With Stent, Hernia Repair Additional Past Surgical History / Comment(s): PCI with stents, bilateral inguinal hernia repairs, EGD, vasectomy, bilateral eye cataracts. Past Anesthesia/Blood Transfusion Reactions: Previous Problems w/ Anesthesia Additional Past Anesthesia/Blood Transfusion Reaction / Comment(s): pt states stopped breathing during egd, oxygen applied resolved Date of Last Stent Placement:: 05/2018 Past Psychological History: No Psychological Hx Reported Smoking Status: Current every day smoker - Past Family History Father Family Medical History: Vascular Disorder Additional Family Medical History / Comment(s): from circulation issues at the age of 63 Mother Family Medical History: Cancer Additional Family Medical History / Comment(s): from CA at the age of 58 Medications and Allergies Home Medications Medication Instructions Recorded Confirmed Type Metoprolol Tartrate [Lopressor] 25 mg PO BID 01/07/19 06/26/22 History Olmesartan/Hydrochlorothiazide 1 tab PO DAILY 01/07/19 06/26/22 History [Benicar Hct 40-12.5 mg Tablet] Lansoprazole [Prevacid] 15 mg PO DAILY 05/20/20 06/26/22 History Aspirin 325 mg PO DAILY #0 tab 06/23/22 06/26/22 Rx Atorvastatin [Lipitor] 80 mg PO HS #90 tab 06/23/22 06/26/22 Rx metFORMIN HCL [Glucophage] 500 mg PO BID-W/MEALS #180 tab 06/23/22 06/26/22 Rx Ticagrelor [Brilinta] 90 mg PO BID #60 tab 06/29/22 Rx Allergies Allergy/AdvReac Type Severity Reaction Status Date / Time No Known Allergies Allergy Verified 06/26/22 17:29 Physical Exam BP is 117/76, pulse is 86, respirations 16, temperature is 98.2, BMI 38.8, the size of the neck is 19 inches and the patient's Noonan score is at 17 Gen. appearance the patient is obese, comfortable, not in acute distress Head exam was generally normal. There was no scleral icterus or corneal arcus. Mucous membranes were moist. Neck was supple and without jugular venous distension, thyromegaly, or carotid bruits. Carotids were easily palpable bilaterally. There was no adenopathy. Mallampati class IV with significant crowding of the posterior oropharynx Lungs were clear to auscultation and percussion, and with normal diaphragmatic excursion. No wheezes or rales were noted. Cardiac exam revealed the PMI to be normally situated and sized. The rhythm was regular and no extrasystoles were noted during several minutes of auscultation. The first and second heart sounds were normal and physiologic splitting of the second heart sound was noted. There were no murmurs, rubs, clicks, or gallops. Abdominal exam revealed normal bowel sounds. The abdomen was soft, non-tender, and without masses, organomegaly, or appreciable enlargement of the abdominal aorta. Examination of the extremities revealed easily palpable radial, femoral and pedal pulses. There was no cyanosis, clubbing or edema. Examination of the skin revealed no evidence of significant rashes, suspicious appearing nevi or other concerning lesions. Neurologically, the patient is awake and alert and the patient does not have any focal neurological deficit. Cranial nerves are essentially intact. There is some residual left-sided weakness related to his previous stroke. Assessment and Plan Plan: Chronic hypersomnia with an Noonan score of 17. The patient has a high suspicion for obstructive sleep apnea including history of loud snoring, witnessed apneas, sleep fragmentation along with chronic fatigue and tiredness and sleepiness during the day. High suspicion for obstructive sleep apnea. Obesity BMI of 38.8 Loud snoring coronary artery disease with previous coronary stenting CVA with residual left-sided weakness Hypertension Hyperlipidemia Ex-smoker the patient quit smoking approximately 9 months ago Plan Encourage weight loss Proceed with screening polysomnogram with high clinical suspicion for obstructive sleep apnea The patient is committed to therapy if the diagnosis established We'll continue to follow Sleep Note - Sleep Note Sleep Note: Temperature: Pulse Rate: Respiratory Rate: Blood Pressure: SpO2: Height: Weight: BMI: Neck Circumference:
== END ==
LOC: SLEEP 12:58
PROVIDERS: ATTEND Internal Medicine Critical Care Medicine
DX: G47.33 Obstructive sleep apnea (adult) (pediatric) (principal); E66.9 Obesity, unspecified; Z68.38 Body mass index [BMI] 38.0-38.9, adult; I25.10 Atherosclerotic heart disease of native coronary artery without angina pectoris; Z86.73 Personal history of transient ischemic attack (TIA), and cerebral infarction without residual deficits; I10 Essential (primary) hypertension; Z99.89 Dependence on other enabling machines and devices; E78.5 Hyperlipidemia, unspecified; F17.200 Nicotine dependence, unspecified, uncomplicated; Z79.84 Long term (current) use of oral hypoglycemic drugs; Z79.82 Long term (current) use of aspirin; Z79.899 Other long term (current) drug therapy
CPT/HCPCS: 99211

== ENCOUNTER → 2023-09-19 | Outpatient (CLI) | payer OTHER ==
--- NOTE | 2023-09-19 16:22 | P.PN ---
Progress Note - Text Progress Note Date: 09/19/23 This is a very pleasant 52-year-old male patient diagnosed having severe symptomatic sleep apnea, predominantly obstructive with a central component. The patient had an AHI of 58 and a central apnea index of 19. Based on that, the patient was given a CPAP titration. During the CPAP titration, it was noted that the patient was developing some central events at the higher CPAP pressures. As such, I started him on CPAP pressure of 97 use of water. Immediately, the patient responded and the patient is reporting marked improvement in his symptoms of daytime hypersomnia and sleepiness while being treated with CPAP therapy. He reports marked improvement in his daytime alertness and he is extremely compliant. Based on the compliance data collected on the machine, data between 08/19/2023 and 09/17/2023 shows a compliancy of 97% and the patient achieved more than 4 hours of usage 83% of the time and the patient has been averaging around 5 hours and 33 minutes of CPAP use per night. His AHI is still elevated at 22. There are no central events noted. The patient is using an Airfit F20 fullface mask. Is also looking for alternative mask. His weight has remained stable for now. No other complaints otherwise for now Review of systems. A 14 point review of system was done and the patient is improved and his current [place] score is down to 8. No major hypersomnia or sleepiness during the day. He has no other complaints. Positive findings were mentioned above in history of present illness BP is 148/83 with a pulse of 80 and respiration of 16 and the weight is 252 with a temperature of 97.9 The patient appeared well nourished and normally developed. Vital signs as documented. Head exam is unremarkable. No scleral icterus or corneal arcus noted. Neck is without jugular venous distension, thyromegaly, or carotid bruits. Carotid upstrokes are brisk bilaterally. Lungs are clear to auscultation and percussion. Cardiac exam reveals the PMI to be normally sized and situated. Rhythm is regular. First and second heart sounds normal. No murmurs, rubs or gallops. Abdominal exam reveals normal bowel sounds, no masses, no organomegaly and no aortic enlargement. Extremities are nonedematous and both femoral and pedal pulses are normal. Assessment Severe symptomatic sleep apnea and combination of obstructive and central. The patient has an AHI of 58 and a central apnea index of 19. Currently on CPAP pressure of 9 cm of water. The patient has encounter significant clinical improvement. Nevertheless, he has some residual obstructive events without emergence of central apneas. Hypersomnia, improved Obesity Coronary artery disease Hypertension Hyperlipidemia Previous history of CVA/TIA Plan I discussed with him the findings. I am also aware that the patient is having some obstructive events while being on CPAP therapy without any central events. Based on that, and gradually going to increase the CPAP pressure while closely monitoring the central events. His central apnea index is currently in 1. As s uch, increase his CPAP pressure up to 10 cm of water. I also switched him to an air fit F30 medium-size fullface mask and this was given to him on a trial basis. He may ultimately be switched to an air touch. I'm going to see him back in 2 months time for a follow-up and make further adjustments. In general, his treatment is very successful.
== END ==
LOC: 3 N SLEEP 15:40
PROVIDERS: ATTEND Internal Medicine Critical Care Medicine
DX: G47.33 Obstructive sleep apnea (adult) (pediatric) (principal); G47.37 Central sleep apnea in conditions classified elsewhere; E66.9 Obesity, unspecified; E78.5 Hyperlipidemia, unspecified; G47.10 Hypersomnia, unspecified; F17.200 Nicotine dependence, unspecified, uncomplicated; I10 Essential (primary) hypertension; I25.10 Atherosclerotic heart disease of native coronary artery without angina pectoris; Z86.73 Personal history of transient ischemic attack (TIA), and cerebral infarction without residual deficits; Z79.899 Other long term (current) drug therapy; Z79.82 Long term (current) use of aspirin
CPT/HCPCS: 99212

== ENCOUNTER 2023-10-10 21:45 | Emergency (ER) | payer OTHER ==
--- NOTE | 2023-10-10 22:09 | ED ---
General Adult HPI - General Source: patient Mode of arrival: ambulatory Limitations: no limitations <Kaycee Ramírez - Last Filed: 10/10/23 22:08> - General Source: patient, RN notes reviewed Mode of arrival: ambulatory Limitations: no limitations <Rhoda Yeager - Last Filed: 10/11/23 03:29> - General Chief complaint: Back Pain/Injury Stated complaint: Jose pain, Nausea Time Seen by Provider: 10/10/23 22:08 - History of Present Illness Initial comments: 53-year-old male presenting with chief complaint of pain between the shoulder blades, left shoulder pain, nausea, and weakness. States that these symptoms feel similar to previous AK. Denies chest pain or difficulty breathing (Kaycee Ramírez) This is a 53-year-old male who presents to the emergency department for back pain, nausea, and abdominal pain. States that jail through eating Thanksgiving dinner, he developed pain in his mid back and shoulders, which started to go up the neck. He then started to feel queasy. Symptoms improved, but have been occurring intermittently since. Denies any chest pain or shortness of breath. His concern is that the symptoms feel similar to his prior AK in 2018. He does follow with Dr. Root, cardiology. States that he did just have an appointment with him and was told to be doing well. (Rhoda Yeager) - Related Data Home Medications Medication Instructions Recorded Confirmed Metoprolol Tartrate [Lopressor] 25 mg PO BID 01/07/19 06/26/22 Olmesartan/Hydrochlorothiazide 1 tab PO DAILY 01/07/19 06/26/22 [Benicar Hct 40-12.5 mg Tablet] Lansoprazole [Prevacid] 15 mg PO DAILY 05/20/20 06/26/22 Previous Rx's Medication Instructions Recorded Aspirin 325 mg PO DAILY #0 tab 06/23/22 Atorvastatin [Lipitor] 80 mg PO HS #90 tab 06/23/22 metFORMIN HCL [Glucophage] 500 mg PO BID-W/MEALS #180 tab 06/23/22 Ticagrelor [Brilinta] 90 mg PO BID #60 tab 06/29/22 methocarbamoL [Robaxin-750] 1,500 mg PO TID PRN #30 tab 10/11/23 Allergies Allergy/AdvReac Type Severity Reaction Status Date / Time No Known Allergies Allergy Verified 10/10/23 22:08 Review of Systems ROS Other: All systems not noted in ROS Statement are negative. <Kaycee Ramírez - Last Filed: 10/10/23 22:08> ROS Other: All systems not noted in ROS Statement are negative. <Rhoda Yeager - Last Filed: 10/11/23 03:29> ROS Statement: Those systems with pertinent positive or pertinent negative responses have been documented in the HPI. Past Medical History Past Medical History: Coronary Artery Disease (CAD), CVA/TIA, GERD/Reflux, Hyperlipidemia, Hypertension, Myocardial Infarction (AK), Sleep Apnea/CPAP/BIPAP Additional Past Medical History / Comment(s): TIA Last Myocardial Infarction Date:: 05/2018 History of Any Multi-Drug Resistant Organisms: None Reported Past Surgical History: Heart Catheterization With Stent, Hernia Repair Additional Past Surgical History / Comment(s): PCI with stents, bilateral inguinal hernia repairs, EGD, vasectomy, bilateral eye cataracts. Past Anesthesia/Blood Transfusion Reactions: Previous Problems w/ Anesthesia Additional Past Anesthesia/Blood Transfusion Reaction / Comment(s): pt states stopped breathing during egd, oxygen applied resolved Date of Last Stent Placement:: 05/2018 Past Psychological History: No Psychological Hx Reported Smoking Status: Current every day smoker - Past Family History Father Family Medical History: Vascular Disorder Additional Family Medical History / Comment(s): from circulation issues at the age of 63 Mother Family Medical History: Cancer Additional Family Medical History / Comment(s): from CA at the age of 58 <Kaycee Ramírez - Last Filed: 10/10/23 22:08> General Exam <Kaycee Ramírez - Last Filed: 10/10/23 22:08> Limitations: no limitations General appearance: alert, in no apparent distress Head exam: Present: atraumatic, normocephalic, normal inspection Respiratory exam: Present: normal lung sounds bilaterally. Absent: respiratory distress, wheezes, rales, rhonchi, stridor Cardiovascular Exam: Present: regular rate, normal rhythm, normal heart sounds. Absent: systolic murmur, diastolic murmur, rubs, gallop, clicks GI/Abdominal exam: Present: soft, hyperactive bowel sounds. Absent: distended, tenderness, guarding, rebound, rigid Back exam: Present: normal inspection, full ROM. Absent: tenderness Neurological exam: Present: alert, oriented X3, CN II-XII intact Psychiatric exam: Present: normal affect, normal mood Skin exam: Present: warm, dry, intact, normal color. Absent: rash <Rhoda Yeager - Last Filed: 10/11/23 03:29> - General Exam Comments Initial Comments: Visual Physical Exam Vital signs reviewed General: Well-appearing, nontoxic, no acute distress. Head: Normocephalic, atraumatic Eyes: PERRLA, EOMI ENT: Airway patent Chest: Nonlabored breathing Skin: No visual rash, normal skin tone Neuro: Alert and oriented 3 Musculoskeletal: No gross abnormalities (Kaycee Ramírez) Course Vital Signs 10/10/23 10/11/23 22:03 02:08 Temperature 98.0 F Pulse Rate 88 80 Respiratory 20 18 Rate Blood Pressure 142/90 121/85 O2 Sat by Pulse 93 L 98 Oximetry Medical Decision Making - Lab Data Result diagrams: 10/10/23 23:15 10/10/23 23:15 - Radiology Data Radiology results: report reviewed, image reviewed <Rhoda Yeager - Last Filed: 10/11/23 03:29> - Medical Decision Making This is a 53-year-old male who presents to the emergency department for back pain and nausea. Was pt. sent in by a medical professional or institution? @ -No Did you speak to anyone other than the patient for history? @ -No Did you review nursing and triage notes? @ -Yes, and I agree, it is accurate with regards to the patient's symptoms. Were old charts reviewed? @ -No Differential Diagnosis? @ -Differential Back Pain: Strain, zoster, cauda equina syndrome, epidural abscess, vertebral osteomyelitis, discitis, fracture, subluxation, disc herniation, DJD, spinal stenosis, dissection, AAA, pancreatitis, peptic ulcer disease, pyelonephritis, kidney stone, this is not meant to be an all-inclusive list. EKG interpreted by me (3pts min.)? @ -EKG interpreted by me demonstrating the following: Sinus rhythm. Ventricular rate 84 beats per minute, IN interval 153 ms, QRS duration 99 ms, QTC 440 ms. X-rays interpreted by me (1pt min.)? @ -Chest x-ray obtained, my interpretation identifies no localized consolidations or infiltrates. CT interpreted by me (1pt min.)? @ -Not obtained U/S interpreted by me (1pt. min.)? @ -Not obtained What testing was considered but not performed? (CT, X-rays, U/S, labs)? Why? @ -None What meds were considered but not given? Why? @ -None Did you discuss the management of the patient with other professionals? @ -No Did you reconcile home meds? @ -No Was smoking cessation discussed for >3mins.? @ -No Was critical care preformed (if so, how long)? @ -No Were there social determinants of health that impacted care today? How? ( Homelessness, low income, unemployed, alcoholism, drug addiction, transportation, low edu. Level, literacy, decrease access to med. care, intermediate, rehab)? @ -No Was there de-escalation of care discussed even if they declined? (Discuss DNR or withdrawal of care, Hospice)? @ -No What co-morbidities impacted this encounter? (DM, HTN, Smoking, COPD, CAD, Cancer, CVA, Hep., AIDS, mental health diagnosis, sleep apnea, morbid obesity)? @ -CAD, HLD, HTN, GERD Was patient admitted / discharged? @ -Discharged. Lab work obtained and found to be nonactionable. While sympto ms have been present for 5-6 days, we did get 2 troponins, which were both negative. Chest x-ray revealed no acute process. Patient did test positive for COVID-19, which we discussed may be the cause of his symptoms. He was treated with IV fluids, Norflex, Toradol, and famotidine, which he did find beneficial. He was given a prescription for Robaxin for any additional back pain and tightness. We also discussed alternating with ibuprofen and Tylenol as needed for pain relief. Patient otherwise discharged home in stable condition and will follow-up with his primary care provider as scheduled, sooner if needed. Undiagnosed new problem with uncertain prognosis? @ -None Drug Therapy requiring intensive monitoring for toxicity (Heparin, Nitro, Insulin, Cardizem)? @ -None Were any procedures done? @ -None Diagnosis/symptom? @ -COVID-19, back pain, Abdominal pain Acute, or Chronic, or Acute on Chronic? @ -Acute Uncomplicated (without systemic symptoms) or Complicated (systemic symptoms)? @ -Uncomplicated Side effects of treatment? @ -None Exacerbation, Progression, or Severe Exacerbation] @ -Not applicable Poses a threat to life or bodily function? @ -No Return precautions reviewed in depth, the patient is instructed to return to the emergency department with any new, worsening, or concerning symptoms. Patient verbalized understanding. This case was discussed in detail with the attending ED physician, Dr. Kumar. Presentation, findings, and treatment plan discussed in detail as well. (Rhoda Yeager) - Lab Data Lab Results 10/10/23 10/10/23 10/10/23 Range/Units 23:15 23:15 23:15 WBC 4.6 (3.8-10.6) k/uL RBC 5.71 (4.30-5.90) m/uL Hgb 16.4 (13.0-17.5) gm/dL Hct 46.5 (39.0-53.0) % MCV 81.4 (80.0-100.0) fL MCH 28.7 (25.0-35.0) pg MCHC 35.3 (31.0-37.0) g/dL RDW 12.9 (11.5-15.5) % Plt Count 281 (150-450) k/uL MPV 7.2 Neutrophils % 38 % Lymphocytes % 51 % Monocytes % 6 % Eosinophils % 2 % Basophils % 1 % Neutrophils # 1.8 (1.3-7.7) k/uL Lymphocytes # 2.3 (1.0-4.8) k/uL Monocytes # 0.3 (0-1.0) k/uL Eosinophils # 0.1 (0-0.7) k/uL Basophils # 0.0 (0-0.2) k/uL PT 10.2 (10.0-12.5) sec INR 0.9 (<1.2) APTT 25.5 (22.0-30.0) sec Sodium 134 L (137-145) mmol/L Potassium 4.0 (3.5-5.1) mmol/L Chloride 99 (98-107) mmol/L Carbon Dioxide 20 L (22-30) mmol/L Anion Gap 15 mmol/L BUN 18 (9-20) mg/dL Creatinine 0.92 (0.66-1.25) mg/dL Est GFR (CKD-EPI)AfAm >90 (>60 ml/min/1.73 sqM) Est GFR (CKD-EPI)NonAf >90 (>60 ml/min/1.73 sqM) Glucose 118 H (74-99) mg/dL Calcium 9.8 (8.4-10.2) mg/dL Magnesium 1.6 (1.6-2.3) mg/dL Total Bilirubin 0.7 (0.2-1.3) mg/dL AST 44 (17-59) U/L ALT 50 H (4-49) U/L Alkaline Phosphatase 96 (38-126) U/L Troponin I (0.000-0.034) ng/mL Total Protein 7.7 (6.3-8.2) g/dL Albumin 4.7 (3.5-5.0) g/dL Influenza Type A (PCR) (Not Detectd) Influenza Type B (PCR) (Not Detectd) RSV (PCR) (Not Detectd) SARS-CoV-2 (PCR) (Not Detectd) 10/10/23 10/11/23 10/11/23 Range/Units 23:15 02:02 02:02 WBC (3.8-10.6) k/uL RBC (4.30-5.90) m/uL Hgb (13.0-17.5) gm/dL Hct (39.0-53.0) % MCV (80.0-100.0) fL MCH (25.0-35.0) pg MCHC (31.0-37.0) g/dL RDW (11.5-15.5) % Plt Count (150-450) k/uL MPV Neutrophils % % Lymphocytes % % Monocytes % % Eosinophils % % Basophils % % Neutrophils # (1.3-7.7) k/uL Lymphocytes # (1.0-4.8) k/uL Monocytes # (0-1.0) k/uL Eosinophils # (0-0.7) k/uL Basophils # (0-0.2) k/uL PT (10.0-12.5) sec INR (<1.2) APTT (22.0-30.0) sec Sodium (137-145) mmol/L Potassium (3.5-5.1) mmol/L Chloride (98-107) mmol/L Carbon Dioxide (22-30) mmol/L Anion Gap mmol/L BUN (9-20) mg/dL Creatinine (0.66-1.25) mg/dL Est GFR (CKD-EPI)AfAm (>60 ml/min/1.73 sqM) Est GFR (CKD-EPI)NonAf (>60 ml/min/1.73 sqM) Glucose (74-99) mg/dL Calcium (8.4-10.2) mg/dL Magnesium (1.6-2.3) mg/dL Total Bilirubin (0.2-1.3) mg/dL AST (17-59) U/L ALT (4-49) U/L Alkaline Phosphatase (38-126) U/L Troponin I <0.012 <0.012 (0.000-0.034) ng/mL Total Protein (6.3-8.2) g/dL Albumin (3.5-5.0) g/dL Influenza Type A (PCR) Not Detected (Not Detectd) Influenza Type B (PCR) Not Detected (Not Detectd) RSV (PCR) Not Detected (Not Detectd) SARS-CoV-2 (PCR) Detected A (Not Detectd) Disposition <Kaycee Ramírez - Last Filed: 10/10/23 22:08> Is patient prescribed a controlled substance at d/c from ED?: No <Rhoda Yeager - Last Filed: 10/11/23 03:29> Clinical Impression: COVID-19, Back pain, Abdominal pain Disposition: HOME SELF-CARE Instructions (If sedation given, give patient instructions): COVID-19 (Coronavirus Disease 2019) (ED), How to Recover from COVID-19 at Home (ED) Additional Instructions: Return to the emergency department with any new, worsening, or concerning symptoms. Alternate with ibuprofen and Tylenol as needed for pain relief. You can take the Robaxin as 1-2 tablets up to 3-4 times daily for pain and tightness. You can also take [id number] antacid medication to help with the indigestion or stomach upset. Follow up with your primary care provider as scheduled. Prescriptions: methocarbamoL [Robaxin-750] 1,500 mg PO TID PRN #30 tab PRN Reason: Pain Referrals: Paulo Rowell MD [Primary Care Provider] - 1-2 days
[2023-10-10 22:27] VITALS: TEMP 98
[2023-10-10 23:26] LABS: Basophils % (A) 1 %; Eosinophils # (A) 0.1 k/uL (0-0.7); Eosinophils % (A) 2 %; HCT 46.5 % (39.0-53.0); HGB 16.4 gm/dL (13.0-17.5); Lymphocytes # (A) 2.3 k/uL (1.0-4.8); Lymphocytes % (A) 51 %; MCH 28.7 pg (25.0-35.0); MCHC 35.3 g/dL (31.0-37.0); MCV 81.4 fL (80.0-100.0); Mean Platelet Volume 7.2; Monocytes # (A) 0.3 k/uL (0-1.0); Monocytes % (A) 6 %; Neutrophils # (A) 1.8 k/uL (1.3-7.7); Neutrophils % (A) 38 %; Platelet Count 281 k/uL (150-450); RBC 5.71 m/uL (4.30-5.90); RDW 12.9 % (11.5-15.5); WBC 4.6 k/uL (3.8-10.6)
[2023-10-10 23:34] LABS: INR 0.9 (<1.2)
[2023-10-10 23:35] LABS: Partial Thromboplastin Time 25.5 sec (22.0-30.0); Prothrombin Time 10.2 sec (10.0-12.5)
[2023-10-10 23:36] LABS: ALT 50 U/L (4-49); AST 44 U/L (17-59); African American GFR (CKD) >90 (>60 ml/min/1.73 sqM); Albumin 4.7 g/dL (3.5-5.0); Alkaline Phosphatase 96 U/L (38-126); Anion Gap 15 mmol/L; Blood Urea Nitrogen 18 mg/dL (9-20); Calcium 9.8 mg/dL (8.4-10.2); Carbon Dioxide 20 mmol/L (22-30); Chloride 99 mmol/L (98-107); Glucose 118 mg/dL (74-99); Magnesium 1.6 mg/dL (1.6-2.3); Non-African American GFR(CKD) >90 (>60 ml/min/1.73 sqM); Sodium 134 mmol/L (137-145); Total Bilirubin 0.7 mg/dL (0.2-1.3); Total Protein 7.7 g/dL (6.3-8.2)
--- NOTE | 2023-10-10 23:49 | XR ---
EXAM: XR Chest, 2 Views CLINICAL HISTORY: ITS.REASON XR Reason: Chest Pain TECHNIQUE: Frontal and lateral views of the chest. COMPARISON: No relevant prior studies available. FINDINGS: Lungs: Azygos fissure. No consolidation. Pleural space: Unremarkable. No pneumothorax. Heart: Unremarkable. No cardiomegaly. Mediastinum: Unremarkable. Normal mediastinal contour. Bones/joints: Unremarkable. No acute fracture. IMPRESSION: No acute findings in the chest.
[2023-10-11] MEDS ORDERED: ONDANSETRON 4 MG/2 ML VIAL IVP STA (01:38)
[2023-10-11] MEDS ORDERED: SODIUM CHLORIDE 0.9% 1,000 ML IV STA (01:38)
[2023-10-11] MEDS ORDERED: FAMOTIDINE 20 MG/2 ML VIAL IV STA (01:38)
[2023-10-11] MEDS ORDERED: KETOROLAC 15 MG/ML 1 ML VIAL IVP STA (01:38)
[2023-10-11] MEDS ORDERED: ORPHENADRINE 30 MG/ML 2 ML VIAL IVP STA (01:38)
[2023-10-11 02:28] VITALS: BP 121/85; PULSE 80; RESP 18
[2023-10-11] MEDS ORDERED: ACET/COD 300 MG/30 MG STARTER PACK 6 TAB BTL PO STA (02:54)
[2023-10-11] MEDS ORDERED: ONDANSETRON 4 MG ODT STARTER PACK 2 TAB BTL PO STA (02:54)
[2023-10-11] MEDS ORDERED: DEXAMETHASONE SOD PHOSPHATE 10 MG/ML 1 ML VIAL IVP STA (02:55)
== END 2023-10-11 03:18 | disposition home or self-care (01) ==
LOC: EC 21:45
DX: U07.1 COVID-19 (principal); M54.9 Dorsalgia, unspecified; R10.9 Unspecified abdominal pain; I25.10 Atherosclerotic heart disease of native coronary artery without angina pectoris; K21.9 Gastro-esophageal reflux disease without esophagitis; I10 Essential (primary) hypertension; I25.2 Old myocardial infarction; G47.30 Sleep apnea, unspecified; F17.200 Nicotine dependence, unspecified, uncomplicated; Z79.899 Other long term (current) drug therapy
CPT/HCPCS: 36415; 71046; 80053; 83735; 84484; 85025; 85610; 85730; 87636; 93005; 96361; 96374; 96375; 99284

== ENCOUNTER → 2023-11-21 | Outpatient (CLI) | payer OTHER ==
--- NOTE | 2023-11-21 17:57 | P.PN ---
Progress Note - Text Progress Note Date: 11/21/23 This is a very pleasant 53-year-old male patient was coming in for a compliance check regarding his obstructive sleep apnea. The patient had severe LIBRADO with an AHI of 58. The patient also had a component of central sleep apnea in combination with obstructive sleep apnea. The patient was having some difficulties with his CPAP therapy as the patient continued to have residual obstructive and central events. I had to lower his CPAP machine pressure down to 9 cm of water and subsequently I increase it up to 10 cm and I'm in the process of gradually increasing his CPAP pressure while watching is central events. Note that he is becoming more compliant. He has achieved already compliancy on his machine. Nevertheless, the numbers need to be further adjusted. He was infected with Covid 19 in September 2023 and he recovers. He subsequently traveled and he forgot to take his machine with him. Nevertheless, over the past 30 days, noted that the patient has become extremely successful his treatment averaging on 5.5 hours of CPAP use per night and his AHI is down to 13.3 without any central events. His leak is only at 20 L/m nasal His current vitals he is BP is 135/79, pulse is 82, respirations 16, temperature 98.0, weight is 251 and [place] score is at 5. Body mass index is 39.3 The patient appeared well nourished and normally developed. Vital signs as documented. Head exam is unremarkable. No scleral icterus or corneal arcus noted. Neck is without jugular venous distension, thyromegaly, or carotid bruits. Carotid upstrokes are brisk bilaterally. Lungs are clear to auscultation and percussion. Cardiac exam reveals the PMI to be normally sized and situated. Rhythm is regular. First and second heart sounds normal. No murmurs, rubs or gallops. Abdominal exam reveals normal bowel sounds, no masses, no organomegaly and no aortic enlargement. Extremities are nonedematous and both femoral and pedal pulses are normal.Examination of the skin revealed no evidence of significant rashes, suspicious appearing nevi or other concerning lesions. Neurologically, the patient is awake and alert and the patient does not have any focal neurological deficit. Cranial nerves are essentially intact. Assessment Severe symptomatic sleep apnea combination of obstructive and central the patient is achieving adequate clinical response on CPAP therapy. He is becoming more compliant and the patient is demonstrating adequate clinical response. Note that his AHI originally was at 58 and the patient had a central apnea index of 19. He was initially treated with a CPAP pressure of 9 and subsequently the pressure was brought up to 10. On today's compliancy, he does have some residual obstructive and 40 breasts without any central events. Hypersomnia, improving Obesity, weight is stable at 251 Coronary artery disease Hypertension Hyperlipidemia Previous history of CVA Obesity Plan I'm going to increase his CPAP pressure up to 11 cm of water. We'll keep the same mask interface. The patient is doing extremely well for now. I'm hoping to eliminate obstructive ventilatory events while not causing any central events emerging during therapy. Encourage weight loss. Continue same treatment. See me back in 6 months time. I'm very pleased with his overall response and the patient is also demonstrating adequate clinical response while in treatment.
== END ==
LOC: 3 N SLEEP 13:06
PROVIDERS: ATTEND Internal Medicine Critical Care Medicine
DX: G47.33 Obstructive sleep apnea (adult) (pediatric) (principal); G47.31 Primary central sleep apnea; G47.10 Hypersomnia, unspecified; E78.5 Hyperlipidemia, unspecified; E66.9 Obesity, unspecified; I10 Essential (primary) hypertension; F12.90 Cannabis use, unspecified, uncomplicated; F17.200 Nicotine dependence, unspecified, uncomplicated; I25.10 Atherosclerotic heart disease of native coronary artery without angina pectoris; Z86.73 Personal history of transient ischemic attack (TIA), and cerebral infarction without residual deficits; Z79.82 Long term (current) use of aspirin; Z79.899 Other long term (current) drug therapy; Z79.01 Long term (current) use of anticoagulants
CPT/HCPCS: 99212

== ENCOUNTER → 2024-07-30 | Outpatient (CLI) | payer OTHER ==
[2024-07-30 15:02] VITALS: BP 108/74; PULSE 77; RESP 18; TEMP 98.2
--- NOTE | 2024-07-30 15:26 | P.PN ---
Progress Note - Text Progress Note Date: 07/30/24 64-year-old male patient with known history of obstructive sleep apnea, see me for an annual check regarding his LIBRADO. The patient is known to have severe LIBRADO with an AHI of 58 and the patient was treated with a CPAP machine initially at a pressure of 9 cm of water and subsequently pressure was brought up to 10 cm and later on to 11 cm of water. Noted he had a combination of mild central and predominantly obstructive sleep apnea. As such, the CPAP pressure was brought up gradually. During his last evaluation in November 2023, he continued to have residual obstructive respiratory events and his AHI was 13.3 without any central events. Based on that, increase his pressure from 10 to 11 cm of water. On today's evaluation, the patient is averaging around 5 hours and 32 minutes of CPAP use per night. His AHI is down to 10.7. The central apnea index is low at 0.6. As such, there is room for further increase his CPAP pressure. He has no other complaints otherwise. His humidity is automatic and the temperature of the tube is set at 81 F. He is doing well. No major hypersomnia or sleepiness during the day. Leak is in the order of 14 L/min. No morning headaches. No significant hypersomnia or sleepiness. Blood pressure is 108/74 with a pulse of 77 and respiration of 16 and a temperature 98.2. Weight is 242 and his body mass index is 40.4 and [place] score is 6 The patient appeared well nourished and normally developed. Vital signs as documented. Head exam is unremarkable. No scleral icterus or corneal arcus noted. Neck is without jugular venous distension, thyromegaly, or carotid bruits. Carotid upstrokes are brisk bilaterally. Lungs are clear to auscultation and percussion. Cardiac exam reveals the PMI to be normally sized and situated. Rhythm is regular. First and second heart sounds normal. No murmurs, rubs or gallops. Abdominal exam reveals normal bowel sounds, no masses, no organomegaly and no aortic enlargement. Extremities are nonedematous and both femoral and pedal pulses are normal. Examination of the skin revealed no evidence of significant rashes, suspicious appearing nevi or other concerning lesions. Neurologically, the patient is awake and alert and the patient does not have any focal neurological deficit. Cranial nerves are essentially intact. Medications include Plavix, metoprolol, Lipitor, aspirin , lansoprazole, olmesartan Assessment Severe symptomatic LIBRADO with an AHI of 58. The patient is currently on a CPAP pressure of 11 cm of water. Compliance to check was done and it was noted that the patient still having some residual obstructive respiratory events. Chronic hypersomnia, improved and the treatment [place] score is down to 6 Obesity with a BMI of 40.4 Chronic hypersomnia Coronary artery disease Previous history of CVA Hypertension Hyperlipidemia Plan Will increase the CPAP pressure to 12 cm of water. I dropped a temperature of the tubing down to 74 F. I kept the humidity controlled to automatic. Encourage weight loss. Optimize sleep hygiene measures. Continues functional. The patient will see him back in a year time in follow-up.
== END ==
LOC: 3 N SLEEP 14:27
PROVIDERS: ATTEND Internal Medicine Critical Care Medicine
CPT/HCPCS: 99212

== ENCOUNTER → 2024-08-21 | Outpatient (CLI) | payer OTHER ==
--- NOTE | 2024-08-21 15:25 | US ---
EXAMINATION TYPE: US arterial LE single level DATE OF EXAM: 08/21/2024 3:09 PM CLINICAL INDICATION: Male, 54 years old with history of M79.671 R FT PAIN M79.672 L FT PAIN M79.605 L LEG; Pt states bilateral foot pain History of: Smoker: Previous Hypertension: Yes Diabetic: No Hyperlipidemia: Yes TIA/CVA: Yes Previous Vascular Surgery: Prev heart stent CAD: Yes IA: Yes Vascular Ulcers: No Doppler Waveforms: Right: Multiphasic Left: Multiphasic Right Brachial Pressure: 147 Left Brachial Pressure: 137 Ankle-Brachial Indices: Right: 1.0 Left: 1.0 (Vessel hardening > 1.4; Normal 0.9 - 1.4, Moderate 0.7 - 0.9, Severe 0.5-0.7) IMPRESSION: Normal bilateral MARION. [facility], , 08/21/2024 3:23 PM
== END | disposition home or self-care (01) ==
LOC: RADUSWWP 14:33
PROVIDERS: ATTEND Family Medicine
DX: M79.671 Pain in right foot (principal); M79.672 Pain in left foot; M79.605 Pain in left leg; M79.604 Pain in right leg; E78.5 Hyperlipidemia, unspecified; I10 Essential (primary) hypertension; I25.10 Atherosclerotic heart disease of native coronary artery without angina pectoris; Z86.73 Personal history of transient ischemic attack (TIA), and cerebral infarction without residual deficits; Z95.5 Presence of coronary angioplasty implant and graft; Z87.891 Personal history of nicotine dependence
CPT/HCPCS: 93922

== ENCOUNTER 2025-04-16 17:46 | Emergency (ER) | payer MEDICARE, OTHER ==
[2025-04-16 17:53] VITALS: TEMP 98.2
--- NOTE | 2025-04-16 18:06 | ED ---
Chest Pain HPI - General Source: patient, RN notes reviewed Mode of arrival: ambulatory Limitations: no limitations <Alyse Walton - Last Filed: 04/16/25 18:05> - History of Present Illness MD Complaint: other (Palpitations) Onset/Timin -: days(s) Onset: during rest Severity scale (1-10): 0 Improves With: nothing Worsens With: nothing Other Symptoms: palpitations Treatments Prior to Arrival: none <Oscar Leger - Last Filed: 05/07/25 04:38> - General Chief Complaint: Chest Pain Stated Complaint: feeling irregular heartbeat Time Seen by Provider: 04/16/25 18:05 - History of Present Illness Initial Comments: 54-year-old male presented the ER for evaluation of palpitations. Patient reports a history of RI with cardiac stent placement and TIA. He follows up with Dr. Root. Patient reports yesterday he started to experience intermittent palpitations. These did continue into today. He states he feels "off". He denies any chest pain, shortness of breath, dizziness, lightheadedness, nausea, vomiting or diaphoresis. (Alyse Walton) Agree with above patient had palpitations yesterday in the afternoon/evening. He experienced more today. He did not note other symptoms associated. No dyspnea, diaphoresis, pain, nausea or vomiting. The patient states he had previously worn a Holter monitor after having had his stroke and it was unremarkable. (Oscar Leger) - Related Data Home Medications Medication Instructions Recorded Confirmed Metoprolol Tartrate [Lopressor] 25 mg PO BID 01/07/19 07/30/24 Olmesartan/Hydrochlorothiazide 1 tab PO DAILY 01/07/19 07/30/24 [Benicar Hct 40-12.5 mg Tablet] Lansoprazole [Prevacid] 15 mg PO DAILY 05/20/20 07/30/24 Clopidogrel [Plavix] 75 mg PO DAILY 07/30/24 07/30/24 Ergocalciferol [Vitamin D2 (1250 1,250 mcg PO WEEKLY 07/30/24 07/30/24 Mcg = 79221 Iu)] Previous Rx's Medication Instructions Recorded Aspirin 325 mg PO DAILY #0 tab 06/23/22 Atorvastatin [Lipitor] 80 mg PO HS #90 tab 06/23/22 metFORMIN HCL [Glucophage] 500 mg PO BID-W/MEALS #180 tab 06/23/22 Ticagrelor [Brilinta] 90 mg PO BID #60 tab 06/29/22 methocarbamoL [Robaxin-750] 1,500 mg PO TID PRN #30 tab 10/11/23 Allergies Allergy/AdvReac Type Severity Reaction Status Date / Time No Known Allergies Allergy Verified 10/10/23 22:08 Review of Systems ROS Other: All systems not noted in ROS Statement are negative. <Alyse Walton - Last Filed: 04/16/25 18:05> ROS Other: All systems not noted in ROS Statement are negative. Constitutional: Denies: fever, chills Respiratory: Denies: cough, dyspnea Cardiovascular: Reports: palpitations. Denies: chest pain, orthopnea, edema, syncope Gastrointestinal: Denies: abdominal pain, nausea, vomiting Genitourinary: Denies: dysuria, hematuria Musculoskeletal: Denies: back pain Skin: Denies: rash Neurological: Denies: headache, weakness, numbness <Oscar Lgeer - Last Filed: 05/07/25 04:38> ROS Statement: Those systems with pertinent positive or pertinent negative responses have been documented in the HPI. EKG Findings - EKG Results: EKG: interpreted by ERMTristin, sinus rhythm (Rate 86 bpm), normal axis, normal QRS, normal ST/T, no acute changes - RI, Pacemaker, Normal: Normal tracing: normal tracing <Oscar Leger - Last Filed: 05/07/25 04:38> Past Medical History Past Medical History: Coronary Artery Disease (CAD), CVA/TIA, GERD/Reflux, Hyperlipidemia, Hypertension, Myocardial Infarction (RI), Sleep Apnea/CPAP/BIPAP Additional Past Medical History / Comment(s): TIA Last Myocardial Infarction Date:: 05/2018 History of Any Multi-Drug Resistant Organisms: None Reported Past Surgical History: Heart Catheterization With Stent, Hernia Repair Additional Past Surgical History / Comment(s): PCI with stents, bilateral inguinal hernia repairs, EGD, vasectomy, bilateral eye cataracts. Past Anesthesia/Blood Transfusion Reactions: Previous Problems w/ Anesthesia Additional Past Anesthesia/Blood Transfusion Reaction / Comment(s): pt states stopped breathing during egd, oxygen applied resolved Date of Last Stent Placement:: 05/2018 Past Psychological History: No Psychological Hx Reported Smoking Status: Former smoker - Past Family History Father Family Medical History: Vascular Disorder Additional Family Medical History / Comment(s): from circulation issues at the age of 63 Mother Family Medical History: Cancer Additional Family Medical History / Comment(s): from CA at the age of 58 <Alyse Walton - Last Filed: 04/16/25 18:05> General Exam Limitations: no limitations <Alyse Walton - Last Filed: 04/16/25 18:05> Limitations: no limitations General appearance: alert, in no apparent distress Head exam: Present: atraumatic, normocephalic Eye exam: Present: normal appearance. Absent: scleral icterus, conjunctival injection ENT exam: Present: normal oropharynx Neck exam: Present: normal inspection Respiratory exam: Present: normal lung sounds bilaterally. Absent: respiratory distress, wheezes, rales, rhonchi, stridor, chest wall tenderness, accessory muscle use Cardiovascular Exam: Present: regular rate, normal rhythm, normal heart sounds. Absent: systolic murmur, diastolic murmur, rubs, gallop GI/Abdominal exam: Present: soft. Absent: distended, tenderness, guarding, rebound, rigid, mass Extremities exam: Present: normal inspection, normal capillary refill. Absent: pedal edema, calf tenderness Back exam: Present: normal inspection Neurological exam: Present: alert Skin exam: Present: warm, dry, intact, normal color. Absent: rash <Oscar Leger - Last Filed: 05/07/25 04:38> - General Exam Comments Initial Comments: Visual Physical Exam Vital signs reviewed General: Well-appearing, nontoxic, no acute distress. Head: Normocephalic, atraumatic Eyes: PERRLA, EOMI ENT: Airway patent Chest: Nonlabored breathing Skin: No visual rash, normal skin tone Neuro: Alert and oriented 3 Musculoskeletal: No gross abnormalities (Alyse Walton) Course Vital Signs 04/16/25 04/16/25 17:51 21:20 Temperature 98.2 F Pulse Rate 82 75 Respiratory 20 18 Rate Blood Pressure 134/81 135/90 O2 Sat by Pulse 99 99 Oximetry Chest Pain MDM <Alyse Walton - Last Filed: 04/16/25 18:05> <Oscar Leger - Last Filed: 05/07/25 04:38> - MDM I performed the quick note portion of this chart. Electronically signed by Alyse Walton PA-C (Alyse Walton) This patient had two-view chest x-ray that I interpreted as negative for acute infiltrate, pneumothorax, congestive heart failure. I reviewed the studies with the patient and he continues to feel well, not having any symptoms currently. We discussed appropriate further care and follow-up. He will discuss with his coffee brewer whether he needs to have another Holter study again. He will return should any symptoms develop or if the palpitations change in any way. Was pt. sent in by a medical professional or institution (, [facility], ELEMENTARY SCHOOL COUNSELOR, urgent care, hospital, or jail...) When possible be specific @ -[No] Did you speak to anyone other than the patient for history (EMS, parent, family, police, friend...)? What history was obtained from this source @ -[No] Did you review nursing and triage notes (agree or disagree)? Why? @ -[I reviewed and agree with nursing and triage notes] Were old charts reviewed (outside hosp., previous admission, EMS record, old EKG, old radiological studies, urgent care reports/EKG's, jail records)? Report findings @ -[No old charts were reviewed] Differential Diagnosis (chest pain, altered mental status, abdominal pain women, abdominal pain men, vaginal bleeding, weakness, fever, dyspnea, syncope, head ache, dizziness, GI bleed, back pain, seizure, CVA, palpatations, mental health, musculoskeletal)? @ -[Differential Palpitations Ventricular arrhythmias, atrial arrhythmias, myocardial infarction, anemia, thyrotoxicosis, electrolyte imbalance, hypokalemia, pulmonary embolism, pulmonary disease, drugs, alcohol, anxiety, stress.... This is not meant to be an all-inclusive list. EKG interpreted by me (3pts min.). @ -[I interpreted as above] X-rays interpreted by me (1pt min.). @ -[I interpreted as above CT interpreted by me (1pt min.). @ -[None done] U/S interpreted by me (1pt. min.). @ -[None done] What testing was considered but not performed or refused? (CT, X-rays, U/S, labs)? Why? @ -[None] What meds were considered but not given or refused? Why? @ -[None] Did you discuss the management of the patient with other professionals (professionals i.e. , PA, ELEMENTARY SCHOOL COUNSELOR, lab, RT, psych nurse, medical social worker, edge burnisher, teacher, defence force senior officer, case investigator)? Give summary @ -[No] Was smoking cessation discussed for >3mins.? @ -[No] Was critical care preformed (if so, how long)? @ -[No] Were there social determinants of health that impacted care today? How? (Homelessness, low income, unemployed, alcoholism, drug addiction, transportation, low edu. Level, literacy, decrease access to med. care, long-term, rehab)? @ -[No] Was there de-escalation of care discussed even if they declined (Discuss DNR or withdrawal of care, Hospice)? DNR status @ -[No] What co-morbidities impacted this encounter? (DM, HTN, Smoking, COPD, CAD, Cancer, CVA, ARF, Chemo, Hep., AIDS, mental health diagnosis, sleep apnea, morbid obesity)? @ -[None] Was patient admitted / discharged? Hospital course, mention meds given and route, prescriptions, significant lab abnormalities, going to OR and other pertinent info. @ -[See above Undiagnosed new problem with uncertain prognosis? @ -[No] Drug Therapy requiring intensive monitoring for toxicity (Heparin, Nitro, Insulin, Cardizem)? @ -[No] Were any procedures done? @ -[No] Diagnosis/symptom? @ -[Acute palpitations Acute, or Chronic, or Acute on Chronic? @ -[Acute Uncomplicated (without systemic symptoms) or Complicated (systemic symptoms)? @ -[Uncomplicated Side effects of treatment? @ -[No] Exacerbation, Progression, or Severe Exacerbation? @ -[No] Poses a threat to life or bodily function? How? (Chest pain, [place], RI, pneumonia, PE, COPD, DKA, ARF, appy, cholecystitis, CVA, Diverticulitis, Homicidal, Suicidal, threat to staff... and all critical care pts) @ -[No] All treatments are based on ideal body weight as in ED triage (Oscar Leger) Disposition <Alyse Walton - Last Filed: 04/16/25 18:05> Is patient prescribed a controlled substance at d/c from ED?: No <Oscar Leger - Last Filed: 05/07/25 04:38> Clinical Impression: Palpitations Disposition: HOME SELF-CARE Condition: Good Instructions (If sedation given, give patient instructions): Heart Palpitations (DC) Referrals: Paulo Rowell MD [Primary Care Provider] - 1-2 days
[2025-04-16 18:11] LABS: Basophils # (A) 0.07 10*3/uL (0.00-0.10); Basophils % (A) 1.1 %; Eosinophils # (A) 0.08 10*3/uL (0.04-0.35); Eosinophils % (A) 1.3 %; HCT 42.8 % (39.6-50.0); Lymphocytes # (A) 2.47 10*3/uL (0.90-5.00); Lymphocytes % (A) 40.2 %; MCH 28.1 pg (27.0-32.0); MCV 80.1 fL (80.0-97.0); Mean Platelet Volume 9.1 fL (9.5-12.2); Monocytes % (A) 8.1 %; Neutrophils # (A) 3.01 10*3/uL (1.80-7.70); Platelet Count 330 10*3/uL (140-440); RBC 5.34 10*6/uL (4.40-5.60); RDW 12.9 % (11.5-14.5); WBC 6.15 10*3/uL (4.50-10.00)
[2025-04-16 18:24] LABS: ALT 45 U/L (4-49); AST 31 U/L (17-59); African American GFR (CKD) >90 (>60 ml/min/1.73 sqM); Albumin 4.5 g/dL (3.5-5.0); Alkaline Phosphatase 115 U/L (38-126); Anion Gap 11 mmol/L; Blood Urea Nitrogen 24 mg/dL (9-20); Calcium 9.6 mg/dL (8.4-10.2); Carbon Dioxide 23 mmol/L (22-30); Chloride 103 mmol/L (98-107); Glucose 150 mg/dL (74-99); Magnesium 1.8 mg/dL (1.6-2.3); Non-African American GFR(CKD) 80 (>60 ml/min/1.73 sqM); Potassium 4.1 mmol/L (3.5-5.1); Sodium 137 mmol/L (137-145); Total Bilirubin 0.9 mg/dL (0.2-1.3); Total Protein 7.3 g/dL (6.3-8.2)
[2025-04-16 18:25] LABS: Partial Thromboplastin Time 25.6 sec (22.0-30.0); Prothrombin Time 10.7 sec (10.0-12.5)
--- NOTE | 2025-04-16 19:03 | XR ---
EXAMINATION TYPE: XR chest 2V DATE OF EXAM: 04/16/2025 6:31 PM COMPARISON: 10/02/2023 CLINICAL INDICATION: Male, 54 years old with history of Chest Pain, TECHNIQUE: XR chest 2V view(s) obtained. FINDINGS: The heart size is normal. The pulmonary vasculature is normal. The lungs are clear. IMPRESSION: 1. No acute pulmonary process. [facility], , 04/16/2025 7:00 PM
[2025-04-16 21:21] VITALS: BP 135/90; PULSE 75; RESP 18
== END 2025-04-16 21:44 | disposition home or self-care (01) ==
LOC: EC 17:46
DX: R00.2 Palpitations (principal); Z86.73 Personal history of transient ischemic attack (TIA), and cerebral infarction without residual deficits; Z87.891 Personal history of nicotine dependence
CPT/HCPCS: 36415; 71046; 80053; 83735; 84484; 85025; 85610; 85730; 93005; 99285